=== PATIENT | female | born 1965 | race Caucasian/White ===

== ENCOUNTER → 2023-10-20 12:43 | Outpatient (REF) | payer OTHER, SELFPAY | LOC: RADI 12:43 | PROVIDERS: ATTENDING PHYSICIAN Surgery; FAMILY PHYSICIAN Nurse Practitioner Family | DX: Z46.82 Encounter for fitting and adjustment of non-vascular catheter (principal); K65.1 Peritoneal abscess | CPT/HCPCS: 49424; 76080 ==

== ENCOUNTER → 2024-01-02 12:45 | Outpatient (REF) | payer OTHER, SELFPAY ==
[2024-01-02 13:00] VITALS: BP 162/85; BP_SYST 79
[2024-01-02 13:38] VITALS: BP 148/95; BP_SYST 74
[2024-01-02 13:52] VITALS: BP 148/95
== END ==
LOC: RADI 12:45
PROVIDERS: ATTENDING PHYSICIAN Surgery; FAMILY PHYSICIAN Nurse Practitioner Family
DX: K57.20 Diverticulitis of large intestine with perforation and abscess without bleeding (principal); K63.2 Fistula of intestine
CPT/HCPCS: 49423; 75984; C1729; C1769

== ENCOUNTER 2024-01-06 17:08 | Emergency (ER) | payer OTHER, SELFPAY ==
[2024-01-06 17:09] VITALS: BP 142/95
[2024-01-06] MEDS: OMNIPAQUE 50 ML PO (17:53)
[2024-01-06 18:00] VITALS: BP 141/116
[2024-01-06 18:01] VITALS: BMI 20.2
[2024-01-06] MEDS: NSS 500 IV (18:13)
[2024-01-06 18:22] LABS: % Basophils 1.1 % (0-2); % Eosinophils 2.4 % (0-6); % Immature Granulocytes 0.2 % (0-0.5); % Lymphocytes 26.2 % (20.5-51.1); % Monocytes 6.3 % (1.7-9.3); % Neutrophils 63.8 % (42.2-75.2); Absolute Basophils 0.1 10^3/uL (0-0.2); Absolute Eosinophils 0.2 10^3/uL (0-0.7); Absolute Lymphocytes 2.2 10^3/uL (1.2-3.4); Absolute Monocytes 0.5 10^3/uL (0.1-0.6); Absolute Neutrophils 5.4 10^3/uL (1.4-6.5); Hematocrit 40.6 % (37.0-47.0); Hemoglobin 14.6 g/dL (12.0-16.0); Mean Corpuscular Hgb 31.1 pg (27.0-31.0); Mean Corpuscular Volume 86.6 fL (81.0-99.0); Mean Platelet Volume 8.8 fL (7.4-10.4); Nucleated Red Blood Cells % 0 %; Platelet Count 407 10^3/uL (130-400); Red Blood Cell Count 4.69 10^6/uL (4.20-5.40); Red Cell Dist. Width 12.1 % (11.5-14.5); White Blood Cell Count 8.5 10^3/uL (4.8-10.8)
[2024-01-06 18:33] LABS: Blood Urea Nitrogen 16 mg/dl (7-17); Calcium 11.2 mg/dl (8.4-10.2); Carbon Dioxide 28 mmol/L (22-30); Chloride 101 mmol/L (98-107); Estimated Creatinine Clearance 91 ml/min; Glucose 101 mg/dl (70-99); Magnesium 2.1 mg/dl (1.6-2.3); Potassium 5.3 mmol/L (3.5-5.1); Sodium 135 mmol/L (135-145); eGFR > 60.00
[2024-01-06 19:00] VITALS: BP 143/80
--- NOTE | 2024-01-06 20:31 | ED.GENMED ---
History of Present Illness
General
Chief Complaint: Post Operative Problem(s)
Source: patient
Exam Limitations: none
Time Seen by Provider: 01/06/24 17:37
Nursing documentation reviewed up to this point in time: agreed with
Travel History
Have you had any contact with someone who has COVID-19?: No
Do you have any symptoms of coronavirus? Fever > 100 degrees, chills, cough, shortness of breath, sore throat, loss of taste or smell, muscle aches, or headache?: No
History of Present Illness
History of Present Illness:
Patient with history of intra-abdominal abscess likely secondary to diverticulitis in August 2023, who has had drain in place since then, presents to ED from colorectal surgeons office secondary to ongoing intermittent pelvic discomfort, after
catheter was exchanged 4 days ago. Denies fever or chills. Denies nausea or vomiting. Denies diarrhea. Denies new trauma. Denies loss of appetite.
Past History
Past History
ED Past Medical History: Asthma, GERD, Hypercholesterolemia and Other ('Angina', migraines, Endometriosis, Deviated septum, )
ED Past Surgical History: Cholecystectomy, (X 2), Tonsilectomy and Other (Tracheostomy with removal)
Social History
Tobacco: Non-smoker
Alcohol: None
Drug: None
Personal: Other (Seperated)
Living: with family
Employment: Employed
Review of Systems
Review of Systems
Allergies reviewed?: Yes
All Other Systems: ROS reviewed and negative except as documented in HPI and ROS
Constitutional: Reports no symptoms; Denies fever
EENT: Reports no symptoms
ABD/GI: Reports abdominal pain; Denies vomiting or diarrhea
Musculoskeletal: Reports no symptoms
Skin: Reports no symptoms
Neurological: Reports no symptoms
Phy Exam
Physical Exam
Physical Exam:
Physical Exam
General: no apparent distress, not acutely ill. afebrile
Head: nc/at. eomi
Neck: supple. no meningeal signs.
Abdomen: normal bowel sounds. mild suprapubic tenderness to palpation, with catheter in place, attached to bulb.
Neuro: alert and oriented. no focal neurological deficits
Skin: no rash
Psychiatric: well kept. interactive and cooperative
Extremities: no edema. no calf tenderness.
Course
Orders/Labs/Results
Orders:
Orders
01/06/24 17:43
0.9% Sodium Chloride 500 ml [Nss] 500 ml IV BOLUS
01/06/24 17:46
CT Abd/pel W Iv And Oral Contr Urgent
Comment:
Reason For Exam: Lower abd pain after catheter exchange
Iohexol [Omnipaque] See Protocol PO NOW STA
01/06/24 18:11
Basic Metabolic Panel Urgent
Complete Blood Count/With Diff Urgent
Magnesium Urgent
Abnormal Lab Results
01/06/24
18:11
MCH 31.1 H pg
(27.0-31.0)
Plt Count 407 H 10^3/uL
(130-400)
Potassium 5.3 H mmol/L
(3.5-5.1)
Glucose 101 H mg/dl
(70-99)
Calcium 11.2 H mg/dl
(8.4-10.2)
01/06/24 18:11
01/06/24 18:11
Vital Signs
Initial and Last Documented VS:
Initial Vital Signs
Temp Pulse Resp BP Pulse Ox
98.4 F 94 18 142/95 98
01/06/24 17:09 01/06/24 17:09 01/06/24 17:09 01/06/24 17:09 01/06/24 17:09
Last Documented Vital Signs
Temp Pulse Resp BP Pulse Ox
98.4 F 94 18 139/86 98
01/06/24 17:09 01/06/24 17:09 01/06/24 17:09 01/06/24 21:02 01/06/24 21:03
MDM/Problems Addressed
MDM/Problems Addressed:
CT abd/pel: no acute findings.
Discussed with (colorectal surgery) - recommends catheter removal and office f/u in 1-2 wks.
Catheter successfully removed without complication. Pt is otherwise, afebrile, hemodynamically stable and nontoxic appearing at time of discharge, to the care of her family.
*Critical Care Note
Total Time (30-74mins, 75-104mins- exclusive of procedures): Not Applicable
ED Attending Note
-
Portions of this chart may have been created with voice recognition software.� Occasional wrong word or��sound alike� substitutions may have occurred due to the inherent limitations of voice recognition software.
Discharge Plan
Departure
Patient Disposition: Home (Routine Discharge)
Date of Disposition: 01/06/24
Time of Disposition: 20:56
Patient with high blood pressure during this ER visit?: Yes
Discharge Problem:
Abdominal pain
Instructions: Abdominal Pain
Prescriptions:
No Action
aspirin 81 MG tablet,delayed release (DR/EC)
81 mg PO DAILY PRN (Reason: chest pain)
albuterol sulfate 2.5 MG/3 ML solution for nebulization
2.5 mg inhalation R Q4HPRN PRN (Reason: shortness of breath) Qty: 30 0RF
pantoprazole 40 mg tablet,delayed release (DR/EC)
40 mg PO DAILY 30 Days Qty: 30 0RF
Referrals:
Kati Devine CRNP [Family Provider] -
Mino Mock MD [Active] -
Activity Restrictions/Additional Instructions:
As discussed, please follow-up with your colorectal surgeon for reevaluation in 1 to 2 weeks. Please return to ED with recurrent abdominal pain/fever/vomiting.
Interventions
Interventions:
*Risk Screen - Suicide Last Done: 01/06/24 18:01
*General Assessment Last Done: 01/06/24 18:01
*Neglect/Abuse Screening Last Done: 01/06/24 18:01
ED- Fall Risk Assessment Last Done: 01/06/24 18:01
*ED COVID-19 Vaccine History Last Done: 01/06/24 17:09
*Nursing Disposition Last Done: 01/06/24 21:06
ED-Skin Assessment Last Done: 01/06/24 18:01
Discharge Date and Time
Discharge Date/Time: 01/06/24 21:10
Print Language: THAI
[2024-01-06 21:02] VITALS: BP 139/86
== END 2024-01-06 21:10 | disposition home or self-care (01) ==
LOC: EMR 17:08
PROVIDERS: EMERGENCY PHYSICIAN Emergency Medicine; FAMILY PHYSICIAN Nurse Practitioner Family
DX: R10.2 Pelvic and perineal pain (principal); K65.1 Peritoneal abscess; K21.9 Gastro-esophageal reflux disease without esophagitis; E78.00 Pure hypercholesterolemia, unspecified; J45.909 Unspecified asthma, uncomplicated; I20.9 Angina pectoris, unspecified; G43.909 Migraine, unspecified, not intractable, without status migrainosus; N80.9 Endometriosis, unspecified; Z79.82 Long term (current) use of aspirin; Z90.49 Acquired absence of other specified parts of digestive tract; Z88.0 Allergy status to penicillin
CPT/HCPCS: 99285; 74177; 80048; 83735; 85025; Q9967

== ENCOUNTER 2024-01-14 00:46 | Inpatient (IN) | payer OTHER, SELFPAY ==
[2024-01-13 18:49] VITALS: BP 158/83
[2024-01-13 19:12] LABS: % Basophils 0.6 % (0-2); % Eosinophils 1.3 % (0-6); % Immature Granulocytes 0.7 % (0-0.5); % Lymphocytes 17.4 % (20.5-51.1); % Monocytes 9.2 % (1.7-9.3); % Neutrophils 70.8 % (42.2-75.2); Absolute Basophils 0.1 10^3/uL (0-0.2); Absolute Eosinophils 0.2 10^3/uL (0-0.7); Absolute Immature Granulocytes 0.1 10^3/uL (0-0.05); Absolute Lymphocytes 2.4 10^3/uL (1.2-3.4); Absolute Monocytes 1.3 10^3/uL (0.1-0.6); Absolute Neutrophils 9.7 10^3/uL (1.4-6.5); Hematocrit 39.7 % (37.0-47.0); Hemoglobin 14.2 g/dL (12.0-16.0); Mean Corp Hgb Conc. 35.8 g/dL (33.0-37.0); Mean Corpuscular Hgb 31.3 pg (27.0-31.0); Mean Corpuscular Volume 87.6 fL (81.0-99.0); Mean Platelet Volume 8.2 fL (7.4-10.4); Nucleated Red Blood Cells % 0 %; Platelet Count 463 10^3/uL (130-400); Red Blood Cell Count 4.53 10^6/uL (4.20-5.40); White Blood Cell Count 13.7 10^3/uL (4.8-10.8)
[2024-01-13 19:13] LABS: Urine Albumin Trace (Neg - Trace); Urine Bilirubin 1+ (Negative); Urine Character Clear (Clear); Urine Color Yellow; Urine Glucose Negative (Negative); Urine Ketone Negative (Negative); Urine Leukocyte 2+ (Negative); Urine Nitrite Negative (Negative); Urine Occult Blood 2+ (Negative); Urine Urobilinogen Negative (Neg - 1+)
[2024-01-13 19:24] LABS: Urine Squamous Cell >30 /LPF (Few)
[2024-01-13 19:25] LABS: Urine White Cell 16-20 /HPF (0-5)
[2024-01-13 19:26] LABS: Urine Bacteria Few (Negative)
[2024-01-13 19:34] LABS: ALT (SGPT) 10 U/L (0-35); AST (SGOT) 17 U/L (14-36); Albumin 4.5 g/dl (3.5-5.0); Alkaline Phosphatase 101 U/L (38-126); Blood Urea Nitrogen 15 mg/dl (7-17); Calcium 10.7 mg/dl (8.4-10.2); Carbon Dioxide 24 mmol/L (22-30); Chloride 99 mmol/L (98-107); Glucose 117 mg/dl (70-99); Potassium 4.1 mmol/L (3.5-5.1); Sodium 137 mmol/L (135-145); Total Bilirubin 0.6 mg/dl (0.2-1.3); Total Protein 8.4 g/dl (6.3-8.2); eGFR > 60.00
[2024-01-13 19:48] VITALS: BMI 19.9
--- NOTE | 2024-01-13 20:14 | ED.GENMED ---
History of Present Illness
General
Chief Complaint: Abdominal Pain
Source: patient, records and family
Time Seen by Provider: 01/13/24 19:56
Travel History
Have you had any contact with someone who has COVID-19?: No
Do you have any symptoms of coronavirus? Fever > 100 degrees, chills, cough, shortness of breath, sore throat, loss of taste or smell, muscle aches, or headache?: No
History of Present Illness
History of Present Illness:
This patient is a 58-year-old female with a history of diverticulitis with abscess requiring prolonged drainage in her abdomen, most recently removed approximately a week ago who presents emergency department with complaints of achy discomfort
described as 'crampy' across her lower abdomen associated with intermittent nausea and mild anorexia. She says she is not sure if it is related to a new bladder infection. The symptoms started a few days ago. She does note dysuria, urgency and
frequency. She denies flank pain, fever, chills, vomiting. She denies chest pain, dyspnea, vaginal ear discharge. Her bowel movements have been normal without blood or black stool. The pain is constant, but is worse when she urinates and is
mostly centrally located
Past History
Past History
ED Past Medical History: Asthma, GERD, Hypercholesterolemia and Other ('Angina', migraines, Endometriosis, Deviated septum, )
ED Past Surgical History: Cholecystectomy, (X 2), Tonsilectomy and Other (Tracheostomy with removal)
Social History
Tobacco: Non-smoker
Alcohol: None
Drug: None
Personal: Other (Seperated)
Living: with family
Employment: Employed
Phy Exam
Physical Exam
Physical Exam:
GENERAL: Alert , in no apparent distress
EYE: pupils equal and reactive
NECK: Supple, no significant adenopathy.
ENT: o/p clr, mm slightly dry.
CARDIAC: Regular rate and rhythm .
LUNGS: Clear breath sounds bilaterally, no acute respiratory distress, no wheezes/rales/rhonchi
ABDOMEN: Soft, diffuse lower abdominal tenderness particularly in the area just inferior to the umbilicus, no r/g, no cvat
NEUROLOGICAL: Alert and oriented, no focal neuro deficits
SKIN: Warm and dry, skin intact.
MUSCULOSKELETAL: No edema, well perfused.
PSYCH: Normal and appropriate interaction.
Course
Orders/Labs/Results
Orders:
Orders
01/13/24 19:02
CBC/With Diff [Complete Blood Count/With Diff] Urgent
CMP [Comprehensive Metabolic Panel] Urgent
Urinalysis Reflex To Culture Urgent
Date Specimen was Collected: 01/13/24
Time Specimen was Collected: 18:56
Urine Microscopic Reflex Cult Urgent
Urine Culture Urgent
CRISPIN Source: U
Specimen Description:
Date Specimen was Collected: 01/13/24
Time Specimen was Collected: 18:56
01/13/24 20:11
0.9% Sodium Chloride 1000 ml [Nss] 1,000 ml IV BOLUS
Ondansetron Injectable [Zofran] 4 mg IV NOW STA
01/13/24 20:13
CT Abd/Pel (IV only)-DH only Urgent
Comment:
Reason For Exam: hx divertic with abscess, now lower abd pain
01/13/24 22:41
LevoFLOXacin 500 mg IVPB NOW LevoFLOXacin 500 MG/100 ML [Levaquin] 500 mg in 100 ml IV NOW
MetroNIDAZOLE IVPB 500 mg IVPB NOW MetroNIDAZOLE 500 MG/100 ML [Flagyl 500 mg] 100 ml IV NOW
Abnormal Lab Results
01/13/24
19:02
WBC 13.7 H 10^3/uL
(4.8-10.8)
MCH 31.3 H pg
(27.0-31.0)
Plt Count 463 H 10^3/uL
(130-400)
Abs Immat Gran (auto) 0.1 H 10^3/uL
(0-0.05)
Absolute Neuts (auto) 9.7 H 10^3/uL
(1.4-6.5)
Absolute Monos (auto) 1.3 H 10^3/uL
(0.1-0.6)
Immature Gran % 0.7 H %
(0-0.5)
Lymphocytes % 17.4 L %
(20.5-51.1)
Glucose 117 H mg/dl
(70-99)
Calcium 10.7 H mg/dl
(8.4-10.2)
Total Protein 8.4 H g/dl
(6.3-8.2)
Ur Occult Blood Reflex 2+ A
(Negative)
Urine Bilirubin 1+ A
(Negative)
Leukocyte Esterase Rfl 2+ A
(Negative)
Urine RBC 3-6 A /HPF
(0-2)
Urine WBC (Reflex) 16-20 A /HPF
(0-5)
Urine Bacteria (Reflex) Few A
(Negative)
01/13/24 19:02
01/13/24 19:02
Vital Signs
Initial and Last Documented VS:
Initial Vital Signs
Temp Pulse Resp BP Pulse Ox
98.4 F 88 16 158/83 98
01/13/24 18:49 01/13/24 18:49 01/13/24 18:49 01/13/24 18:49 01/13/24 18:49
Last Documented Vital Signs
Temp Pulse Resp BP Pulse Ox
98.4 F 88 16 158/83 98
01/13/24 18:49 01/13/24 18:49 01/13/24 18:49 01/13/24 18:49 01/13/24 18:49
*Critical Care Note
Total Time (30-74mins, 75-104mins- exclusive of procedures): Not Applicable
Update Note
Update Note:
Patient presents to the Emergency Department with ___abdominal pain, dysuria, urgency, frequency
Number and Complexity of Problems Addressed at the Encounter
� Chronic conditions affecting care:
� Acute Exacerbation and/or Progression of Chronic Illness:
� Differential Diagnosis includes: But not limited to UTI, intra-abdominal collection, urinary retention, etc.
Amount and/or Complexity of Data to be Reviewed and Analyzed
� I performed an independent evaluation of and my interpretation is:
EKG:
CT: New abscess noted measuring 5 x 4 cm on the right side of the pelvis
Xrays:
Laboratory Studies: New leukocytosis
Other:
� Review of other/old records reveals: Records reviewed from admission August 2023 patient had intra-abdominal abscess with involvement of the ovary and uterus
� Clinical information was obtained by an independent historian:
� Prescriptions/Medications Considered but not given:
� Further testing considered but not performed:
Risk of Complications and/or Morbidity or Mortality of Patient Management
� Social determinants of health affecting care:
� Discussion with other providers (PCP, Hospitalists, Consultants, etc):
� Escalation of care including admission/observation vs risk of discharge considered: Case discussed with colorectal, Dr. Hartmann as well as hospitalist. Given patient has reaccumulation of abscess I will begin IV antibiotics
with likely IR consult in the morning for either drain placement or percutaneous drainage. Patient is not septic, overall well-appearing. Family at bedside and updated as well.
ED Attending Note
-
Portions of this chart may have been created with voice recognition software.� Occasional wrong word or��sound alike� substitutions may have occurred due to the inherent limitations of voice recognition software.
Discharge Plan
Departure
Patient Disposition: Admit
Date of Disposition: 01/13/24
Time of Disposition: 22:42
Admit to: Med/Surg
Admit to doctor: ajay
Presentation/result/management discussed w/ accepting MD/DO: Hospitalist
Condition: Fair
Discharge Problem:
Intra-abdominal abscess
Prescriptions:
No Action
aspirin 81 MG tablet,delayed release (DR/EC)
81 mg PO DAILY PRN (Reason: chest pain)
albuterol sulfate 2.5 MG/3 ML solution for nebulization
2.5 mg inhalation R Q4HPRN PRN (Reason: shortness of breath) Qty: 30 0RF
pantoprazole 40 mg tablet,delayed release (DR/EC)
40 mg PO DAILY 30 Days Qty: 30 0RF
Referrals:
Kati Devine CRNP [Family Provider] -
Interventions
Interventions:
*Risk Screen - Suicide Last Done: 01/13/24 18:53
*General Assessment Last Done: 01/13/24 18:53
*Neglect/Abuse Screening Last Done: 01/13/24 18:53
UR-Tvvbao-Vhuhssttrd Assessment Last Done: 01/13/24 19:48
Discharge Date and Time
Print Language: GRENADIAN
[2024-01-13] MEDS: ZOFRAN 4 MG IV (21:18)
[2024-01-13] MEDS: NSS 1000 IV (21:18)
[2024-01-13 23:37] VITALS: BP 169/95
[2024-01-13] MEDS: LEVAQUIN 100 IV (23:39)
[2024-01-14] VITALS (13 sets, daily range): BP systolic 84–159; BP diastolic 73–100
[2024-01-14] MEDS: TORADOL 15 MG IV (00:08)
--- NOTE | 2024-01-14 00:21 | HPS.HSE ---
Family Physician
-
Family Physician: COSMO Lei
Chief Complaint
-
Abd Pain
History of Present Illness
Patient is a 58y F with PMH significant for asthma and complicated diverticulitis who presents to ED complaining of abdominal pain and nausea. Patient was previously hospitalized here at in 08/2023 for complicated diverticulitis with
intra-abdominal abscess formation. She underwent IR drain placement at that time and was treated with IV abx. She has been followed by ColoRectal Surgery with plans for eventual colonoscopy +/- elective partial colectomy. Patient states that she
was evaluated here last Tuesday and imaging at that time showed no residual fluid in the abdomen. Her drainage catheter was removed at that time.
Since then, patient has noted cramping abdominal pain that has gradually increased. She appreciates recurrent distention of the abdomen. Her symptoms are similar to - if far less severe - than her original presentation. She complains of nausea
and poor appetite, but no emesis. She denies any constipation, diarrhea, black or bloody stools.
Patient denies any fevers or chills.
With persistent pain and nausea, she presented to the ED today for further evaluation.
Medical History
Past Medical History
Past Medical History: Reports Other
Additional Past Medical History:
Asthma
'Angina'
Migraine Headaches
Endometriosis
Complicated Divrerticulitis
Past Surgical History: Reports Other
Additional Past Surgical History:
T&A
x 2
Tracheostomy (Complication during a )
Cholecystectomy
Multiple Ex-Laps for Endometriosis
Social History
Tobacco: Non-smoker
Alcohol: None
Drug: None
Living: With Family
Family History
Family History: Other (Daughter: Liver Cancer Father: Colon Cancer Mother: Diverticular Disease)
Allergies / Home Medications
Allergies reflects when Allergies were last updated in [facility].
Home Medications with original date entered in [facility]
Allergy/Medication List:
Allergies
Allergy/AdvReac Type Severity Reaction Status Date / Time
Penicillins Allergy convulsions Verified 01/13/24 18:48
Home Medications
pantoprazole 40 mg tablet,delayed release 40 mg PO DAILY 30 days #30 tabs 08/17/23
ibuprofen 400 mg tablet 400 mg PO Q6HPRN PRN mild pain 01/13/24
montelukast 10 mg tablet (Singulair) 10 mg PO DAILY 01/13/24
Review of Systems
-
History Source: Patient
A 12 point ROS was completed and negative except as noted: Yes
Constitutional: Denies Fever or Chills
Respiratory: Denies Cough or Trouble Breathing
Cardiac: Denies Chest Pain or Palpitations
Abdomen/GI: Reports Abdominal Pain and Nausea; Denies Vomiting, Diarrhea, Constipated, Bloody Stools or Black Stools
: Denies Dysuria or Flank Pain
Neurological: Denies Dizzy or Headache
Psych: Reports Anxiety; Denies Depression
Physical Exam
Vital Signs
Vital Signs
Temp Pulse Resp BP Pulse Ox
99.0 F 97 16 169/95 97
01/13/24 23:37 01/13/24 23:37 01/13/24 23:37 01/13/24 23:37 01/13/24 23:45
Physical Exam
General: Other (58y F in no acute distress.)
HEENT: Moist mucous membranes and PERRLA
Respiratory: Clear; No Wheezes, Rales or Rhonchi
Cardiac: S1/S2 and Regular Rhythm; No Murmur
GI: Other (Softly distended. Tenderness along lower abdomen. Pos BS. No rebound or guarding.)
Musculoskeletal: No Clubbing, No Cyanosis and No Edema
Neuro: AO x 3
Laboratory Results
-
01/13/24 19:02
01/13/24 19:02
Laboratory Results
Total Bilirubin 0.6 mg/dl (0.2-1.3) 01/13/24 19:02
AST 17 U/L (14-36) 01/13/24 19:02
ALT 10 U/L (0-35) 01/13/24 19:02
Alkaline Phosphatase 101 U/L (38-126) 01/13/24 19:02
Impression/Plan
-
A/P: Patient is a 58y F with PMH significant for asthma and complicated diverticulitis who presents to ED complaining of abdominal pain and nausea.
Complicated Diverticulitis
Intra-Abdominal Abscess secondary to the above
- Admit for further evaluation and treatment.
- Patient with re-accumulation of abscess in same location following drain removal last Tuesday.
- Currently not febrile, toxic-appearing, etc.
- Resume IV abx for now.
- IVF support, antiemetics, etc.
- IR evaluation for possible drain replacement.
- ColoRectal Surgery evaluation.
- Follow for any new / worsening symptoms or complaints.
Asthma without Acute Exacerbation
- Stable. Continue Singulair.
- Albuterol PRN.
DVT Prophylaxis: Lovenox
Code Status: Full
[2024-01-14] MEDS: FLAGYL 500 MG 100 IV ×3 (00:45→15:54)
[2024-01-14] MEDS: NSS 1000 IV ×2 (02:10→14:05)
[2024-01-14] MEDS: MELATONIN 5 MG PO (03:37)
[2024-01-14 04:26] LABS: Hematocrit 34.7 % (37.0-47.0); Hemoglobin 12.3 g/dL (12.0-16.0); Mean Corp Hgb Conc. 35.4 g/dL (33.0-37.0); Mean Corpuscular Hgb 31.1 pg (27.0-31.0); Mean Corpuscular Volume 87.6 fL (81.0-99.0); Mean Platelet Volume 8.4 fL (7.4-10.4); Platelet Count 417 10^3/uL (130-400); Red Blood Cell Count 3.96 10^6/uL (4.20-5.40); Red Cell Dist. Width 11.8 % (11.5-14.5); White Blood Cell Count 15.1 10^3/uL (4.8-10.8)
[2024-01-14 04:46] LABS: Blood Urea Nitrogen 12 mg/dl (7-17); Calcium 9.5 mg/dl (8.4-10.2); Carbon Dioxide 23 mmol/L (22-30); Chloride 105 mmol/L (98-107); Estimated Creatinine Clearance 89 ml/min; Glucose 116 mg/dl (70-99); Sodium 135 mmol/L (135-145); eGFR > 60.00
[2024-01-14] MEDS: TYLENOL 650 MG PO ×2 (06:53→19:24)
[2024-01-14] MEDS: COMPAZINE 5 MG IV ×2 (06:54→21:27)
[2024-01-14] MEDS: PROTONIX IV 40 MG IV (08:46)
[2024-01-14] MEDS: NSS (PRESERVATIVE FREE) 10 ML IV (08:46)
[2024-01-14] MEDS: SINGULAIR PO (08:47)
--- NOTE | 2024-01-14 10:58 | CON.CRS ---
Consultation
-
Date/Time Consultation Requested: 01/14/24 0154
Requesting Provider: Lee
Reason for Consultation: Intra-Abdominal Abscess
Medical History
-
Chief Complaint: Abdominal pain
History of Present Illness:
Ms Shankar is a 58 yo female who has been following with Dr Mock for complicated diverticulitis with abscess. She had IR drainage of the abscess in August with upsizing of drain as an outpatient in September. On January 01, drain study showed
resolution of abscess and the drain was removed in IR. Outpatient colonoscopy planned in follow up. She presents this admission with worsening suprapubic abdominal pain with nausea and poor appetite for the past 3 days. She denies fevers at home,
but did have a low grade fever of 100 overnight. On exam, she is tender to the lower abdomen. She is uncomfortable appearing and notes she is quite tired.
Past Medical History
Past Medical History: Asthma, Diverticulitis (complicated by abscess with IR drain placed in 08/14/2023 and removed on 01/02/24) and Other (Migraines, endometriosis)
Past Surgical History: Cholecystectomy, (x2), Gynecological (dx lap for endometriosis), Tonsilectomy and Other (tracheostomy as complication of (removed))
Social History
Tobacco: Non-Smoker
Alcohol: None
Family History
Family History: Cancer (colon ca in father)
Allergies / Home Medications
Allergy/AdvReac Type Severity Reaction Status Date / Time
Penicillins Allergy convulsions Verified 01/13/24 18:48
�Medication �Instructions �Recorded �Confirmed �Type
pantoprazole 40 mg tablet,delayed 40 mg PO DAILY 30 days #30 tabs 08/17/23 01/13/24 Rx
release
ibuprofen 400 mg tablet 400 mg PO Q6HPRN PRN mild pain 01/13/24 01/13/24 History
montelukast 10 mg tablet 10 mg PO DAILY 01/13/24 01/13/24 History
(Singulair)
Review of Systems
-
History Source: Patient and Family
All other systems: Negative unless noted
A 10 point review of systems was completed, and was negative except as per HPI.
Physical Exam
Vital Signs
Temp 99.1 F 01/14/24 07:35
Pulse 98 01/14/24 07:35
Resp Rate 16 01/14/24 07:35
Blood pressure 141/88 01/14/24 07:35
SaO2 95 01/14/24 07:35
01/13/24 01/14/24 01/15/24
06:59 06:59 06:59
Actual Weight 56 kg
Body Mass Index (BMI) 19.9
Lab Results / Allergies
01/14/24 04:12
01/14/24 04:12
WBC 15.1 10^3/uL (4.8-10.8) H 01/14/24 04:12
Hgb 12.3 g/dL (12.0-16.0) 01/14/24 04:12
Hct 34.7 % (37.0-47.0) L 01/14/24 04:12
Plt Count 417 10^3/uL (130-400) H 01/14/24 04:12
Abs Immat Gran (auto) 0.1 10^3/uL (0-0.05) H 01/13/24 19:02
Neutrophils % 70.8 % (42.2-75.2) 01/13/24 19:02
Allergy/AdvReac Type Severity Reaction Status Date / Time
Penicillins Allergy convulsions Verified 01/13/24 18:48
Physical Exam
General: No Apparent Distress; Negative Comfortable
HEENT: Moist Mucous Membranes
Respiratory: Non Labored Respirations
GI: Soft, Non Distended and Tender (lower abd)
Skin: Warm
Neuro: Awake, Alert and AO x 3
Psych: Calm
Data Reviewed
-
CT Scan: Image Personally Visualized and interpreted, Report Reviewed by me, Discussed with Physician, Discussed with Patient and Discussed with Family
Labs: Labs Reviewed by me, Discussed with Physician, Discussed with Patient and Discussed with Family
Old Records: Reviewed
Assessment / Plan
-
This is a 58 yo female who has been following with Dr Mock for complicated diverticulitis with abscess. She had IR drainage of the abscess in August with upsizing of drain as an outpatient in September. On January 01, drain study showed resolution of
abscess and the drain was removed in IR. She presents with abdominal pain/nausea worsening over the past few days with CT imaging demonstrated reaccumulation of abscess in the left pelvis with some mild bowel wall thickening of the descending colon.
Low grade temps, VSS. Leukocytosis present and rising.
--Plan IR drain placement
--OK for clear liquids after procedure
--Pain management
--Outpatient follow up for colonoscopy with eventual plan for partial colectomy pending colonoscopy findings
--- NOTE | 2024-01-14 13:22 | W.PN.UPDATE ---
Update Note
Progress Note Update
CT guided abscess drain placed, yielding 30 cc of purulent fluid. Sent for laboratory analysis.
--- NOTE | 2024-01-14 13:46 | W.PN.HOSP.TC ---
Today's Communication/Plan
-
IRAD, CRS consult
Levaquin/Flagyl ordered
Assessment / Plan
Assessment / Plan
A/P: Patient is a 58y F with PMH significant for asthma and complicated diverticulitis who presents to ED complaining of abdominal pain and nausea.
Complicated Diverticulitis
Intra-Abdominal Abscess secondary to the above
- Patient with re-accumulation of abscess in same location following drain removal last Friday 01/05, (after seeing Dr. Mock)
- Currently not febrile, toxic-appearing, etc.
- Resume IV abx for now.
- IVF support, antiemetics, etc.
- IRAD evaluation for possible drain replacement.
- ColoRectal Surgery evaluation.
- Follow for any new / worsening symptoms or complaints.
WBC on 01/05 was 8.5, on admit 13.7, 01/13 15.1
Now on Levaquin/Flagyl (listed PCN causes seizures)
Asthma without Acute Exacerbation
- Stable. Continue Singulair.
- Albuterol PRN.
DVT Prophylaxis: Lovenox
Code Status: Full
reviewed situation extensively with Gina ann) in room
Anticipated Discharge: > 48 hours
Subjective/Interval History
-
Date of Service: January 14, 2024
Recurrent abd pain
Objective Data
-
Labs:
Laboratory Results
01/14/24
04:12
WBC 15.1 H
Hgb 12.3
Hct 34.7 L
Plt Count 417 H
Sodium 135
Potassium 4.0
Chloride 105
Carbon Dioxide 23
BUN 12
Creatinine 0.6
Glucose 116 H
Calcium 9.5
Vital Signs:
Vital Signs
Temp Pulse Resp BP Pulse Ox
98.6 F 86 14 128/84 95
01/14/24 13:20 01/14/24 13:42 01/14/24 13:42 01/14/24 13:42 01/14/24 13:40
I&O
01/13/24 01/14/24 01/15/24
06:59 06:59 06:59
Intake Total 500 / 500 100 / 100
Balance 500 / 500 100 / 100
Review of Systems
-
History Source: Patient and Family (reviewed with luct, Gina in room)
Constitutional: Reports No Symptoms; Denies Fever
EENT: Reports No Symptoms Reported
Respiratory: Reports No Symptoms
Cardiac: Reports No Symptoms
Abdomen/GI: Reports Abdominal Pain
Neuro: Reports No Symptoms
Physical Exam
-
General: Well Developed and No Apparent Distress; Negative Well Nourished (thin)
HEENT: Normocephalic, Atraumatic and Moist Mucous Membranes
Respiratory: Clear to Auscultation; Negative Wheezes, Rales or Rhonchi
Cardiac: Regular Rhythm and S1/S2
GI: Soft and Tender; Negative Normal Bowel Sounds (diminished)
Musculoskeletal: No Clubbing, No Cyanosis and No Edema
Skin: Warm and Dry
--- NOTE | 2024-01-14 14:27 | CM ---
CM following re: discharge planning.
Reviewed pt's chart, met with pt. Pt's daughter and pt's son at bedside.
Pt is a 58 year old female, admitted with primary dx of Abscess.
Pt reports she lives with 3 adult children in a 2SH, 1 step to enter. Pt described herself as independent in all areas [employer]. Pt stated she had before [facility] and home infusion therapy with [facility].
PCP: Kati Adames
Pharmacy: [facility]
D/C plan: home with anticipated no needs. family to transport at discharge.
CM will follow with discharge plan updates as hospitalization progresses
[2024-01-14] MEDS: LOVENOX 40 MG SC (18:45)
[2024-01-14] MEDS: TORADOL 10 MG IV (21:24)
[2024-01-15] MEDS: FLAGYL 500 MG 100 IV ×4 (00:56→23:28)
[2024-01-15] MEDS: LEVAQUIN 100 IV ×2 (00:56→23:28)
[2024-01-15] MEDS: NSS 1000 IV ×3 (01:56→23:23)
[2024-01-15] MEDS: TORADOL 10 MG IV ×2 (06:48→23:24)
[2024-01-15] MEDS: COMPAZINE 5 MG IV ×2 (06:49→23:26)
[2024-01-15 07:09] LABS: % Basophils 0.5 % (0-2); % Eosinophils 1.3 % (0-6); % Immature Granulocytes 0.6 % (0-0.5); % Lymphocytes 21.5 % (20.5-51.1); % Monocytes 8.5 % (1.7-9.3); % Neutrophils 67.6 % (42.2-75.2); Absolute Eosinophils 0.1 10^3/uL (0-0.7); Absolute Immature Granulocytes 0.1 10^3/uL (0-0.05); Absolute Lymphocytes 1.9 10^3/uL (1.2-3.4); Absolute Monocytes 0.7 10^3/uL (0.1-0.6); Absolute Neutrophils 5.9 10^3/uL (1.4-6.5); Hematocrit 33.4 % (37.0-47.0); Hemoglobin 11.9 g/dL (12.0-16.0); Mean Corp Hgb Conc. 35.6 g/dL (33.0-37.0); Mean Corpuscular Hgb 31.6 pg (27.0-31.0); Mean Corpuscular Volume 88.6 fL (81.0-99.0); Mean Platelet Volume 8.4 fL (7.4-10.4); Nucleated Red Blood Cells % 0 %; Platelet Count 459 10^3/uL (130-400); Red Blood Cell Count 3.77 10^6/uL (4.20-5.40); Red Cell Dist. Width 11.6 % (11.5-14.5); White Blood Cell Count 8.7 10^3/uL (4.8-10.8)
[2024-01-15 07:20] VITALS: BP 125/69
[2024-01-15 07:56] LABS: Blood Urea Nitrogen 10 mg/dl (7-17); Calcium 9.1 mg/dl (8.4-10.2); Carbon Dioxide 23 mmol/L (22-30); Chloride 105 mmol/L (98-107); Estimated Creatinine Clearance 89 ml/min; Glucose 115 mg/dl (70-99); Potassium 3.8 mmol/L (3.5-5.1); Sodium 135 mmol/L (135-145); eGFR > 60.00
[2024-01-15] MEDS: PROTONIX IV 40 MG IV (08:11)
[2024-01-15] MEDS: NSS (PRESERVATIVE FREE) 10 ML IV (08:11)
--- NOTE | 2024-01-15 09:52 | W.PN.CRS1 ---
Addendum entered and electronically signed by Karl Hartmann MD 01/15/24 14:03:
I saw and examined the patient.
The WASTEWATER TREATMENT ENGINEER's note was reviewed and I agree with the note.
Comment:
Seen in am with WASTEWATER TREATMENT ENGINEER.
Occasional nausea. Less discomfort.
Vitals ok. WBC down to 8.7.
Abdomen mildly tender with IR drain putting out rust colored fluid.
Clears for now.
Continue antibiotics and drain care.
Original Note:
Today's Communication / Plan
-
Clears as tolerated, NPO if vomiting
Assessment/Plan
-
This is a 58 yo female who has been following with Dr Mock for complicated diverticulitis with abscess. She had IR drainage of the abscess in August with upsizing of drain as an outpatient in September. On January 01, drain study showed resolution of
abscess and the drain was removed in IR. She presents with abdominal pain/nausea worsening over the past few days with CT imaging demonstrated reaccumulation of abscess in the left pelvis with some mild bowel wall thickening of the descending colon.
AFVSS
Leukocytosis resolved s/p drain placement
Nausea today, still passing some flatus. High risk for ileus given intraabdominal abscess
--Continue IR drain with daily flush/local care
--Clears as tolerated
--Analgesics/antiemetics
--Continue abx
Anticipate drain staying in place until eventual interval sigmoidectomy in approx 4-6 weeks
Subjective Data
Subjective Data
Date of Service: January 15, 2024
Patient seen and examined at bedside. Reports abdominal pain has improved. Reports some nausea but no vomiting. Passing flatus. No BM since .
Objective Data
-
Vital Signs
Temp Pulse Resp BP Pulse Ox
98.4 F 88 16 125/69 95
01/15/24 07:20 01/15/24 07:20 01/15/24 07:20 01/15/24 07:20 01/15/24 07:20
Intake & Output
01/14/24 01/15/24 01/16/24
06:59 06:59 06:59
Intake Total 500 / 500 2190 / 2190
Output Total 100 / 100 30 / 30
Balance 500 / 500 2089 / 2089 -20 / -20
Intake:
Oral fluids 690 / 690
IV fluids (Total) 500 / 500 1200 / 1200
IV piggybacks 300 / 300
Amount instilled into Drain (
Total)
Lower Abdomen Omid-Sanchez
Placed in IR
Output:
Drain Output (Total) 100 / 100 30 / 30
Lower Abdomen Omid-Sanchez 100 / 100 30 / 30
Placed in IR
Other:
Number of approximated MODERATE 2
amounts of urine
Lab Results
01/15/24 06:25
01/15/24 06:25
Physical Exam
-
General: AOx3 and Other (uncomfortable appearing)
Abdomen: Soft, Non Distended, Non Tender and Other (IR drain with cloudy barahona fluid)
Skin: Warm and Dry
[2024-01-15] MEDS: SINGULAIR PO (11:47)
[2024-01-15] MEDS: TYLENOL 650 MG PO (15:07)
[2024-01-15 15:35] VITALS: BP 134/91
--- NOTE | 2024-01-15 16:43 | W.PN.HOSP.TC ---
Today's Communication/Plan
-
continue drain, IV abx, advance diet as per CRS
Assessment / Plan
Assessment / Plan
A/P: Patient is a 58y F with PMH significant for asthma and complicated diverticulitis who presents to ED complaining of abdominal pain and nausea.
Complicated Diverticulitis
Intra-Abdominal Abscess secondary to the above
- Patient with re-accumulation of abscess in same location following drain removal last Friday 01/05, (after seeing Dr. Mock)
- Currently not febrile, toxic-appearing, etc.
- Resumed IV abx
- IVF support, antiemetics, etc.
- IRAD drain replacement.
wound cx with Gm Neg bacilli
- ColoRectal Surgery evaluation appreciated.
- Follow for any new / worsening symptoms or complaints.
WBC on 01/05 was 8.5, on admit 13.7, 01/13 15.1, 01/14 8.7
Now on Levaquin/Flagyl (listed PCN causes seizures)
clear liquid diet
Asthma without Acute Exacerbation
- Stable. Continue Singulair.
- Albuterol PRN.
DVT Prophylaxis: Lovenox
Code Status: Full
reviewed situation with Gina ann in room 01/14
Anticipated Discharge: > 48 hours
Subjective/Interval History
-
Date of Service: January 15, 2024
In good spirits, pain has lessened
Objective Data
-
Labs:
Laboratory Results
01/15/24
06:25
WBC 8.7
Hgb 11.9 L
Hct 33.4 L
Plt Count 459 H
Sodium 135
Potassium 3.8
Chloride 105
Carbon Dioxide 23
BUN 10
Creatinine 0.4 L
Glucose 115 H
Calcium 9.1
Vital Signs:
Vital Signs
Temp Pulse Resp BP Pulse Ox
98.7 F 80 16 134/91 96
01/15/24 15:35 01/15/24 15:35 01/15/24 15:35 01/15/24 15:35 01/15/24 15:35
I&O
01/14/24 01/15/24 01/16/24
06:59 06:59 06:59
Intake Total 500 / 500 2189
Output Total 100 / 100
Balance 500 / 500 2089 -20 / -
Review of Systems
-
History Source: Patient and Family (reviewed with seth, Gina in room)
Constitutional: Reports No Symptoms; Denies Fever
EENT: Reports No Symptoms Reported
Respiratory: Reports No Symptoms
Cardiac: Reports No Symptoms
Abdomen/GI: Reports Abdominal Pain (has lessened)
Neuro: Reports No Symptoms
Physical Exam
-
General: Well Developed and No Apparent Distress; Negative Well Nourished (thin)
HEENT: Normocephalic, Atraumatic and Moist Mucous Membranes
Respiratory: Clear to Auscultation; Negative Wheezes, Rales or Rhonchi
Cardiac: Regular Rhythm and S1/S2
GI: Soft and Tender; Negative Normal Bowel Sounds (diminished)
Musculoskeletal: No Clubbing, No Cyanosis and No Edema
Skin: Warm and Dry
[2024-01-15] MEDS: LOVENOX 40 MG SC (17:28)
[2024-01-15 23:40] VITALS: BP 157/94
[2024-01-16 06:44] LABS: % Basophils 0.6 % (0-2); % Eosinophils 2.8 % (0-6); % Immature Granulocytes 0.6 % (0-0.5); % Lymphocytes 32.7 % (20.5-51.1); % Neutrophils 54.3 % (42.2-75.2); Absolute Eosinophils 0.2 10^3/uL (0-0.7); Absolute Lymphocytes 2.1 10^3/uL (1.2-3.4); Absolute Monocytes 0.6 10^3/uL (0.1-0.6); Absolute Neutrophils 3.5 10^3/uL (1.4-6.5); Hematocrit 32.9 % (37.0-47.0); Hemoglobin 11.7 g/dL (12.0-16.0); Mean Corp Hgb Conc. 35.6 g/dL (33.0-37.0); Mean Corpuscular Hgb 31.4 pg (27.0-31.0); Mean Corpuscular Volume 88.2 fL (81.0-99.0); Mean Platelet Volume 8.4 fL (7.4-10.4); Nucleated Red Blood Cells % 0 %; Platelet Count 388 10^3/uL (130-400); Red Blood Cell Count 3.73 10^6/uL (4.20-5.40); Red Cell Dist. Width 11.6 % (11.5-14.5); White Blood Cell Count 6.5 10^3/uL (4.8-10.8)
[2024-01-16 06:59] LABS: Blood Urea Nitrogen 9 mg/dl (7-17); Calcium 9.2 mg/dl (8.4-10.2); Carbon Dioxide 23 mmol/L (22-30); Chloride 107 mmol/L (98-107); Estimated Creatinine Clearance 89 ml/min; Glucose 108 mg/dl (70-99); Potassium 3.8 mmol/L (3.5-5.1); Sodium 135 mmol/L (135-145); eGFR > 60.00
[2024-01-16 07:20] VITALS: BP 131/84
--- NOTE | 2024-01-16 07:28 | W.PN.HOSP.TC ---
Addendum entered and electronically signed by Aleta Buchanan MD 01/17/24 12:24:
Underweight
-should improve with treatment infection
-to be monitored outpatient
Original Note:
Today's Communication/Plan
-
advance diet
ID consult
approaching DC
Assessment / Plan
Assessment / Plan
A/P: Patient is a 58y F with PMH significant for asthma and complicated diverticulitis who presents to ED complaining of abdominal pain and nausea.
CT A/P
IMPRESSION:
There is a 5 x 4 cm abscess in the anterior left side of the pelvis in the area of the previous drain, with bubbles of air within it. No free intraperitoneal air.
Extensive diverticulosis.
Bilateral nonobstructing intrarenal calcifications.
No other significant interval change.
Complicated Diverticulitis
Intra-Abdominal Abscess secondary to the above
- Patient with re-accumulation of abscess in same location following drain removal last Friday 01/05, (after seeing Dr. Mock)
- Currently not febrile, toxic-appearing, etc.
- Resumed IV abx
- IVF support, antiemetics, etc.
- s/p IRAD drain replacement; will likely need drain in place until eventual interval sigmoidectomy in 4-6 weeks per CRS
wound cx with Gm Neg bacilli
- ColoRectal Surgery evaluation appreciated.
- Follow for any new / worsening symptoms or complaints.
Now on Levaquin/Flagyl (listed PCN causes seizures); received ceftriaxone last visit
will consult ID to guide abx therapy
Asthma without Acute Exacerbation
- Stable. Continue Singulair.
- Albuterol PRN.
DVT Prophylaxis: Lovenox
Code Status: Full
reviewed situation with Gina ann in room 5/5
Anticipated Discharge: Within 24 hours
Subjective/Interval History
-
Date of Service: January 16, 2024
feeling better and hoping to leave today
no abdominal pain
tolerated FLD
Objective Data
-
Labs:
Laboratory Results
01/16/24
05:49
WBC 6.5
Hgb 11.7 L
Hct 32.9 L
Plt Count 388
Sodium 135
Potassium 3.8
Chloride 107
Carbon Dioxide 23
BUN 9
Creatinine 0.4 L
Glucose 108 H
Calcium 9.2
Vital Signs:
Vital Signs
Temp Pulse Resp BP Pulse Ox
98.5 F 85 18 157/94 96
01/15/24 23:40 01/15/24 23:40 01/15/24 23:40 01/15/24 23:40 01/15/24 23:40
I&O
01/15/24 01/16/24 01/17/24
06:59 06:59 06:59
Intake Total 2190 / 2190 3400 / 3400
Output Total 100 / 100 30 / 30
Balance 2089 / 2089 3370 / 3370
Review of Systems
-
History Source: Patient
All other systems: Reviewed and negative
Physical Exam
-
General: Well Developed and No Apparent Distress; Negative Well Nourished (thin)
HEENT: Normocephalic, Atraumatic and Moist Mucous Membranes
Respiratory: Clear to Auscultation; Negative Wheezes, Rales or Rhonchi
Cardiac: Regular Rhythm and S1/S2
GI: Soft and Tender; Negative Normal Bowel Sounds (diminished)
Musculoskeletal: No Clubbing, No Cyanosis and No Edema
Skin: Warm and Dry
Psych: Calm
Data Reviewed
-
Diagnostic Radiology: Report Reviewed by me
Labs: Labs Reviewed by me
[2024-01-16] MEDS: SINGULAIR 10 MG PO (09:23)
[2024-01-16] MEDS: PROTONIX IV 40 MG IV (09:23)
[2024-01-16] MEDS: FLAGYL 500 MG 100 IV (09:23)
[2024-01-16] MEDS: NSS (PRESERVATIVE FREE) 10 ML IV (09:24)
--- NOTE | 2024-01-16 09:45 | CON.ID ---
Consultation
-
Date/Time Consultation Requested: January 16, 2024 [id number]
Date/Time Consultation Performed: January 16, 2024 [id number]
Requesting Provider: Dr. Aleta Buchanan
Performing Provider: Dr. Funmilayo Zuniga
Reason for Consultation: Abdominal abscess
Chief Complaint / Past History
Chief Complaint
abdominal pain
History of Present Illness
58-year-old female with history of asthma, who was hospitalized early August 2023 with sepsis and large abdominal abscess involving the ovary thought to be due to diverticulitis. She underwent IR drain placement with culture that grew E. coli
and viridans strep. She was seen by infectious disease Dr. Jamil who recommended 4 weeks of IV ceftriaxone and oral metronidazole. Outpatient sinus tract injection showed fistula communicating with the sigmoid colon. January 01, showed abscess
resolved, catheter was exchanged and capped. January 05, the catheter was removed. A week later the patient developed abdominal cramping which did not resolve. She therefore came back to the hospital on January 12. Her white count was 13.7. CAT scan of
the abdomen and pelvis showed a 5 x 4 cm abscess located anterior left pelvis at the previous drain site. January 13, IR placed drain with 30 cc of gross purulent fluid output. Cultures grew polymicrobial organisms. She is currently on levofloxacin
and metronidazole. Patient reports she is feeling better. No fevers or chills at home. No diarrhea. She is planned for colon surgery in about a month.
Past History
Additional Past Medical History:
Asthma
Migraine headache
Endometriosis
Abdominal abscess due to diverticulitis
Cholecystectomy
Allergy History:
Penicillins Allergy (Verified 01/13/24 18:48)
convulsions
Medications Reviewed: Yes
Current Antibiotics:
Levofloxacin
Metronidazole
Social History
Tobacco: Non-Smoker
Alcohol: None
Drug: None
Living: With Family
Family History
Family History: Not Pertinent
Review of Systems
Review of Systems
General: Negative Fever or Chills
HEENT: Negative Headache
Respiratory: Negative Dyspnea or Cough
Gasteroenterology: Negative Nausea or Vomiting
Genital / Urological: Negative Dysuria or Flank Pain
Endocrine: Negative Weakness
Skin / Hair / Nails: Negative Rash
Neurological: Negative Headache or Dizziness
All systems: All other systems were reviewed and were negative
Vital Signs
Temp Pulse Resp BP Pulse Ox
98.3 F 82 12 131/84 95
01/16/24 07:20 01/16/24 07:20 01/16/24 07:20 01/16/24 07:20 01/16/24 07:20
Physical Exam
Physical Exam
Constitutional: No Acute Distress and Comfortable
Eyes: Sclera Anicteric
Cardiovascular: Regular Rate and S1/S2
Pulmonary: Clear
Gastrointestinal: Soft, Non Tender, Non Distended, Normal Bowel Sounds and Other (JESSICA drain with cloudy hendrickson fluid. )
Genito-Urinary: Negative CVA Tenderness
Extremities: Negative Edema
Neurological: AO x 3
Lab / Diagnostic Study Results
01/16/24 05:49
01/16/24 05:49
Abs Immat Gran (auto) 0.0 10^3/uL (0-0.05) 01/16/24 05:49
Absolute Neuts (auto) 3.5 10^3/uL (1.4-6.5) 01/16/24 05:49
Absolute Lymphs (auto) 2.1 10^3/uL (1.2-3.4) 01/16/24 05:49
Absolute Monos (auto) 0.6 10^3/uL (0.1-0.6) 01/16/24 05:49
Absolute Basos (auto) 0.0 10^3/uL (0-0.2) 01/16/24 05:49
Immature Gran % 0.6 % (0-0.5) H 01/16/24 05:49
Neutrophils % 54.3 % (42.2-75.2) 01/16/24 05:49
Lymphocytes % 32.7 % (20.5-51.1) 01/16/24 05:49
Monocytes % 9.0 % (1.7-9.3) 01/16/24 05:49
Eosinophils % 2.8 % (0-6) 01/16/24 05:49
Basophils % 0.6 % (0-2) 01/16/24 05:49
Ur Squamous Epith Cells >30 /LPF (Few) 01/13/24 19:02
Microbiology Results
Micro:
01/14/24 13:13 Wound Culture - Preliminary
Abscess Gram negative bacilli
Enterococcus species
Lactobacillus species
Viridans Streptococcus Group
Gram Stain - Preliminary
01/14/24 08:54 Blood Culture - Preliminary
Blood/Venous No Growth in 48 hours- Final report to follow
01/14/24 04:12 Blood Culture - Preliminary
Blood/Venous No Growth in 48 hours- Final report to follow
01/13/24 19:02 Urine Culture - Final
Urine
01/12/34 CT a/p: There is a 5 x 4 cm abscess in the anterior left side of the pelvis in the area of the previous drain, with bubbles of air within it. No free intraperitoneal air.
Assessment / Plan
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
s/p IR drain placement
Cx: GNR, Enterococcus, Lactobacillus, Viridans strep
For eventual colon resection in the future
- Continue levofloxacin pending identification of GNR.
- Start Unasyn 3g IV q6h. Of note patient states she tolerated amoxicillin in the past.
-DC metronidazole.
- At time of discharge, will transition to po antibiotics.
--- NOTE | 2024-01-16 10:01 | W.PN.CRS1 ---
Documented by User: Paola Arceo PA-C 01/16/24 10:11
Today's Communication / Plan
-
low residue diet
ID consult for antibiotics
okay for d/c from our perspective later today, with drain, if tolerates a diet
Assessment/Plan
-
This is a 58 yo female who has been following with Dr Mock for complicated diverticulitis with abscess. She had IR drainage of the abscess in August with upsizing of drain as an outpatient in September. On January 01, drain study showed resolution of
abscess and the drain was removed in IR. She presents with abdominal pain/nausea worsening over the past few days with CT imaging demonstrated reaccumulation of abscess in the left pelvis with some mild bowel wall thickening of the descending colon.
1. Vitals normal. WBC normalized.
2. MADY drain in place by IR - continue at discharge. Output 10ml, growing gram negative bacilli.
3. Advance diet to low residue.
4. Continue antibiotics. ID has been consulted for outpatient management.
5. Okay for discharge from our standpoint if tolerates low residue. Discussed with patient and daughter. She will keep her appointment with Dr. Mock on January 19. Flush drain daily and keep track of output. Will need eventual surgery, to be
discussed as an outpatient.
Subjective Data
Subjective Data
Date of Service: January 16, 2024
Patient states she feels better. She is hungry. Her pain is controlled. She denies nausea or vomiting.
Objective Data
-
Vital Signs
Temp Pulse Resp BP Pulse Ox
98.3 F 82 12 131/84 95
01/16/24 07:20 01/16/24 07:20 01/16/24 07:20 01/16/24 07:20 01/16/24 07:20
Intake & Output
01/15/24 01/16/24 01/17/24
06:59 06:59 06:59
Intake Total 2190 / 2190 3400 / 3400 10 / 10
Output Total 100 / 100 30 / 30 50 / 50
Balance 2089 3370 / 3370 -40 / -40
Intake:
Oral fluids 690 / 690 780 / 780
IV fluids (Total) 1200 / 1200 0 / 2200
IV piggybacks 300 / 300 400 / 400
Amount instilled into Drain (
Total)
Lower Abdomen Omid-Sanchez
Placed in IR
Output:
Drain Output (Total) 100 / 100 30 / 30 50 / 50
Lower Abdomen Omid-Sanchez 100 / 100 30 / 30 50 / 50
Placed in IR
Other:
Number of approximated MODERATE 2 1
amounts of urine
Lab Results
01/16/24 05:49
01/16/24 05:49
Physical Exam
-
General: No Acute Distress and AOx3
Abdomen: Soft, Non Distended, Non Tender and Other (mady drain in place, rust colored )
Skin: Warm and Dry

Documented by User: Mino Mock MD 01/16/24 10:14
Today's Communication / Plan
-
low residue diet
ID consult for antibiotics
will order pelvic US
okay for d/c from our perspective later today, with drain, if tolerates a diet
Assessment/Plan
-
This is a 58 yo female who has been following with Dr Mock for complicated diverticulitis with abscess. She had IR drainage of the abscess in August with upsizing of drain as an outpatient in September. On January 01, drain study showed resolution of
abscess and the drain was removed in IR. She presents with abdominal pain/nausea worsening over the past few days with CT imaging demonstrated reaccumulation of abscess in the left pelvis with some mild bowel wall thickening of the descending colon.
1. Vitals normal. WBC normalized.
2. MADY drain in place by IR - continue at discharge. Output 10ml, growing gram negative bacilli.
3. Advance diet to low residue.
4. Continue antibiotics. ID has been consulted for outpatient management.
5. Okay for discharge from our standpoint if tolerates low residue. Discussed with patient and daughter. She will keep her appointment with Dr. Mock on January 19. Flush drain daily and keep track of output. Will need eventual surgery, to be
discussed as an outpatient.
6. Will add pelvic U/S to rule out uterine involvement/thickening prior to discharge
[2024-01-16] MEDS: UNASYN IV (12:40)
[2024-01-16] MEDS: TYLENOL 650 MG PO (13:06)
--- NOTE | 2024-01-16 14:39 | CM ---
Reviewed the chart notes and spoke with the patient and her daughter at the bedside. The patient is expecting to be discharged today with intraabdominal drain in-place. The patient has been dealing with a drain since first of year and declined VN
needs. The patient's daughter will provide transportation home. CM continues to be available to patient/family and is monitoring medical plan for needs at discharge.
Plan: Discharge to home today.
[2024-01-16 15:41] VITALS: BP 134/83
--- NOTE | 2024-01-16 16:22 | PTCARENOTE ---
RN in to check on patient and patient asked what time is she going home? RN reviewed the plan of care: no discharge in for today, change in antibiotics, waiting for final cultures. She said, 'I am leaving now. I don't need a doctor to tell me I can
go home. The doctors don't know what they are doing and they don't communicate with each other. No one knows what I have been through. I can take care of myself at home.' RM tried to provide emotional support, but patient threw her pillows, screamed
at RN to shut her mouth and get out of her room. Physician notified.
--- NOTE | 2024-01-16 16:45 | W.DS.TRANS ---
DC Summary - Railroad Conductor
-
Discharge Instructions:
Discharge Diagnosis/Procedures complicated diverticulitis
Diet Low Fiber
Activity As tolerated
Driving Restrictions As prior to admission
Bathing Restrictions None
Wound Care Flush your drain daily with 10ml of sterile
saline. Change the dressing after showering and
as needed.
Instructions: Low Fiber Diet
How to Keep Track of Your Drainage
Stand-Alone Forms:
Changes to Home Medications: Yes
Discharge Medications:
DC Medications w/original date entered in e[employer]ips
pantoprazole 40 mg tablet,delayed release 40 mg PO DAILY 30 days #30 tabs 08/17/23
ibuprofen 400 mg tablet 400 mg PO Q6HPRN PRN mild pain 01/13/24
montelukast 10 mg tablet (Singulair) 10 mg PO DAILY Lung/Breathing Issues 01/13/24
sodium chloride 0.9 % (flush) (Normal Saline Flush 0.9 % injection syringe) 10 ml IV DAILY #300 mL 01/14/24
amoxicillin 875 mg-potassium clavulanate 125 mg tablet 1 tab PO BID #42 tabs 01/16/24
Home Medication Changes
New addition of Augmentin, may need additional antibiotic prescribed after discharge
Flush for JESSICA drain
Pending Results: Yes
Additional Pending Results:
final abscess culture
--- NOTE | 2024-01-16 16:47 | W.DCSUMMARY ---
Discharge Summary
Discharge Data
Date of Admission: 01/14/24
Date of Discharge: 01/16/24
-
Pending Results: Yes
Additional Pending Results:
final culture abscess
Hospital Course
Discharging Physician : Dr. Aleta Buchanan
Disposition : Home
Primary care physician : Dr. Kati Devine
Principal Discharge diagnosis : Complicated Diverticulitis
Hospital Course :
Ms. Clau Shankar is a 58 yo woman with hx asthma and complicated diverticulitis (hospitalized 09/03 s/p IR drain and discharged on IV antibiotics with recent drain removal) who presents to ED complaining of abdominal pain and nausea.
Patient had been followed by CRS with surgery recommended that had not yet been scheduled. Triage vitals stable. Labs with WBC 13.7, HG 14.2, PLT 463, Na 137, K+ 4.1, Glucose 117. CT with 5 x 4 cm abscess in area of prior drain. Patient was
admitted to medicine with CRS consulting. She underwent IR guided drainage and drain placement. Patient's symptoms improved, WBC normalized and she is now advanced to LRD. Abscess Culture showing E. Coli, Enterococcus, and Viridans Strep. ID
consulted. Ideally we wanted to wait for final cultures pre-discharge but patient became very upset and insisted on leaving today. She is discharged on Augmentin twice a day x 3 weeks. If final culture reveals resistant Enterococcus tomorrow will
need to add additional abx. She will follow up with Dr. Mock as outpatient and plan is to schedule surgery.
Time spent on discharge was 35 minutes
Important imaging findings :
CT A/P 01/13/24
IMPRESSION:
There is a 5 x 4 cm abscess in the anterior left side of the pelvis in the area of the previous drain, with bubbles of air within it. No free intraperitoneal air.
Extensive diverticulosis.
Bilateral nonobstructing intrarenal calcifications.
No other significant interval change.
Pelvic US 01/16/24
IMPRESSION:
1. The endometrium is thin and measures 3 mm in thickness.
2. Trace fluid in the endometrial canal.
3. The complex collection in the left anterior pelvis is better seen on previous CT imaging.
Procedure findings :
Discharge Plan
-
Patient Disposition: Home (Routine Discharge)
Discharge Diagnosis/Procedures: complicated diverticulitis
Diet: Low Fiber
Activity: As tolerated
Driving Restrictions: As prior to admission
Bathing Restrictions: None
Wound Care: Flush your drain daily with 10ml of sterile saline. Change the dressing after showering and as needed.
Instructions: Low Fiber Diet, How to Keep Track of Your Drainage
Referrals:
Kati Devine CRNP [Family Provider] - in less than 1 week
Mino Mock MD [Active] - 01/20/24 2:30 pm
Additional Discharge Medication Instructions: Take Augmentin twice a day for 3 weeks per Infectious Disease Recommendations. You will be called tomorrow if you need to start a new antibiotics.
Prescriptions:
New
sodium chloride 0.9 % (flush) [Normal Saline Flush] Syringe
10 ml IV DAILY Qty: 300 0RF
Rx Instructions:
flush drain daily
amoxicillin-pot clavulanate 875-125 mg tablet
1 tab PO BID Qty: 42 0RF
Continued
pantoprazole 40 mg tablet,delayed release (DR/EC)
40 mg PO DAILY 30 Days Qty: 30 0RF
ibuprofen 400 mg Tablet
400 mg PO Q6HPRN PRN (Reason: mild pain)
montelukast [Singulair] 10 mg Tablet
10 mg PO DAILY
Discharge Orders:
Discharge Patient (As Directed); Ordered 01/16/24
Ordered By: Aleta Buchanan
Discharge Date and Time
Print Language: [id number]
--- NOTE | 2024-01-16 17:41 | PTCARENOTE ---
Patient tearful and apologetic towards RN. Discharge instructions reviewed with patient, her daughter is at the bedside. Patient pleasant and cooperative.
--- NOTE | 2024-01-17 10:48 | PN.CDI ---
CDI
- -
CDI:
Physician Documentation Request
Admit Date: 01/14/24 00:46
Dear Doctor Chanel,
Patient admitted for diverticulitis.
Clinical Indicators:
Height: 5' 6'
Weight:123 lbs
BMI:19.9
If possible, please provide an associated diagnosis related to the abnormal BMI, such as:
Underweight
Cachectic
BMI is not significant
Other
BMI < or = to 19.9
Underweight
Weight Loss
Cachectic
Anorexia
Use of terms such as suspected, likely, concern for, or probable (associated with a specific diagnosis that is being evaluated, monitored, or treated as if it exists) are acceptable and can be coded in the inpatient setting, when documented at the
time of discharge.
Thank you,
Madeleine Castorena RN, BSN
CDI Specialist
Available via Mascot text
Please use your independent medical judgment in providing your response.
--- NOTE | 2024-01-17 12:23 | W.PN.UPDATE ---
Update Note
Progress Note Update
called patient and let her know no need for additional antibiotics based on culture results
== END 2024-01-16 17:50 | disposition home or self-care (01) | DRG 391 ==
LOC: 2 NORTH 00:46
PROVIDERS: Emergency Medicine; Internal Medicine; Radiology Vascular & Interventional Radiology; ADMITTING PHYSICIAN Hospitalist; ATTENDING PHYSICIAN Student in an Organized Health Care Education/Training Program; CONSULT PHYSICIAN Surgery; EMERGENCY PHYSICIAN Emergency Medicine; FAMILY PHYSICIAN Nurse Practitioner Family; OTHER PHYSICIAN Internal Medicine Infectious Disease
PROC: 0J9C3ZZ Drainage of Pelvic Region Subcutaneous Tissue and Fascia, Percutaneous Approach (ICD-10-PCS; 2024-01-14)
DX: K57.20 Diverticulitis of large intestine with perforation and abscess without bleeding (principal); K65.1 Peritoneal abscess; Z68.1 Body mass index [BMI] 19.9 or less, adult; J45.909 Unspecified asthma, uncomplicated; R63.6 Underweight
CPT/HCPCS: 88305; 49406; 74177; 76830; 76856; 80048; 80053; 81003; 81015; 85025; 85027; 87040; 87070; 87077; 87086; 87186; 87205; 88112; 96361; 96365; 96367; 96375; 99152; 99285; Q9967

== ENCOUNTER → 2024-01-27 13:02 | Outpatient (REF) | payer OTHER, SELFPAY ==
[2024-01-27 13:49] VITALS: BP 149/79; BP_SYST 95
[2024-01-27 15:51] LABS: % Basophils 0.5 % (0-2); % Eosinophils 0.9 % (0-6); % Immature Granulocytes 0.4 % (0-0.5); % Lymphocytes 14.3 % (20.5-51.1); % Monocytes 7.4 % (1.7-9.3); % Neutrophils 76.5 % (42.2-75.2); Absolute Basophils 0.1 10^3/uL (0-0.2); Absolute Eosinophils 0.1 10^3/uL (0-0.7); Absolute Immature Granulocytes 0.1 10^3/uL (0-0.05); Absolute Lymphocytes 1.8 10^3/uL (1.2-3.4); Absolute Monocytes 0.9 10^3/uL (0.1-0.6); Absolute Neutrophils 9.5 10^3/uL (1.4-6.5); Hematocrit 38.7 % (37.0-47.0); Hemoglobin 13.2 g/dL (12.0-16.0); Mean Corp Hgb Conc. 34.1 g/dL (33.0-37.0); Mean Corpuscular Hgb 30.9 pg (27.0-31.0); Mean Corpuscular Volume 90.6 fL (81.0-99.0); Mean Platelet Volume 8.7 fL (7.4-10.4); Nucleated Red Blood Cells % 0 %; Platelet Count 501 10^3/uL (130-400); Red Blood Cell Count 4.27 10^6/uL (4.20-5.40); White Blood Cell Count 12.4 10^3/uL (4.8-10.8)
== END ==
LOC: RADI 13:02
PROVIDERS: ATTENDING PHYSICIAN Radiology Vascular & Interventional Radiology; FAMILY PHYSICIAN Nurse Practitioner Family; REFERRING PHYSICIAN Surgery
DX: K57.20 Diverticulitis of large intestine with perforation and abscess without bleeding (principal)
CPT/HCPCS: 36415; 49424; 76080; 85025

== ENCOUNTER → 2024-02-01 09:47 | Outpatient (REF) | payer OTHER, SELFPAY ==
[2024-02-01 09:50] VITALS: BP 131/85; BP_SYST 89
[2024-02-01 10:40] VITALS: BP 131/85
== END ==
LOC: RADI 09:47
PROVIDERS: ATTENDING PHYSICIAN Radiology Vascular & Interventional Radiology; FAMILY PHYSICIAN Nurse Practitioner Family
DX: K57.20 Diverticulitis of large intestine with perforation and abscess without bleeding (principal)
CPT/HCPCS: 49423; 75984; C1729; C1769

== ENCOUNTER 2024-02-02 17:14 | Emergency (ER) | payer OTHER, SELFPAY ==
[2024-02-02 17:29] VITALS: BP 120/76
[2024-02-02] MEDS: OMNIPAQUE 50 ML PO (17:46)
[2024-02-02 17:59] LABS: % Basophils 0.8 % (0-2); % Eosinophils 5.2 % (0-6); % Immature Granulocytes 0.4 % (0-0.5); % Lymphocytes 19.3 % (20.5-51.1); % Monocytes 5.7 % (1.7-9.3); % Neutrophils 68.6 % (42.2-75.2); Absolute Basophils 0.1 10^3/uL (0-0.2); Absolute Eosinophils 0.6 10^3/uL (0-0.7); Absolute Immature Granulocytes 0.1 10^3/uL (0-0.05); Absolute Lymphocytes 2.3 10^3/uL (1.2-3.4); Absolute Monocytes 0.7 10^3/uL (0.1-0.6); Absolute Neutrophils 8.1 10^3/uL (1.4-6.5); Hematocrit 37.9 % (37.0-47.0); Hemoglobin 13.5 g/dL (12.0-16.0); Mean Corp Hgb Conc. 35.6 g/dL (33.0-37.0); Mean Corpuscular Hgb 30.7 pg (27.0-31.0); Mean Corpuscular Volume 86.1 fL (81.0-99.0); Mean Platelet Volume 8.4 fL (7.4-10.4); Nucleated Red Blood Cells % 0 %; Platelet Count 468 10^3/uL (130-400); White Blood Cell Count 11.8 10^3/uL (4.8-10.8)
[2024-02-02 18:20] LABS: ALT (SGPT) 14 U/L (0-35); AST (SGOT) 19 U/L (14-36); Albumin 4.4 g/dl (3.5-5.0); Alkaline Phosphatase 91 U/L (38-126); Blood Urea Nitrogen 14 mg/dl (7-17); Calcium 10.6 mg/dl (8.4-10.2); Carbon Dioxide 25 mmol/L (22-30); Chloride 102 mmol/L (98-107); Glucose 101 mg/dl (70-99); Potassium 4.5 mmol/L (3.5-5.1); Sodium 140 mmol/L (135-145); Total Bilirubin 0.4 mg/dl (0.2-1.3); Total Protein 8.3 g/dl (6.3-8.2); eGFR > 60.00
--- NOTE | 2024-02-02 19:45 | ED.GENMED ---
History of Present Illness
General
Chief Complaint: Abdominal Pain
Source: patient
Exam Limitations: none
Time Seen by Provider: 02/02/24 19:33
Travel History
Have you had any contact with someone who has COVID-19?: No
Do you have any symptoms of coronavirus? Fever > 100 degrees, chills, cough, shortness of breath, sore throat, loss of taste or smell, muscle aches, or headache?: No
History of Present Illness
History of Present Illness:
See MDM
Past History
Past History
ED Past Medical History: Asthma, GERD, Hypercholesterolemia and Other ('Angina', migraines, Endometriosis, Deviated septum, )
ED Past Surgical History: Cholecystectomy, (X 2), Tonsilectomy and Other (Tracheostomy with removal)
Social History
Tobacco: Non-smoker
Alcohol: None
Drug: None
Personal: Other (Seperated)
Living: with family
Employment: Employed
Phy Exam
Physical Exam
Physical Exam:
See MDM
Course
Orders/Labs/Results
Orders:
Orders
02/02/24 17:42
Iohexol [Omnipaque] 50 ml .ROUTE .STK-MED ONE
02/02/24 17:45
Iohexol [Omnipaque] See Protocol PO NOW STA
02/02/24 17:52
CMP [Comprehensive Metabolic Panel] Urgent
Complete Blood Count/With Diff Urgent
02/02/24 19:43
Ketorolac [Toradol] 30 mg IV NOW STA
02/02/24 19:44
CT Abd/pel W Iv And Oral Contr Urgent
Comment: JESSICA drain for abscess changed yesterday
Reason For Exam: Abd pain
02/02/24 20:39
Urinalysis Reflex To Culture Urgent
Date Specimen was Collected: 02/02/24
Time Specimen was Collected: 20:27
Urine Microscopic Reflex Cult Urgent
02/02/24 22:12
0.9% Sodium Chloride 1000 ml [Nss] 1,000 ml IV BOLUS
02/02/24 22:21
Acetaminophen [Tylenol] 650 mg PO NOW STA
02/02/24 22:22
Acetaminophen [Tylenol] 650 mg .ROUTE .STK-MED ONE
02/02/24 23:28
LevoFLOXacin [Levaquin] 500 mg PO NOW STA
MetroNIDAZOLE [Flagyl] 500 mg PO NOW STA
Tramadol HCl [Ultram] 25 mg PO ONCE ONE
Abnormal Lab Results
02/02/24 02/02/24
17:52 20:39
WBC 11.8 H 10^3/uL
(4.8-10.8)
Plt Count 468 H 10^3/uL
(130-400)
Abs Immat Gran (auto) 0.1 H 10^3/uL
(0-0.05)
Absolute Neuts (auto) 8.1 H 10^3/uL
(1.4-6.5)
Absolute Monos (auto) 0.7 H 10^3/uL
(0.1-0.6)
Lymphocytes % 19.3 L %
(20.5-51.1)
Glucose 101 H mg/dl
(70-99)
Calcium 10.6 H mg/dl
(8.4-10.2)
Total Protein 8.3 H g/dl
(6.3-8.2)
Leukocyte Esterase Rfl Trace A
(Negative)
Urine Bacteria (Reflex) Few A
(Negative)
02/02/24 17:52
02/02/24 17:52
Vital Signs
Initial and Last Documented VS:
Initial Vital Signs
Temp Pulse Resp BP Pulse Ox
98.3 F 91 16 120/76 97
02/02/24 17:29 02/02/24 17:29 02/02/24 17:29 02/02/24 17:29 02/02/24 17:29
Last Documented Vital Signs
Temp Pulse Resp BP Pulse Ox
97.9 F 79 16 145/80 98
02/02/24 20:16 02/02/24 22:12 02/02/24 17:29 02/02/24 22:12 02/02/24 22:12
MDM/Problems Addressed
Differential Diagnosis Includes:
HPI and MDM Narrative:
58-year-old female presenting with worsening abdominal pain. Over the past few months, she has been dealing with JESSICA drains for diverticular abscess. She is followed by colorectal surgery. Because the drain still had thick purulent discharge, it
was changed yesterday to a larger diameter. Ever since then, patient planing of worsening pain. She denies fevers. She has persistent diarrhea but also states that she is mostly on a liquid diet. She has been compliant with Augmentin
Given her history with the persistent purulent discharge, will obtain CT to assess for JESSICA drain and evaluation of the abscess
Physical exam
General: Weak and fatigued
HEENT: protecting airway
Neck: appears supple
CV: No evidence of cyanosis
Resp: No accessory muscle use
Abd: JESSICA drain site clean and intact. JESSICA drain with purulent brown discharge
Extremities: No deformities
Neuro: alert
Psych: Normal affect
Skin: Intact
Problems Addressed including Acute and Chronic Conditions affecting care:
1. Intra-abdominal abscess
Acuity: acute on chronic
Prognosis: stable
Details: Given the persistent discharge, will obtain CT
Updates
CT shows no new fluid collection. Case discussed with her colorectal surgeon. Will switch Augmentin to Levaquin and Flagyl and he will follow-up in the next week or 2
Differential Diagnosis (but not limited to): Intra-abdominal abscess, diverticulitis, C. difficile
Testing considered: Stool studies if patient is able to provide send
Drug therapy (if applicable): OTC meds, please see d/c instruction regarding Rx drugs
Amount and/or Complexity of Data Reviewed
Clinical info obtained from: Patient
External data reviewed: Recent history of intra-abdominal abscess likely related to diverticulitis. Recent JESSICA drain change yesterday
Labs I independently reviewed (but not limited to): Mild leukocytosis
Radiology: The CT scan was personally and independently reviewed. In addition, official CT report reviewed.
Pulse Ox: not hypoxic
EKG independently reviewed: N/A
Gag Writer: N/A
Critical Care: N/A
Risk of Complication:
Social Determinants of health: Good social support
Discussed with other providers: Colorectal surgery
Escalation of Care includes Admit/Obs: After being observed in the Emergency Department, pt stable for discharge.
Occasional wrong word or 'sound a like' substitutions may have occurred due to the inherent limitations of voice recognition software. Read the chart carefully and recognize, using context, where substitutions have occurred.
*Critical Care Note
Total Time (30-74mins, 75-104mins- exclusive of procedures): Not Applicable
ED Attending Note
-
Portions of this chart may have been created with voice recognition software.� Occasional wrong word or��sound alike� substitutions may have occurred due to the inherent limitations of voice recognition software.
Discharge Plan
Departure
Patient Disposition: Home (Routine Discharge)
Date of Disposition: 02/02/24
Time of Disposition: 23:30
Patient with high blood pressure during this ER visit?: Yes
Discharge Problem:
Intra-abdominal abscess
Prescriptions:
New
metronidazole 500 mg Tablet
500 mg PO TID Qty: 42 0RF
tramadol 50 mg tablet
25 mg PO BID PRN (Reason: pain) Qty: 10 0RF
levofloxacin 500 mg Tablet
500 mg PO DAILY Qty: 14 0RF
No Action
pantoprazole 40 mg tablet,delayed release (DR/EC)
40 mg PO DAILY 30 Days Qty: 30 0RF
ibuprofen 400 mg Tablet
400 mg PO Q6HPRN PRN (Reason: mild pain)
montelukast [Singulair] 10 mg Tablet
10 mg PO DAILY
amoxicillin-pot clavulanate 875-125 mg tablet
1 tab PO BID Qty: 42 0RF
ondansetron HCl [Zofran] 4 mg Tablet
4 mg PO Q6H PRN (Reason: nausea)
Referrals:
Kati Devine CRNP [Family Provider] -
Activity Restrictions/Additional Instructions:
Please return for any worsening symptoms.
You may return at any time if you have further concerns.
Dr. Mock knows you were here today. We are switching your Augmentin to Levaquin and Flagyl instead. He wants you to call the office to set up an appointment in the next week.
Thank you for choosing [facility].
Interventions
Interventions:
*ED COVID-19 Vaccine History Last Done: 02/02/24 17:29
RH-Qgwgpo-Egwjclgogw Assessment Last Done: 02/02/24 23:19
Discharge Date and Time
Print Language: SIERRA LEONEAN
[2024-02-02 20:16] VITALS: BP 139/87
[2024-02-02] MEDS: TORADOL 30 MG IV (20:23)
[2024-02-02 20:25] VITALS: BMI 21.7
[2024-02-02 20:49] LABS: Urine Albumin Negative (Neg - Trace); Urine Bilirubin Negative (Negative); Urine Character Clear (Clear); Urine Color Yellow; Urine Glucose Negative (Negative); Urine Ketone Negative (Negative); Urine Leukocyte Trace (Negative); Urine Nitrite Negative (Negative); Urine Occult Blood Negative (Negative); Urine Specific Gravity 1.015 (<1.030); Urine Urobilinogen Negative (Neg - 1+)
[2024-02-02 21:05] LABS: Urine Red Blood Cell 0-2 /HPF (0-2)
[2024-02-02 21:07] LABS: Urine Bacteria Few (Negative)
[2024-02-02 22:12] VITALS: BP 145/80
[2024-02-02] MEDS: TYLENOL 650 MG PO (22:26)
[2024-02-02] MEDS: NSS 1000 IV (22:26)
[2024-02-02] MEDS: FLAGYL 500 MG PO (23:37)
[2024-02-02] MEDS: ULTRAM 25 MG PO (23:37)
[2024-02-02] MEDS: LEVAQUIN 500 MG PO (23:37)
[2024-02-02 23:47] VITALS: BP 130/78
== END 2024-02-03 00:10 | disposition home or self-care (01) ==
LOC: EMR 17:14
PROVIDERS: Emergency Medicine; EMERGENCY PHYSICIAN Student in an Organized Health Care Education/Training Program; FAMILY PHYSICIAN Nurse Practitioner Family
DX: R10.9 Unspecified abdominal pain (principal); K65.1 Peritoneal abscess; K21.9 Gastro-esophageal reflux disease without esophagitis; E78.00 Pure hypercholesterolemia, unspecified
CPT/HCPCS: 99285; 96374; 96361; 74177; 80053; 81003; 81015; 85025; Q9967

== ENCOUNTER 2024-02-09 13:02 | Emergency (ER) | payer OTHER, SELFPAY ==
[2024-02-09 13:03] VITALS: BP 144/94
[2024-02-09 13:22] LABS: % Basophils 1.2 % (0-2); % Eosinophils 4.3 % (0-6); % Immature Granulocytes 0.5 % (0-0.5); % Lymphocytes 24.8 % (20.5-51.1); % Monocytes 6.9 % (1.7-9.3); % Neutrophils 62.3 % (42.2-75.2); Absolute Basophils 0.1 10^3/uL (0-0.2); Absolute Eosinophils 0.4 10^3/uL (0-0.7); Absolute Lymphocytes 2.1 10^3/uL (1.2-3.4); Absolute Monocytes 0.6 10^3/uL (0.1-0.6); Absolute Neutrophils 5.2 10^3/uL (1.4-6.5); Hematocrit 42.4 % (37.0-47.0); Hemoglobin 14.4 g/dL (12.0-16.0); Mean Corpuscular Hgb 30.3 pg (27.0-31.0); Mean Corpuscular Volume 89.1 fL (81.0-99.0); Mean Platelet Volume 8.5 fL (7.4-10.4); Nucleated Red Blood Cells % 0 %; Platelet Count 427 10^3/uL (130-400); Red Blood Cell Count 4.76 10^6/uL (4.20-5.40); Red Cell Dist. Width 12.3 % (11.5-14.5); White Blood Cell Count 8.4 10^3/uL (4.8-10.8)
[2024-02-09 13:46] LABS: ALT (SGPT) 11 U/L (0-35); AST (SGOT) 18 U/L (14-36); Albumin 4.3 g/dl (3.5-5.0); Alkaline Phosphatase 80 U/L (38-126); Blood Urea Nitrogen 16 mg/dl (7-17); Calcium 10.3 mg/dl (8.4-10.2); Carbon Dioxide 26 mmol/L (22-30); Chloride 100 mmol/L (98-107); Glucose 113 mg/dl (70-99); Lipase 110 U/L (23-300); Potassium 4.9 mmol/L (3.5-5.1); Sodium 138 mmol/L (135-145); Total Bilirubin 0.4 mg/dl (0.2-1.3); Total Protein 8.2 g/dl (6.3-8.2); eGFR > 60.00
--- NOTE | 2024-02-09 15:29 | ED.GENMED ---
History of Present Illness
General
Chief Complaint: Abdominal Symptoms
Source: patient
Exam Limitations: none
Time Seen by Provider: 02/09/24 15:07
Nursing documentation reviewed up to this point in time: agreed with
Travel History
Have you had any contact with someone who has COVID-19?: No
Do you have any symptoms of coronavirus? Fever > 100 degrees, chills, cough, shortness of breath, sore throat, loss of taste or smell, muscle aches, or headache?: No
History of Present Illness
History of Present Illness:
Patient is a 58-year-old female with past medical history of complicated diverticulitis requiring IR drain presents to the ER for evaluation. She presently has a drain for diverticular abscess in place and reports it was not draining for the past 2
days and has been leaking under the bandage for the past 4 days. She also reports cramping for the past 2 to 3 days nausea and decreased appetite. In addition she does have some burning when she urinates and feels some urgency despite urinating
has to urinate again. She denies any fevers. Her temperature today she reports was 96.
She was last seen here last week for abdominal pain. At that time a CAT scan was done which did not show any new fluid collection. Patient's Augmentin was changed to Levaquin and Flagyl which she she has been taking since last week.
She does report she has diarrhea but this is not unchanged.
Past History
Past History
ED Past Medical History: Asthma, GERD, Hypercholesterolemia and Other ('Angina', migraines, Endometriosis, Deviated septum, )
ED Past Surgical History: Cholecystectomy, (X 2), Tonsilectomy and Other (Tracheostomy with removal)
Social History
Tobacco: Non-smoker
Alcohol: None
Drug: None
Personal: Other (Seperated)
Living: with family
Employment: Employed
Review of Systems
Review of Systems
Allergies reviewed?: Yes
All Other Systems: ROS reviewed and negative except as documented in HPI and ROS
Constitutional: Reports fatigue; Denies fever
EENT: Reports no symptoms
Respiratory: Reports no symptoms
Cardiac: Reports no symptoms
ABD/GI: Reports abdominal pain and nausea; Denies vomiting, diarrhea or constipated
: Reports no symptoms
Musculoskeletal: Reports no symptoms
Skin: Reports no symptoms
Neurological: Reports no symptoms
Hematologic/Lymphatic: Reports no symptoms
Psychiatric: Reports no symptoms
Phy Exam
General Physical Exam
General Presentation: no apparent distress
General age: appears stated age
General Skin: warm and dry
General Habitus: normal
General Mental: alert
General Hydration: appears well hydrated
Cardiovascular Exam
Cardiovascular Exam: regular rate/rhythm, no murmur and normal peripheral pulses
Pulmonary Exam
Pulmonary Exam: lungs clear and no respiratory distress
Neurological Exam
Neurological Exam: alert and oriented x3
Musculoskeletal Exam
Musculoskeletal Exam: full ROM
Skin Exam
Skin Exam: normal color and warm/dry
Psychiatric Exam
Psychiatric Exam: normal mood/affect
Course
Orders/Labs/Results
Orders:
Orders
02/09/24 13:13
CMP [Comprehensive Metabolic Panel] Urgent
Complete Blood Count/With Diff Urgent
Lipase Urgent
02/09/24 16:35
UA Reflex to Culture [Urinalysis Reflex To Culture] Urgent
Date Specimen was Collected: 02/09/24
Time Specimen was Collected: 16:34
Urine Microscopic Reflex Cult Urgent
Urine Culture Urgent
CRISPIN Source: U
Specimen Description:
Date Specimen was Collected: 02/09/24
Time Specimen was Collected: 16:34
0.9% Sodium Chloride 1000 ml [Nss] 1,000 ml IV BOLUS
02/09/24 16:36
Ketorolac [Toradol] 15 mg IV NOW STA
02/09/24 18:11
Phenazopyridine HCl [Pyridium] 200 mg PO NOW STA
Abnormal Lab Results
02/09/24 02/09/24
13:13 16:35
Plt Count 427 H 10^3/uL
(130-400)
Glucose 113 H mg/dl
(70-99)
Calcium 10.3 H mg/dl
(8.4-10.2)
Ur Occult Blood Reflex 1+ A
(Negative)
Leukocyte Esterase Rfl 2+ A
(Negative)
Urine RBC 7-10 A /HPF
(0-2)
Urine WBC (Reflex) 30-40 A /HPF
(0-5)
Urine Bacteria (Reflex) Moderate A
(Negative)
02/09/24 13:13
02/09/24 13:13
Vital Signs
Initial and Last Documented VS:
Initial Vital Signs
Temp Pulse Resp BP Pulse Ox
98.3 F 98 16 144/94 99
02/09/24 13:03 02/09/24 13:03 02/09/24 13:03 02/09/24 13:03 02/09/24 13:03
Last Documented Vital Signs
Temp Pulse Resp BP Pulse Ox
98.3 F 98 16 144/94 99
02/09/24 13:03 02/09/24 13:03 02/09/24 13:03 02/09/24 13:03 02/09/24 13:03
MDM/Problems Addressed
MDM/Problems Addressed:
Patient is a 58-year-old female with complicated diverticulitis with abscess currently with drain in place presented to the ER for evaluation. She initially complained of some drainage under the dressing and that her drain was not draining for 2
days but this has since started to drain. She reports her temperature was 96 and she was concerned about infection. She is nauseous and weak. She presents awake alert no acute distress she is afebrile abdomen soft nontender drain in place
draining stool. nml wbc and nml chemistries.
Pt was eval by DR Burrell and stable for d/c home. PT will eventually need colon surgery.
Patient has some mild urinary symptoms despite her being on Levaquin and Flagyl we will still check urine. She also feels little dehydrated and does not feel like she can drink enough water give her a bag of fluids and plan for discharge home.
1808: Urinalysis does show 30-40 white blood cells however patient still has 1 full week of Levaquin left we will hold off on any new antibiotics with culture and give Pyridium for discomfort. Patient also with irritation from dressing of
drainage tube will keep in mind that you want to the eardrum selection has to be done when selection completed you also you will have to let them know that you.
*Pulse Oximetry
Patient hypoxic: no
*Critical Care Note
Total Time (30-74mins, 75-104mins- exclusive of procedures): Not Applicable
Data Reviewed
Review of Other/Old Records Reveals: Labs, Radiology Studies, Operative Reports and Discharge Summary
Patient Management
Discussion with other providers: Supervisor Roving ( DR Burrell )
ED Attending Note
-
Portions of this chart may have been created with voice recognition software.� Occasional wrong word or��sound alike� substitutions may have occurred due to the inherent limitations of voice recognition software.
Discharge Plan
Departure
Patient Disposition: Home (Routine Discharge)
Date of Disposition: 02/09/24
Time of Disposition: 18:11
Patient with high blood pressure during this ER visit?: Yes
Condition: Fair
Discharge Problem:
UTI (urinary tract infection)
Instructions: Urinary Tract Infection, Adult ED, BLOOD PRESSURE
Prescriptions:
New
phenazopyridine [Pyridium] 200 mg tablet
200 mg PO TID PRN (Reason: Pain) Qty: 6 0RF
nystatin 100,000 unit/gram cream
1 applic topical BID Qty: 15 0RF
No Action
pantoprazole 40 mg tablet,delayed release (DR/EC)
40 mg PO DAILY 30 Days Qty: 30 0RF
ibuprofen 400 mg Tablet
400 mg PO Q6HPRN PRN (Reason: mild pain)
montelukast [Singulair] 10 mg Tablet
10 mg PO DAILY
amoxicillin-pot clavulanate 875-125 mg tablet
1 tab PO BID Qty: 42 0RF
ondansetron HCl [Zofran] 4 mg Tablet
4 mg PO Q6H PRN (Reason: nausea)
metronidazole 500 mg Tablet
500 mg PO TID Qty: 42 0RF
tramadol 50 mg tablet
25 mg PO BID PRN (Reason: pain) Qty: 10 0RF
levofloxacin 500 mg Tablet
500 mg PO DAILY Qty: 14 0RF
Referrals:
Akash Burrell MD [Active] -
Kati Devine CRNP [Family Provider] -
Activity Restrictions/Additional Instructions:
As discussed a prescription was sent for Pyridium to take for urinary symptoms. Continue your antibiotics. Stay well-hydrated. Also a prescription for nystatin cream was sent to your pharmacy. Follow-up with your family doctor in extremities
for reevaluation of urinary symptoms at follow-up with Dr. Burrell as discussed. Return if any worsening of symptoms.
Interventions
Interventions:
*Risk Screen - Suicide Last Done: 02/09/24 17:01
*General Assessment Last Done: 02/09/24 17:01
*Neglect/Abuse Screening Last Done: 02/09/24 17:01
*ED COVID-19 Vaccine History Last Done: 02/09/24 17:01
UN-Pxsbej-Kixjodughz Assessment Last Done: 02/09/24 17:01
Discharge Date and Time
Print Language: GIBRALTARIAN
[2024-02-09] MEDS: NSS 1000 IV (16:42)
[2024-02-09 16:52] LABS: Urine Albumin Negative (Neg - Trace); Urine Bilirubin Negative (Negative); Urine Character Clear (Clear); Urine Color Yellow; Urine Glucose Negative (Negative); Urine Ketone Negative (Negative); Urine Leukocyte 2+ (Negative); Urine Nitrite Negative (Negative); Urine Occult Blood 1+ (Negative); Urine Specific Gravity 1.015 (<1.030); Urine Urobilinogen Negative (Neg - 1+)
[2024-02-09 17:03] LABS: Urine Urothelial Cell 0-2 /LPF (FEW)
[2024-02-09 17:04] LABS: Urine White Cell 30-40 /HPF (0-5)
[2024-02-09 17:05] LABS: Urine Bacteria Moderate (Negative)
[2024-02-09] MEDS: TORADOL 15 MG IV (17:21)
[2024-02-09] MEDS: Pyridium 200 MG PO (18:39)
[2024-02-09 18:47] VITALS: BP 128/74
== END 2024-02-09 18:51 | disposition home or self-care (01) ==
LOC: EMR 13:02
PROVIDERS: Nurse Practitioner; Student in an Organized Health Care Education/Training Program; EMERGENCY PHYSICIAN Emergency Medicine; FAMILY PHYSICIAN Nurse Practitioner Family
DX: N39.0 Urinary tract infection, site not specified (principal); R11.0 Nausea; R10.9 Unspecified abdominal pain; R19.7 Diarrhea, unspecified; R03.0 Elevated blood-pressure reading, without diagnosis of hypertension; K57.80 Diverticulitis of intestine, part unspecified, with perforation and abscess without bleeding; K21.9 Gastro-esophageal reflux disease without esophagitis; J45.909 Unspecified asthma, uncomplicated; E78.00 Pure hypercholesterolemia, unspecified; I20.9 Angina pectoris, unspecified; G43.909 Migraine, unspecified, not intractable, without status migrainosus; Z90.49 Acquired absence of other specified parts of digestive tract; Z88.0 Allergy status to penicillin; Z91.041 Radiographic dye allergy status
CPT/HCPCS: 99284; 96374; 96361; 80053; 81003; 81015; 83690; 85025; 87086

== ENCOUNTER → 2024-02-20 14:30 | Outpatient (REF) | payer OTHER, SELFPAY | LOC: HWRAD 14:30 | PROVIDERS: ATTENDING PHYSICIAN Surgery; FAMILY PHYSICIAN Nurse Practitioner Family | DX: K57.20 Diverticulitis of large intestine with perforation and abscess without bleeding (principal) | CPT/HCPCS: 74177; Q9967 ==

== ENCOUNTER 2024-02-26 02:57 | Inpatient (IN) | payer OTHER, SELFPAY ==
[2024-02-25 20:22] VITALS: BP 144/90
[2024-02-25 20:42] LABS: % Eosinophils 4.7 % (0-6); % Immature Granulocytes 0.4 % (0-0.5); % Lymphocytes 23.7 % (20.5-51.1); % Monocytes 7.5 % (1.7-9.3); % Neutrophils 62.7 % (42.2-75.2); Absolute Basophils 0.1 10^3/uL (0-0.2); Absolute Eosinophils 0.4 10^3/uL (0-0.7); Absolute Lymphocytes 1.8 10^3/uL (1.2-3.4); Absolute Monocytes 0.6 10^3/uL (0.1-0.6); Absolute Neutrophils 4.8 10^3/uL (1.4-6.5); Hematocrit 37.6 % (37.0-47.0); Hemoglobin 13.4 g/dL (12.0-16.0); Mean Corp Hgb Conc. 35.6 g/dL (33.0-37.0); Mean Corpuscular Hgb 30.9 pg (27.0-31.0); Mean Corpuscular Volume 86.8 fL (81.0-99.0); Mean Platelet Volume 8.7 fL (7.4-10.4); Nucleated Red Blood Cells % 0 %; Platelet Count 362 10^3/uL (130-400); Red Blood Cell Count 4.33 10^6/uL (4.20-5.40); Red Cell Dist. Width 13.1 % (11.5-14.5); White Blood Cell Count 7.6 10^3/uL (4.8-10.8)
[2024-02-25 20:53] LABS: ALT (SGPT) 18 U/L (0-35); AST (SGOT) 26 U/L (14-36); Albumin 4.6 g/dl (3.5-5.0); Alkaline Phosphatase 78 U/L (38-126); Blood Urea Nitrogen 25 mg/dl (7-17); Calcium 10.9 mg/dl (8.4-10.2); Carbon Dioxide 23 mmol/L (22-30); Chloride 103 mmol/L (98-107); Glucose 100 mg/dl (70-99); Potassium 4.4 mmol/L (3.5-5.1); Sodium 137 mmol/L (135-145); Total Bilirubin 0.8 mg/dl (0.2-1.3); Total Protein 8.6 g/dl (6.3-8.2); eGFR > 60.00
--- NOTE | 2024-02-25 22:22 | ED.GENMED ---
History of Present Illness
General
Chief Complaint: Abdominal Pain
Source: patient, records and family
Exam Limitations: none
Time Seen by Provider: 02/25/24 22:05
Nursing documentation reviewed up to this point in time: agreed with
Travel History
Have you had any contact with someone who has COVID-19?: No
Do you have any symptoms of coronavirus? Fever > 100 degrees, chills, cough, shortness of breath, sore throat, loss of taste or smell, muscle aches, or headache?: No
History of Present Illness
History of Present Illness:
58-year-old female presents emergency department complaining of suprapubic pain, decreased urination, increased drainage from percutaneous drain. She had diverticulitis of her intestine with perforation, and left-sided abdominal pain. She had a CT
scan on 02/20/[address] Mock.
Past History
Past History
ED Past Medical History: Asthma, GERD, Hypercholesterolemia and Other ('Angina', migraines, Endometriosis, Deviated septum, )
ED Past Surgical History: Cholecystectomy, (X 2), Tonsilectomy and Other (Tracheostomy with removal)
Social History
Tobacco: Non-smoker
Alcohol: None
Drug: None
Personal: Other (Seperated)
Living: with family
Employment: Employed
Review of Systems
Review of Systems
Allergies reviewed?: Yes
All Other Systems: Not applicable
Constitutional: Reports no symptoms; Denies fever
EENT: Reports no symptoms
Respiratory: Reports no symptoms
Cardiac: Reports no symptoms
ABD/GI: Reports abdominal pain
: Reports difficulty voiding and other (Decreased urination)
Musculoskeletal: Reports no symptoms
Skin: Reports no symptoms
Neurological: Reports no symptoms
Endocrine: Reports no symptoms
Hematologic/Lymphatic: Reports no symptoms
Psychiatric: Reports no symptoms
Phy Exam
Physical Exam
Physical Exam:
Physical Exam
General: no apparent distress, not acutely ill
Neck: supple. no meningeal signs. normal posterior pharynx
Heart: s1/s2 regular rate and rhythm, no murmur. equal radial
pulses.
HEENT: Pupils equal round reactive to light, EOMI
Lungs: no acute respiratory distress. clear bilaterally
Abdomen: normal bowel sounds. Mild tenderness palpation suprapubic. Percutaneous drain at suprapubic region. No CVAT
Neuro: alert and oriented. no focal neurological deficits cranial nerves II through XII intact
Skin: no rash
Psychiatric: well kept. interactive and cooperative
Extremities: no edema. no calf tenderness. negative homans. good distal pulses
Course
Orders/Labs/Results
Orders:
Orders
02/25/24 20:27
CMP [Comprehensive Metabolic Panel] Urgent
Complete Blood Count/With Diff Urgent
02/25/24 22:20
0.9% Sodium Chloride 1000 ml [Nss] 1,000 ml IV BOLUS
02/25/24 22:21
Bladder Scan- Treatment ONCE
02/25/24 23:58
LevoFLOXacin 500 MG/100 ML [Levaquin] 500 mg in 100 ml IV NOW
MetroNIDAZOLE 500 MG/100 ML [Flagyl 500 mg] 100 ml IV NOW
02/26/24 00:59
Urine Creatinine Urgent
Date Specimen was Collected: 02/26/24
Time Specimen was Collected: 00:54
02/26/24 01:23
Admit/Transfer Patient As Directed
Co-Sign Provider:
Level of Care: Inpatient admission
Assign to:: Medical/Surgical
Physician / Group: Lee
Diagnosis: Colovesicular Fistula
Reason for Hospitalization: Colovesicular Fistula
Expected length of stay greater than two midnights?: Yes
ELOS- Estimated Length of Stay in days: 4
I certify the patient meets the requirements for IP care: Yes
02/26/24 01:24
Code Status As Directed
Resuscitation Status: Full Code
02/26/24 01:29
Dawn Catheter [Catheter- Indwelling] As Directed
Reason for insertion: Acute Retention
Discontinue Date/Time: 02/29/24 0600
02/26/24 01:42
Miconazole Nitrate [Monistat-3 (Miconazole)] 200 mg VAG NOW STA
02/26/24 01:45
HYDROmorphone [Dilaudid] 0.5 mg IV Q4HPRN PRN
02/26/24 03:52
Acetaminophen [Tylenol] 650 mg PO Q4HPRN PRN
Prochlorperazine [Compazine] 5 mg IV Q6HPRN PRN
02/26/24 03:52
ColoRectal Surgery Consult Routine
Consulting Provider: Omkar Ramirez
Was physician already notified: Yes
Reason for consult: Colovesicular fistula
Activity As Directed
Activity Level: Ambulate
With Assistance
Drains As Directed
Type: Omid Sanchez
Location: Lower Abdomen
To suction: Yes: Bulb
I/O [Intake/ Output] As Directed
Frequency: Per unit guidelines
Pneumatic Compression Sleeves As Directed
Type: Knee high
Vital Signs As Directed
Frequency: Per unit guidelines
Oxygen Therapy [O2 Therapy] [RESP] Routine
Titrate/Wean O2 to maintain O2 sat greater than (%): 94
DX Deep Vein Thrombosis Video Routine
02/26/24 06:00
Basic Metabolic Panel IN AM
Complete Blood Count/No Diff IN AM
02/26/24 08:00
Montelukast Sodium [Singulair] 10 mg PO DAILY
Pantoprazole [Protonix IV] 40 mg IV DAILY
02/27/24 00:00
LevoFLOXacin 500 MG/100 ML [Levaquin] 500 mg in 100 ml IV Q24H
MetroNIDAZOLE 500 MG/100 ML [Flagyl 500 mg] 100 ml IV Q8H
02/27/24 Breakfast
Clear Liquid
At Your Request: Limited Participation
Does patient need a safe tray?: No
Abnormal Lab Results
02/25/24
20:27
BUN 25 H mg/dl
(7-17)
Glucose 100 H mg/dl
(70-99)
Calcium 10.9 H mg/dl
(8.4-10.2)
Total Protein 8.6 H g/dl
(6.3-8.2)
02/25/24 20:27
02/25/24 20:27
Vital Signs
Initial and Last Documented VS:
Initial Vital Signs
Temp Pulse Resp BP Pulse Ox
98.1 F 92 24 144/90 96
02/25/24 20:22 02/25/24 20:22 02/25/24 20:22 02/25/24 20:22 02/25/24 20:22
Last Documented Vital Signs
Temp Pulse Resp BP Pulse Ox
98.0 F 86 18 142/82 93
02/26/24 03:04 02/26/24 03:04 02/26/24 03:04 02/26/24 03:04 02/26/24 04:13
MDM/Problems Addressed
Differential Diagnosis Includes:
vesico-colic fistula, abscess
MDM/Problems Addressed:
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 Discussed with colorectal surgery who will evaluate.
Chronic conditions affecting care: Previous abdomnial surgery and Other (Diverticulitis)
Acute Exacerbation and/or Progression of Chronic Illness: Previous abdomnial surgery and Other (Diverticulitis)
*Radiology
Radiology exam reviewed: radiology read reviewed (CT abdomen pelvis 02/20/2024 shows possible vesicocolic fistula, air seen in bladder)
*Pulse Oximetry
Patient hypoxic: no
*EKG
Interpreted by ED Provider?: NA
*Aircraft Line Assembler Interpretation
Rate: Aircraft Line Assembler- N/A
*Critical Care Note
Total Time (30-74mins, 75-104mins- exclusive of procedures): Not Applicable
Data Reviewed
Review of Other/Old Records Reveals: Radiology Studies (CT scan abdomen pelvis shows air in bladder. 02/20/2024, concern for vesicocolic fistula)
Source: records
Patient Management
Social determinants of health affecting care: Strong social support
Discussion with other providers: Hospitalist and Shaft Tender (Colorectal surgery)
Escalation/DeEscalation of care consider admission/obs:
Admit indicated
ED Attending Note
-
Portions of this chart may have been created with voice recognition software.� Occasional wrong word or��sound alike� substitutions may have occurred due to the inherent limitations of voice recognition software.
Discharge Plan
Departure
Patient Disposition: Admit
Date of Disposition: 02/25/24
Time of Disposition: 23:57
Admit to: Med/Surg
Presentation/result/management discussed w/ accepting MD/DO: Hospitalist
Patient with high blood pressure during this ER visit?: Yes
Condition: Fair
Discharge Problem:
Vesico-colic fistula
Interventions
Interventions:
*Risk Screen - Suicide Last Done: 02/25/24 20:22
*General Assessment Last Done: 02/25/24 20:43
*Neglect/Abuse Screening Last Done: 02/25/24 20:22
ED- Fall Risk Assessment Last Done: 02/25/24 20:43
*ED COVID-19 Vaccine History Last Done: 02/25/24 20:43
*Nursing Disposition Last Done: 02/26/24 02:37
NS-Vnyxpr-Vmssumutyf Assessment Last Done: 02/26/24 00:00
Discharge Date and Time
Discharge Date/Time: 02/26/24 02:41
[2024-02-25 22:38] VITALS: BP 136/76
[2024-02-25] MEDS: NSS 1000 IV (22:41)
[2024-02-26] MEDS: LEVAQUIN 100 IV ×2 (00:47→23:10)
[2024-02-26] MEDS: FLAGYL 500 MG 100 IV (00:47)
--- NOTE | 2024-02-26 01:29 | HPS.HSE ---
Family Physician
-
Family Physician: COSMO Lei
Chief Complaint
-
Increased JESSICA drainage
History of Present Illness
Patient is a 58y F with PMH significant for complicated diverticulitis who presents to ED complaining of increased JESSICA output. Patient was admitted in January for recurrent diverticulitis with abscess and had JESSICA drain replaced at that time. She has
been maintained on abx since then on levofloxacin and metronidazole initially - changed to Augmentin on 02/17. Patient noted burning with urination and was seen here in the ED on 02/08. Her meds were not changed as she was already on broad spectrum
abx at that time. Culture results from that visit were ultimately negative. Patient has continued to note burning in the genital region. In addition, she has noted significant increase in drainage from her JESSICA drain.
Patient had a CT scan done on 02/19 which showed changes consistent with colovesicular fistula. Patient notes that she has carie scheduled for surgery in March.
She was advised to present to the ED given CT findings, increased JESSICA output, etc.
Medical History
Past Medical History
Past Medical History: Reports Other
Additional Past Medical History:
Asthma
'Angina'
Migraine Headaches
Endometriosis
Complicated Divrerticulitis
Past Surgical History: Reports Other
Additional Past Surgical History:
T&A
x 2
Tracheostomy (Complication during a )
Cholecystectomy
Multiple Ex-Laps for Endometriosis
Social History
Tobacco: Non-smoker
Alcohol: None
Drug: None
Living: With Family
Family History
Family History: Other (Daughter: Liver Cancer Father: Colon Cancer Mother: Diverticular Disease)
Allergies / Home Medications
Allergies reflects when Allergies were last updated in [employer].
Home Medications with original date entered in [employer]
Allergy/Medication List:
Allergies
Allergy/AdvReac Type Severity Reaction Status Date / Time
Penicillins Allergy convulsions(baby); Verified 02/25/24 20:26
tolerated
amoxicillin
Home Medications
pantoprazole 40 mg tablet,delayed release 40 mg PO DAILY 30 days #30 tabs 08/17/23
ibuprofen 400 mg tablet 400 mg PO Q6HPRN PRN mild pain 01/13/24
montelukast 10 mg tablet (Singulair) 10 mg PO DAILY Lung/Breathing Issues 01/13/24
amoxicillin 875 mg-potassium clavulanate 125 mg tablet 1 tab PO BID #42 tabs 01/16/24
ondansetron HCl 4 mg tablet 4 mg PO Q6H PRN nausea 02/01/24
nystatin 100,000 unit/gram topical cream 1 applic topical BID #15 grams 02/09/24
phenazopyridine 200 mg tablet (Pyridium) 200 mg PO TID PRN Pain #6 tabs 02/09/24
acetaminophen-codeine 02/26/24
Review of Systems
-
History Source: Patient
A 12 point ROS was completed and negative except as noted: Yes
Constitutional: Denies Fever or Chills
Respiratory: Denies Cough or Trouble Breathing
Cardiac: Denies Chest Pain or Palpitations
Abdomen/GI: Reports Other (JESSICA drain with increased output.); Denies Abdominal Pain, Nausea, Vomiting or Diarrhea
: Reports Dysuria and Difficulty Voiding
Musculoskeletal: Denies Joint Pain or Edema
Neurological: Denies Dizzy or Headache
Physical Exam
Vital Signs
Vital Signs
Temp Pulse Resp BP Pulse Ox
98.1 F 91 20 136/76 99
02/25/24 20:22 02/25/24 22:38 02/25/24 22:38 02/25/24 22:38 02/25/24 22:38
Physical Exam
General: Other (58y F in no acute distress.)
HEENT: Moist mucous membranes
Respiratory: Clear; No Wheezes, Rales or Rhonchi
Cardiac: S1/S2 and Regular Rhythm; No Murmur
GI: Soft, Non Distended, Normal Bowel Sounds and Other (Mild suprapubic tenderness. JESSICA drain in place draining large amounts of watery, serosanguinous drainage.)
Musculoskeletal: No Clubbing, No Cyanosis and No Edema
Neuro: AO x 3
Laboratory Results
-
02/25/24 20:
02/25/24 20:
Laboratory Results
Total Bilirubin 0.8 mg/dl (0.2-1.3) 02/25/24 20:
AST 26 U/L (14-36) 02/25/24 20:
ALT 18 U/L (0-35) 02/25/24 20:
Alkaline Phosphatase 78 U/L (38-126) 02/25/24 20:
Impression/Plan
-
A/P: Patient is a 58y F with PMH significant for complicated diverticulitis who presents to ED complaining of increased JESSICA output.
Complicated Diverticulitis
Intra-Abdominal Abscess secondary to the above
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
- Admit for further evaluation and treatment.
- Now with findings c/w colovesicular fistula - by imaging and exam / JESSICA output.
- Currently not febrile, toxic-appearing, etc.
- Resume IV abx for now.
- ColoRectal Surgery evaluation.
- Follow for any new / worsening symptoms or complaints.
Dysuria
- Patient complains of constant burning - not just with urination.
- Given long courses of abx - ? symptoms secondary to yeast infection.
- Trial of miconazole and follow for improvement in symptoms.
Asthma without Acute Exacerbation
- Stable. Continue Singulair.
- Albuterol PRN.
DVT Prophylaxis: SCDs
Code Status: Full
[2024-02-26] MEDS: DILAUDID 0.5 MG IV ×2 (01:48→06:08)
[2024-02-26 01:54] VITALS: BP 132/77
[2024-02-26 03:04] VITALS: BP 142/82; BMI 20.3
--- NOTE | 2024-02-26 04:16 | PTCARENOTE ---
Receive pt from ER. Pt alert oriented X3, in no distress, states that she feels weak to walk from the stretcher to bed. Pt pulled over to her bed. Pt oriented to the room, call carranza within reach. Pt asking for a private room because she needs her
daughter (Gina) to stay with her. Pt has a JESSICA drain in the right lower abd draining urine orange color (Pt taking pyridium). JESSICA drain output up on pt arrival to the [id number]. Pt has a 16F menjivar catheter with small amount of urine and brown
stool. Pt states that she has pain in her lower abd and burning sensation in her vaginal area. Pt states that she had Dilaudid in ER at around 2am and she will hold on taking any more pain med for now. VSS (T=98, HR=86, RR=18, ZA=901/82, SpO2=93% on
RA). Pt resting in her bed, daughter Gina at the bedside. Will continue to monitor the pt.
[2024-02-26] MEDS: DIFLUCAN 150 MG PO (05:54)
[2024-02-26 06:53] LABS: Hematocrit 32.9 % (37.0-47.0); Hemoglobin 11.4 g/dL (12.0-16.0); Mean Corp Hgb Conc. 34.7 g/dL (33.0-37.0); Mean Corpuscular Hgb 30.5 pg (27.0-31.0); Mean Platelet Volume 9.3 fL (7.4-10.4); Platelet Count 312 10^3/uL (130-400); Red Blood Cell Count 3.74 10^6/uL (4.20-5.40); Red Cell Dist. Width 13.1 % (11.5-14.5); White Blood Cell Count 7.5 10^3/uL (4.8-10.8)
[2024-02-26 07:41] LABS: Blood Urea Nitrogen 19 mg/dl (7-17); Calcium 9.7 mg/dl (8.4-10.2); Carbon Dioxide 21 mmol/L (22-30); Chloride 107 mmol/L (98-107); Estimated Creatinine Clearance 78 ml/min; Glucose 97 mg/dl (70-99); Potassium 3.9 mmol/L (3.5-5.1); Sodium 140 mmol/L (135-145); eGFR > 60.00
--- NOTE | 2024-02-26 07:43 | W.PN.HOSP.TC ---
Today's Communication/Plan
-
Continue antibiotics
Antiemetics
Colorectal surgery consult
Assessment / Plan
Assessment / Plan
Gen-AAOx3, moderate distress due to nausea
HEENT-NC, AT, anicteric, clear oral mm
Neck-supple
CV-reg, no M, +S1/S2
Lungs-clear B/L
Abd-soft, NT, ND, dressings intact
Ext-no edema
Musculoskeletal-no cyanosis, clubbing
Skin-warm and dry
Neuro-grossly non-focal
Psych-calm, cooperative
Complicated diverticulitis -with intra-abdominal abscess. Colovesical fistula. Currently on clear liquids. Continue analgesics, antibiotics. Antiemetics.
Colorectal surgery consulted.
Dawn catheter inserted on admission with stool draining into catheter.
Mild intermittent asthma -stable.
Full code
Anticipated Discharge: > 48 hours
Subjective/Interval History
-
Date of Service: February 26, 2024
Patient seen and examined. Complaining of nausea, difficulty emptying bladder.
Objective Data
-
Labs:
Laboratory Results
02/25/24 02/26/24
20:27 05:53
WBC 7.6 7.5
Hgb 13.4 11.4 L
Hct 37.6 32.9 L
Plt Count 362 312
Sodium 137 140
Potassium 4.4 3.9
Chloride 103 107
Carbon Dioxide 23 21 L
BUN 25 H 19 H
Creatinine 0.9 0.7
Glucose 100 H 97
Calcium 10.9 H 9.7
Total Bilirubin 0.8
AST 26
ALT 18
Alkaline Phosphatase 78
Vital Signs:
Vital Signs
Temp Pulse Resp BP Pulse Ox
98.0 F 86 18 142/82 93
02/26/24 03:04 02/26/24 03:04 02/26/24 03:04 02/26/24 03:04 02/26/24 04:13
I&O
02/25/24 02/26/24 02/27/24
06:59 06:59 06:59
Output Total 675 / 675
Balance -675 / -675
Review of Systems
-
History Source: Patient
All other systems: Reviewed and negative
[2024-02-26] MEDS: COMPAZINE 5 MG IV (07:54)
[2024-02-26 07:55] VITALS: BP 125/69
[2024-02-26] MEDS: PROTONIX IV 40 MG IV (07:55)
[2024-02-26] MEDS: SINGULAIR 10 MG PO (07:55)
[2024-02-26] MEDS: NSS (PRESERVATIVE FREE) 10 ML IV (07:56)
--- NOTE | 2024-02-26 11:13 | CON.CRS ---
Addendum entered and electronically signed by Omkar Ramirez MD 02/26/24 12:18:
I saw and examined the patient independently.
The Electrical Designer's note was reviewed and I agree with the note, assessment and plan except where noted below.
Comment: This is a 58-year-old female known to the colorectal service for complicated diverticulitis with her initial episode in August 2023 being managed with an IR drain. She is scheduled to have a partial colectomy in March. In January 2024 her
suprapubic drain was upsized and since that time she has been having worsening abdominal pain. Over the past week the pain has been getting progressively worse and so she presented to our emergency department for further evaluation. Here CT scan
demonstrates what looks like the suprapubic drain is now in the bladder. There are no residual collections. Last night I had the emergency department place of Menjiavr catheter.
Okay for diet
IV antibiotics.
Maintain Menjivar to gravity.
IR consult for IR drain injection study to assess what the drain is communicating with currently.
Will transition care back to the colorectal team tomorrow.
Original Note:
Consultation
-
Date/Time Consultation Requested: 02/26/24351
Requesting Provider: Lee
Medical History
-
Chief Complaint: Abdominal pain
History of Present Illness:
This is a 58 yo female well known to the colorectal service for complicated diverticulitis. Her initial episode was in August of 2023 managed with IR drain at that time. She has been hesitant to pursue surgical intervention for management and
eventually had the drain removed on 01/01. Unfortunately, she had recurrence of abscess and required admission and placement of another drain on 01/13. This drain was exchanged as an outpatient on 01/31 and she notes she has been generally feeling
unwell since that time.
She presented through the ED on 02/08 as she began also noted burning with urination and was treated for a UTI at that time. She denies pneumaturia. She notes that she has persistent abdominal pain and discomfort with urination for which she is
taking Pyridium. She has never had a colonoscopy and although she had one scheduled in December, she cancelled. She saw Dr. Mock in the outpatient setting last on 02/09 and she reported a childhood trauma preventing her from proceeding with colonoscopy
and an outpatient CT colonography was planned instead which has yet to be completed. She was also undergoing outpatient work up for possible colovesical fistula given her recent urinary symptoms with surgery tentatively scheduled for removal of the
affected portion of colon at the end of March. She has been on antibiotics off an on over the past 6 months.
She presents this admission with increasing JESSICA outputs and continue urinary symptoms. She denies nausea and vomiting but notes very poor appetite and that she has not been eating well at home with weight loss. She notes loose stools and is passing
flatus.
Past Medical History
Past Medical History: Asthma, Diverticulitis (complicated by abscess with drain placed in IR 08/14, removed 01/01 with recurrent abscess. New drain placed 01/13 and exchanged on 01/31) and Other (Migraines, endometriosis)
Past Surgical History: Cholecystectomy, (x2), Gynecological (dx lap for endometriosis, tubal ligation), Tonsilectomy and Other (tracheostomy with removal)
Social History
Tobacco: Non-Smoker
Alcohol: None
Living: With Family
Family History
Family History: Early CAD (father in his 40's) and Cancer (colon ca father in his 60's)
Allergies / Home Medications
Allergy/AdvReac Type Severity Reaction Status Date / Time
Penicillins Allergy convulsions(baby); Verified 02/25/24 20:26
tolerated
amoxicillin
�Medication �Instructions �Recorded �Confirmed �Type
pantoprazole 40 mg tablet,delayed 40 mg PO DAILY 30 days #30 tabs 08/17/23 02/26/24 Rx
release
ibuprofen 400 mg tablet 400 mg PO Q6HPRN PRN mild pain 01/13/24 02/26/24 History
montelukast 10 mg tablet 10 mg PO DAILY Lung/Breathing 01/13/24 02/26/24 History
(Singulair) Issues
amoxicillin 875 mg-potassium 1 tab PO BID #42 tabs 01/16/24 02/26/24 Rx
clavulanate 125 mg tablet
ondansetron HCl 4 mg tablet 4 mg PO Q6H PRN nausea 02/01/24 02/26/24 History
nystatin 100,000 unit/gram topical 1 applic topical BID #15 grams 02/09/24 02/26/24 Rx
cream
phenazopyridine 200 mg tablet 200 mg PO TID PRN Pain #6 tabs 02/09/24 02/26/24 Rx
(Pyridium)
acetaminophen-codeine 02/26/24 History
Review of Systems
-
History Source: Patient and Family
All other systems: Negative unless noted
A 10 point review of systems was completed, and was negative except as per HPI.
Physical Exam
Vital Signs
Temp 97.6 F 02/26/24 07:55
Pulse 79 02/26/24 07:55
Resp Rate 16 02/26/24 07:55
Blood pressure 125/69 02/26/24 07:55
SaO2 92 02/26/24 07:55
02/25/24 02/26/24 02/27/24
06:59 06:59 06:59
Actual Weight 56.9 kg
Body Mass Index (BMI) 20.3
Lab Results / Allergies
02/26/24 05:53
02/26/24 05:53
WBC 7.5 10^3/uL (4.8-10.8) 02/26/24 05:53
Hgb 11.4 g/dL (12.0-16.0) L 02/26/24 05:53
Hct 32.9 % (37.0-47.0) L 02/26/24 05:53
Plt Count 312 10^3/uL (130-400) 02/26/24 05:53
Abs Immat Gran (auto) 0.0 10^3/uL (0-0.05) 02/25/24 20:27
Neutrophils % 62.7 % (42.2-75.2) 02/25/24 20:27
Allergy/AdvReac Type Severity Reaction Status Date / Time
Penicillins Allergy convulsions(baby); Verified 02/25/24 20:26
tolerated
amoxicillin
Physical Exam
General: Well Developed and Well Nourished
HEENT: Moist Mucous Membranes
Respiratory: Non Labored Respirations
GI: Soft, Tender (suprapubically/mid abdomen) and Other (IR drain orange with brown sediment)
Genito-urinary: Other (urine orange with brown sediment)
Skin: Warm and Dry
Neuro: Awake, Alert and AO x 3
Psych: Calm
Data Reviewed
-
Radiology: Report Reviewed by me, Discussed with Physician and Discussed with Patient
CT Scan: Image Personally Visualized and interpreted, Report Reviewed by me, Discussed with Physician, Discussed with Nurse, Discussed with Patient and Discussed with Family
Labs: Labs Reviewed by me, Discussed with Physician, Discussed with Nurse, Discussed with Patient and Discussed with Family
Old Records: Reviewed
Assessment / Plan
-
This is a 58 yo female well known to the colorectal service for complicated diverticulitis. Her initial episode was in August of 2023 managed with IR drain at that time; the drain was removed on 01/01. Unfortunately, she had recurrence of abscess
and required admission and placement of another drain on 01/13. This drain was exchanged as an outpatient on 01/31.
She has felt unwell since drain exchange with burning with urination and change to her urine color. She was treated for a UTI in the ED (started on Pyridium) on 02/[address] Mock in the outpatient setting on 02/[address] colonography,
work up for colovesical fistula and eventual surgery tentatively on April 06 for more definitive management. She has been on ABX for most of the past [address] imaging reviewed: Likely colovesical fistula. There is a ? collapsed collection superior to the dome of the bladder. Possibility of IR drain within the urinary bladder.
JESSICA and Menjivar outputs identical (orange with sediment)
Plan:
Consult IR for drain study
Continue menjivar catheter for management of what is likely a colovesical fistula
Will take JESSICA off suction and follow menjivar catheter outputs
Continue antibiotics
Analgesics prn
Clear liquids
[2024-02-26] MEDS: ATIVAN 0.5 MG PO ×2 (13:14→22:07)
[2024-02-26 15:55] VITALS: BP 113/77
[2024-02-26] MEDS: TORADOL 15 MG IV (17:36)
[2024-02-26] MEDS: LOTRIMIN 1% CREAM 1 APPLIC TOPICAL (20:19)
[2024-02-26 23:22] VITALS: BP 124/77
[2024-02-27] MEDS: COMPAZINE 5 MG IV ×3 (01:11→22:51)
[2024-02-27 07:00] LABS: Hematocrit 31.5 % (37.0-47.0); Hemoglobin 11.2 g/dL (12.0-16.0); Mean Corp Hgb Conc. 35.6 g/dL (33.0-37.0); Mean Corpuscular Hgb 30.9 pg (27.0-31.0); Mean Platelet Volume 9.3 fL (7.4-10.4); Platelet Count 295 10^3/uL (130-400); Red Blood Cell Count 3.62 10^6/uL (4.20-5.40); Red Cell Dist. Width 12.7 % (11.5-14.5); White Blood Cell Count 5.8 10^3/uL (4.8-10.8)
[2024-02-27 07:50] LABS: C-Reactive Protein < 5.00 mg/L (0.0-10.00)
[2024-02-27 07:55] VITALS: BP 122/74
[2024-02-27 07:55] LABS: ALT (SGPT) 15 U/L (0-35); AST (SGOT) 24 U/L (14-36); Alkaline Phosphatase 64 U/L (38-126); Blood Urea Nitrogen 17 mg/dl (7-17); Calcium 9.9 mg/dl (8.4-10.2); Carbon Dioxide 24 mmol/L (22-30); Chloride 103 mmol/L (98-107); Estimated Creatinine Clearance 91 ml/min; Glucose 99 mg/dl (70-99); Magnesium 1.9 mg/dl (1.6-2.3); Phosphorus 3.8 mg/dl (2.5-4.5); Potassium 4.1 mmol/L (3.5-5.1); Sodium 136 mmol/L (135-145); Total Bilirubin 0.7 mg/dl (0.2-1.3); Total Protein 7.4 g/dl (6.3-8.2); Triglycerides 288 mg/dl (10-149); eGFR > 60.00
[2024-02-27 08:04] LABS: Prealbumin (Transthyretin) 33.6 mg/dl (17.6-36.0)
[2024-02-27] MEDS: FLAGYL 500 MG 100 IV ×3 (09:00→16:09)
[2024-02-27] MEDS: NSS (PRESERVATIVE FREE) 10 ML IV (09:01)
[2024-02-27] MEDS: LOTRIMIN 1% CREAM 1 APPLIC TOPICAL ×2 (09:01→20:49)
[2024-02-27] MEDS: PROTONIX IV 40 MG IV (09:01)
[2024-02-27] MEDS: TORADOL 15 MG IV ×2 (09:02→17:53)
[2024-02-27] MEDS: SINGULAIR 10 MG PO (09:02)
[2024-02-27] MEDS: FLUSH (NSS) 2 FLUSH IV (09:02)
--- NOTE | 2024-02-27 10:14 | W.PN.CRS1 ---
Today's Communication / Plan
-
IR drain study to assess the location of the drains.
Even if a fistula is present, no immediate surgical intervention is warranted.
Assessment/Plan
-
Complicated sigmoid diverticulitis with an abscess and probable colovesical fistula.
Afebrile, vital signs are stable.
White count is normal and her abdominal exam is benign.
Based on the drainage outputs, it is highly possible she has a colovesical fistula. Her last CT scan was 02/20/2024.
Subjective Data
Subjective Data
Date of Service: February 27, 2024
Still with some suprapubic pain but manageable. She isn't hungry but denies any nausea. She is passing flatus.
Objective Data
-
Vital Signs
Temp Pulse Resp BP Pulse Ox
98.1 F 82 18 122/74 95
02/27/24 07:55 02/27/24 07:55 02/27/24 07:55 02/27/24 07:55 02/27/24 07:55
Intake & Output
02/26/24 02/27/24 02/28/24
06:59 06:59 06:59
Intake Total 1100 / 1100
Output Total 675 / 675 747 / 747
Balance -675 / -675 353 / 353
Intake:
Oral fluids 900 / 900
IV piggybacks 200 / 200
Output:
Drain Output (Total) 675 / 675 172 / 172
Right Lower Abdomen Omid- 210 / 210 172 / 172
Sanchez
Urine, Dawn 0 / 0 575 / 575
Lab Results
02/27/24 06:01
02/27/24 06:02
Physical Exam
-
General: No Acute Distress
Abdomen: Soft, Non Distended, Non Tender and Other (The JESSICA is full of dark brown drainage, and the Dawn has a lot of sediment)
Extremities: No Calf Tenderness
[2024-02-27] MEDS: ATIVAN 0.5 MG PO (13:12)
--- NOTE | 2024-02-27 13:20 | PTCARENOTE ---
Provided report to Verenice in IR. Pt being transported to IR at this time.
--- NOTE | 2024-02-27 13:22 | W.PN.HOSP.TC ---
Today's Communication/Plan
-
see outlined plan
Assessment / Plan
Assessment / Plan
Assessment:
Complicated diverticulitis (abscess) s/p drain placement 08/2023
- s/p drain removal 01/01; patient was hesitant for surgery prior
- recurrence 01/13 with new drain placement; exchanged 01/31
- CT here suggesting of colo-vesicular fistula (bladder with air). Dawn and drain both draining urine, Dawn with stool at times
- IR today for drain study
- continue Levaquin/Flagyl, day 1
- pain control
- diet: clears
Mild intermittent asthma
- stable
DVT ppx: SCDs
Code: Full
Anticipated Discharge: 24 - 48 hours
Subjective/Interval History
-
Date of Service: February 27, 2024
some suprapubic pain otherwise no complaints
for IR drain study today
Objective Data
-
Labs:
Laboratory Results
02/27/24 02/27/24
06:01 06:02
WBC 5.8
Hgb 11.2 L
Hct 31.5 L
Plt Count 295
Sodium 136
Potassium 4.1
Chloride 103
Carbon Dioxide 24
BUN 17
Creatinine 0.6
Glucose 99
Calcium 9.9
Total Bilirubin 0.7
AST 24
ALT 15
Alkaline Phosphatase 64
Vital Signs:
Vital Signs
Temp Pulse Resp BP Pulse Ox
98.1 F 82 18 122/74 95
02/27/24 07:55 02/27/24 07:55 02/27/24 07:55 02/27/24 07:55 02/27/24 09:00
I&O
02/26/24 02/27/24 02/28/24
06:59 06:59 06:59
Intake Total 1100 / 1100
Output Total 675 / 675 747 / 747
Balance -675 / -675 353 / 353
Physical Exam
-
General: No Apparent Distress
HEENT: Normocephalic and Atraumatic
Respiratory: Negative Wheezes or Rales
Cardiac: Regular Rhythm and S1/S2
GI: Soft, Nontender and Other (JESSICA drain in place)
Genito-urinary: No Costovertebral Tender
Neuro: AO x 3
Hematologic / Lymphatic: No Lymphadenopathy
Psych: Calm
Data Reviewed
-
Total Time Spent with Patient (in minutes): 41
CT Scan: Report Reviewed by me
Labs: Labs Reviewed by me
--- NOTE | 2024-02-27 14:19 | PTCARENOTE ---
Provided report to Carlee on . Pt transported via stretcher to [id number] with belongings. Pt's daughter, Gina, with pt.
--- NOTE | 2024-02-27 14:28 | PTCARENOTE ---
Pt arrived to [address] from IR s/p drain study. Pt assisted x1 from stretcher to bed. Pt Dawn draining yellow/orange urine mixed with stool. Pt RLQ JESSICA drain draining orange mixed with stool. Pt states she has no pain at this time. Pt and daughter
oriented to room. Bed locked and in lowest position, call carranza within reach.
[2024-02-27 14:31] VITALS: BP 128/80
--- NOTE | 2024-02-27 14:58 | CM ---
Alert awake oriented patient who lives with her daughters Chana and Veronica.She has extreme anxiety if daughters not present.They live in a 2 story home with with 5 steps to enter and 11 steps to bed/bathroom .She is independent in most activities of
daily living.Spoke with daughter Chana pt off floor. Pt has a right JESSICA drain which she has had and cares for independently. Offered VN daughter declined need.
No adaptive devices
Never had [facility] and [facility] hx for infusion/SNF
Pharmacy [facility]
PCP Dr Devine
PLAN Home declined VN
[2024-02-27 15:20] VITALS: BMI 20.3
[2024-02-27 15:25] VITALS: BP 108/58
[2024-02-27 19:41] LABS: Hepatitis C Antibody Negative (Negative)
[2024-02-27 23:12] VITALS: BP 130/69
[2024-02-28] MEDS: FLAGYL 500 MG 100 IV ×2 (00:08→08:44)
[2024-02-28] MEDS: LEVAQUIN 100 IV (00:54)
[2024-02-28] MEDS: ATIVAN 0.5 MG PO (04:37)
[2024-02-28 06:14] LABS: Hematocrit 32.6 % (37.0-47.0); Hemoglobin 11.3 g/dL (12.0-16.0); Mean Corp Hgb Conc. 34.7 g/dL (33.0-37.0); Mean Corpuscular Volume 89.6 fL (81.0-99.0); Mean Platelet Volume 9.2 fL (7.4-10.4); Platelet Count 293 10^3/uL (130-400); Red Blood Cell Count 3.64 10^6/uL (4.20-5.40); Red Cell Dist. Width 12.9 % (11.5-14.5); White Blood Cell Count 7.1 10^3/uL (4.8-10.8)
--- NOTE | 2024-02-28 06:15 | PTCARENOTE ---
Dawn catheter removed per MD order without incident; patient due to void by 12:15, patient placed on Time & Amount, hat placed in toilet, patient acknowledged understanding of need to measure UOP.
[2024-02-28 06:35] LABS: Blood Urea Nitrogen 18 mg/dl (7-17); Carbon Dioxide 27 mmol/L (22-30); Chloride 101 mmol/L (98-107); Estimated Creatinine Clearance 91 ml/min; Glucose 97 mg/dl (70-99); Potassium 4.1 mmol/L (3.5-5.1); Sodium 138 mmol/L (135-145); eGFR > 60.00
[2024-02-28] MEDS: TORADOL 15 MG IV (06:37)
[2024-02-28 07:35] VITALS: BP 122/68
--- NOTE | 2024-02-28 08:36 | W.PN.CRS1 ---
Today's Communication / Plan
-
Replace Dawn
Appreciate urology, to be seen this afternoon
Assessment/Plan
-
58-year-old female with PMH of asthma, migraines, endometriosis and diverticulitis with abscess s/p IR drains (first placed 08/2023; patient was lost to follow-up for a couple months; drain removal was attempted once but had reaccumulation of
abscess s/p replacement of IR drain; pending elective sigmoidectomy April 06) who presents with change in drain output and pelvic pain;
02/26�drain study with an pelvic abscess, but contrast seen leaking into the bladder confirming CVF
AFVSS
WBC 7.1
� No acute surgical intervention
� Continue clear liquids; once seen by urology and no procedure necessary, okay to advance
� Continue pain control with Tylenol and Toradol
� Continue IV Levaquin and Flagyl
�Start DVT PPx with Lovenox
� Appreciate urology; Dawn needs to be replaced
� OOB/IS
Subjective Data
Subjective Data
Date of Service: February 28, 2024
No overnight events.
Pain has resolved
Denies nausea/vomiting. Feels nauseous after a dose of the antibiotics.
+flatus -BMs
Dawn was inadvertently removed this morning. Patient has not urinated yet.
Pt is OOB.
Objective Data
-
Vital Signs
Temp Pulse Resp BP Pulse Ox
98.3 F 84 18 122/68 96
02/28/24 07:35 02/28/24 07:35 02/28/24 07:35 02/28/24 07:35 02/28/24 07:35
Intake & Output
02/27/24 02/28/24 02/29/24
06:59 06:59 06:59
Intake Total 1100 / 1100 460 / 460 200 / 200
Output Total 747 / 747 470 / 470 450 / 450
Balance 353 / 353 -10 / -10 -250 / -250
Intake:
Oral fluids 900 / 900 360 / 360
IV piggybacks 200 / 200 100 / 100 200 / 200
Output:
Drain Output (Total) 172 / 172 / 70
Right Lower Abdomen Omid- 172 / 172
Sanchez
Urine, Dawn 575 / 575 400 / 400 425 / 425
Lab Results
02/28/24 04:44
02/28/24 04:44
Physical Exam
-
General: No Acute Distress and AOx3
HEENT: Grossly Normal
Abdomen: Soft, Non Distended, Non Tender, No Guarding, No Rebound and Other (IR drain with 95 mL yellowish/brown flecks)
Skin: Warm and Dry
Wound: No Signs of Infection
[2024-02-28] MEDS: LOTRIMIN 1% CREAM 1 APPLIC TOPICAL (08:43)
[2024-02-28] MEDS: SINGULAIR 10 MG PO (08:44)
[2024-02-28] MEDS: PROTONIX IV 40 MG IV (08:44)
[2024-02-28] MEDS: NSS (PRESERVATIVE FREE) 10 ML IV (08:44)
--- NOTE | 2024-02-28 08:58 | PTCARENOTE ---
Dawn catheter ordered to be reinserted this am. Pt refusing at this time. Stated multiple times to RN ' no i dont want that, i want to get out of here, its horrible'. Pts daughter at bedside and encouraging pt to have catheter reinserted. Pt
continuing to refuse. Pt educated on purpose. Dr Harrison notified and advised RN to reinforce that he and urology want the catheter replaced. Pt updated on plan and continuing to refuse. Care remains ongoing.
[2024-02-28] MEDS: TYLENOL 650 MG PO (12:01)
--- NOTE | 2024-02-28 12:07 | W.PN.HOSP.TC ---
Today's Communication/Plan
-
re-evaluate for Dawn placement and possible DC later today
Assessment / Plan
Assessment / Plan
Assessment:
Complicated diverticulitis (abscess) s/p drain placement 08/2023
- s/p drain removal 01/01; patient was hesitant for surgery prior
- recurrence 01/13 with new drain placement; exchanged 01/31
- CT here suggesting of colo-vesicular fistula (bladder with air). Dawn and drain both draining urine, Dawn with stool at times
- IR study confirms colo-vesicular fistula
- Dawn recommended to diversion; patient refusing new placement.
- CRS following, for outpatient surgery
- advanced to LRD
- continue Levaquin/Flagyl, day 10/22
- pain control
Mild intermittent asthma
- stable
DVT ppx: SCDs
Code: Full
Anticipated Discharge: Within 24 hours
Subjective/Interval History
-
Date of Service: February 28, 2024
Dawn removed by nursing last evening; patient refusing a new Dawn today despite knowing risks of UTI and passing of stool through urine
Is interested in discharge to be with autistic daughter
Objective Data
-
Labs:
Laboratory Results
02/28/24
04:44
WBC 7.1
Hgb 11.3 L
Hct 32.6 L
Plt Count 293
Sodium 138
Potassium 4.1
Chloride 101
Carbon Dioxide 27
BUN 18 H
Creatinine 0.6
Glucose 97
Calcium 10.0
Vital Signs:
Vital Signs
Temp Pulse Resp BP Pulse Ox
98.3 F 84 18 122/68 96
02/28/24 07:35 02/28/24 07:35 02/28/24 07:35 02/28/24 07:35 02/28/24 07:35
I&O
02/27/24 02/28/24 02/29/24
06:59 06:59 06:59
Intake Total 1100 / 1100 460 / 460 200 / 200
Output Total 747 / 747 470 / 470 450 / 450
Balance 353 / 353 -10 / -10 -250 / -250
Physical Exam
-
General: No Apparent Distress
HEENT: Normocephalic and Atraumatic
Respiratory: Negative Wheezes
Cardiac: Regular Rhythm and S1/S2
GI: Soft and Other (IR drain)
Neuro: AO x 3
Psych: Calm
Data Reviewed
-
Total Time Spent with Patient (in minutes): 42
Labs: Labs Reviewed by me
--- NOTE | 2024-02-28 12:19 | CM ---
CM reviewed pt with Dr Fountain- possible home later today
Pt noted to have declined VN
Bedside visit with pt and dtr
Declined homecare noting dtr on FMLA and able to assist 04/04
Family will transport home on dc
Discharge Disposition- home no needs- family transport
[2024-02-28 13:22] VITALS: BP 133/80
[2024-02-28 13:25] LABS: Transferrin 225 mg/dL (200-360)
--- NOTE | 2024-02-28 14:40 | W.DS.TRANS ---
DC Summary - Keno Writer
-
Discharge Instructions:
Discharge Diagnosis/Procedures colo-vesicular fistula
Diet Low Residue
Activity As tolerated
Bathing Restrictions None
Instructions:
Stand-Alone Forms:
Changes to Home Medications: No
Discharge Medications:
DC Medications w/original date entered in [facility]
pantoprazole 40 mg tablet,delayed release 40 mg PO DAILY 30 days #30 tabs 08/17/23
ibuprofen 400 mg tablet 400 mg PO Q6HPRN PRN mild pain 01/13/24
montelukast 10 mg tablet (Singulair) 10 mg PO DAILY Lung/Breathing Issues 01/13/24
ondansetron HCl 4 mg tablet 4 mg PO Q6H PRN nausea 02/01/24
nystatin 100,000 unit/gram topical cream 1 applic topical BID #15 grams 02/09/24
phenazopyridine 200 mg tablet (Pyridium) 200 mg PO TID PRN Pain #6 tabs 02/09/24
acetaminophen-codeine Pain 02/26/24
levofloxacin 500 mg tablet 500 mg PO DAILY 14 days #14 tabs 02/28/24
metronidazole 500 mg tablet 500 mg PO Q8H 14 days #42 tabs 02/28/24
Home Medication Changes
Pending Results: No
Total time spent discharging patient (in min): 41
== END 2024-02-28 15:04 | disposition home or self-care (01) | DRG 699 ==
LOC: 2 SOUTH 02:57
PROVIDERS: Emergency Medicine; Registered Nurse; ADMITTING PHYSICIAN Hospitalist; ATTENDING PHYSICIAN Internal Medicine; EMERGENCY PHYSICIAN Emergency Medicine; FAMILY PHYSICIAN Nurse Practitioner Family; OTHER PHYSICIAN Surgery
DX: N32.1 Vesicointestinal fistula (principal); B37.49 Other urogenital candidiasis; K57.20 Diverticulitis of large intestine with perforation and abscess without bleeding; E78.00 Pure hypercholesterolemia, unspecified; K21.9 Gastro-esophageal reflux disease without esophagitis; G43.909 Migraine, unspecified, not intractable, without status migrainosus; I20.9 Angina pectoris, unspecified; J45.20 Mild intermittent asthma, uncomplicated; N80.9 Endometriosis, unspecified; R14.3 Flatulence; Z88.0 Allergy status to penicillin; Z96.89 Presence of other specified functional implants
CPT/HCPCS: 49424; 51702; 51798; 76080; 80048; 80053; 82570; 83735; 84100; 84134; 84466; 84478; 85025; 85027; 86140; 86803; 96361; 96365; 96367; 99285

== ENCOUNTER 2024-05-04 06:01 | Inpatient (IN) | payer OTHER, SELFPAY ==
[2024-03-26 13:55] VITALS: BMI 21.1
[2024-03-26 14:36] LABS: Hematocrit 31.7 % (37.0-47.0); Hemoglobin 11.2 g/dL (12.0-16.0); Mean Corp Hgb Conc. 35.3 g/dL (33.0-37.0); Mean Corpuscular Hgb 32.6 pg (27.0-31.0); Mean Corpuscular Volume 92.2 fL (81.0-99.0); Mean Platelet Volume 9.4 fL (7.4-10.4); Platelet Count 322 10^3/uL (130-400); Red Blood Cell Count 3.44 10^6/uL (4.20-5.40); Red Cell Dist. Width 14.1 % (11.5-14.5); White Blood Cell Count 8.2 10^3/uL (4.8-10.8)
[2024-03-26 14:47] LABS: INR 0.99; PT 12.9 Sec (11.4-14.6)
[2024-03-26 14:48] LABS: APTT 32.2 Sec (23.4-35.0)
[2024-03-26 15:16] LABS: ALT (SGPT) 16 U/L (0-35); AST (SGOT) 26 U/L (14-36); Albumin 4.5 g/dl (3.5-5.0); Alkaline Phosphatase 79 U/L (38-126); Blood Urea Nitrogen 19 mg/dl (7-17); Calcium 10.3 mg/dl (8.4-10.2); Carbon Dioxide 23 mmol/L (22-30); Chloride 104 mmol/L (98-107); Estimated Creatinine Clearance 59 ml/min; Glucose 92 mg/dl (70-99); Potassium 4.2 mmol/L (3.5-5.1); Sodium 139 mmol/L (135-145); Total Protein 7.7 g/dl (6.3-8.2); eGFR > 60.00
[2024-03-27 09:07] LABS: Glycohemoglobin (HgbA1c) 3.7 % (4.0-5.6)
[2024-05-04] VITALS (16 sets, daily range): BP systolic 50–122; BP diastolic 52–78; BMI 21.1
[2024-05-04] MEDS: ENTEREG 12 MG PO (06:53)
[2024-05-04] MEDS: CELEBREX 200 MG PO (06:53)
[2024-05-04] MEDS: LYRICA 150 MG PO (06:53)
[2024-05-04] MEDS: TYLENOL 1000 MG PO ×2 (06:54→20:44)
[2024-05-04] MEDS: HEPARIN 5000 UNITS SC (06:54)
[2024-05-04] MEDS: EMEND 40 MG PO (06:54)
[2024-05-04] MEDS: NORMOSOL-R/PLASMALYTE-A 1000 IV ×2 (06:55→17:11)
--- NOTE | 2024-05-04 15:31 | W.IMMPOSTOP ---
Surgical Immed Post Op Note
-
Primary Surgeon: Mino Mock MD
Assisting Surgeon: TAMIA Fay
Consulting Surgeons: oJse F Alvarez MD; Malcolm Cuenca MD; Butch Gipson MD
Pre-op Diagnosis: chronic diverticulitis, colovesical fistula
Post-op Diagnosis: chronic diverticulitis, vesicocutaneous fistula
Procedure Performed: TAP block by anesthesia, cystoscopy with bilateral ureteral stent placement by urology, robotic sigmoidectomy, extensive lysis of adhesions greater than 2 hours, mesenteric angiography with ICG, flexible sigmoidoscopy; repair of
vesicocutaneous fistula by urology
Anesthesia Type: general
Specimen / Cultures: sigmoid colon
Estimated Blood Loss: 75mL
UOP: 1.25L
IVF: 3.2L
Complications: none
Operative Findings: on cystoscopy, urology identified the IR drain coiled within the bladder; entered at Barron's via veress; adhesions noted from the omentum to the anterior abdominal wall; placed four 8mm ports diagonally and an assist; lysed
adhesions from the omentum to the abdominal wall, pelvic side wall, sigmoid, left anterior uterus and fallopian tube; encountered very dense adhesions between the sigmoid and the left pelvic sidewall and left uterus/fallopian tube; encountered a
colotomy in the sigmoid, but this was within the intended specimen; identified the left ureter with ICG, as well as the left gonal, left iliac artery and vein, all intact and kept safe; performed a medial to lateral mobilization of the sigmoid and
descending colon; mobilized the proximal rectum to 2cm proximal to the anterior reflection; after the sigmoid was entirely mobilized, no abscess or IR drain was encountered, confirming that the course of the drain was extraperitoneal; I divided the
RE with the vessel sealer; Sallie dissected out the anterior dome of the bladder and identified the drain and vesicocutaneous fistula; the drain was removed and discarded, the fistula was divided and the bladder defect (~4mm) was
oversewed; RLQ port was upsized and I transected at the proximal rectum at about 14cm from the anal verge with a 60 mm green load; I mobilized the descending colon up to the splenic flexure, taking down the spleno-colic ligament, but no further; I
divided the mesentry to a point of healthy colon at the distal descending colon; I placed the anvil and divided with a 60mm blue load; made a midline extraction site 4cm in legnth immediately inferior to the umbilicus; I asked Dr. Gipson to
evaluate the left fallopian tube and left ovary as these were swollen and densely adherent to the left pelvic sidewall; he confirmed no damage was done, but they were swollen from the adjacent inflammation; he confirmed they did not need to be
resected; performed a EEA stapled anastomosis, negative leak test, anastomosis intact on flex sig; placed 19Fr drain in the pelvis; hemostasis confirmed; Michaelgordillo to the RLQ port with an 0 vicryl; closed the fascia with a 0 stratafix;
irrigated port sites and closed with 4-0 monocryl and dermabond; excised 3mm margins of skin and subQ tissue at the drain site; right stent removed, left stent and menjivar left in place
--- NOTE | 2024-05-04 16:07 | OR.RPT ---
Operative Report
Operative Report
DATE OF OPERATION: 05/04/2024
SURGEON: Mino Mock MD
PREOPERATIVE DIAGNOSIS: Chronic diverticulitis, colovesical fistula
POSTOPERATIVE DIAGNOSIS: Chronic diverticulitis, vesicocutaneous fistula
OPERATION: Robotic sigmoidectomy, take-down of the splenic flexure, adhesiolysis greater than 2 hr, mesenteric angiography with ICG, flexible sigmoidoscopy; preoperatively, TAP block performed by anesthesia, cystoscopy with bilateral ureteral stent
placement by urology; intraoperatively, repair of vesicocutaneous fistula by urology
ASSISTANTS:
1. TAMIA Fay
CONSULTING SURGEONS:
1. Jose F Alvarez MD, urology
2. Malcolm Cuenca MD, urology
3. Butch Gipson MD, urogyn
ANESTHESIA: General
ESTIMATED BLOOD LOSS: 75 mL
IVF: 3.2 L
URINE OUTPUT: 1.25 L
FINDINGS:
1. On preoperative cystoscopy by Dr. Alvarez, the IR drain was noted to be coiled within the bladder; therefore, upon review of the CTAP, there was unlikely any abscess remaining as the abscess that was identified on CT was actually most likely the
bladder itself
2. Densely adherent, chronically inflamed sigmoid to the omentum, left uterus and fallopian tube, left pelvic sidewall; after complete mobilization of the sigmoid colon, no abscess or IR drain encountered; defect in the mid/lateral sigmoid noted,
most likely iatrogenic during adhesiolysis as opposed to a colonic fistula
3. Dr. Alvarez and Dr. Cuenca dissected in the extraperitoneal space at the dome of the bladder and identified the vesicocutaneous fistula with the IR drain within it; the IR drain was removed and the bladder defect was oversewn
4. Performed an intracorporeal colorectal stapled anastomosis; good perfusion on firefly, negative leak test, direct visualization of anastomosis on flexible sigmoidoscopy without defects or bleeding
5. Dr. Gipson was consulted intraoperatively to evaluate the left uterus and left fallopian tube as these appeared edematous and I was concerned for injury; he confirmed that they were edematous, but no obvious injury identified, so the left
fallopian tube and left ovary were left alone
SPECIMENS:
1. Sigmoid colon
DRAINS: 19 Faroese Sen into the pelvis
COMPLICATIONS: No immediate complications.
INDICATIONS: The patient is a 59-year-old female who initially presented to [place] ED with diverticulitis associated with abscess in August 2023. At that time, an IR�guided drain was placed. Upon subsequent drain studies, there continued to
be a persistent fistula to the colon. The patient was recommended to undergo surgery, but lost to follow-up for a short period. The patient then had multiple admissions to [place] over the following months with issues related to the IR�guided
drain. Specifically, after an exchange of the drain, she had persistent pelvic pain and cramping. Repeat drain studies showed the abscess had resolved, but then a colovesical fistula developed. On the most recent drain study, contrast was seen
going directly into the bladder. Ultimately, the patient agreed to moving forward with surgery. Dr. Alvarez saw the patient preoperatively for possible colovesical fistula and would be available if one was identified. On one of the initial CT
scans, there was noted concern of invasion of the inflammation into the uterus. A pelvic ultrasound was done in the preoperative period, which showed no concerning findings within the uterus, fallopian tubes or ovaries. The operation was discussed
with the patient in detail, including the risks, benefits and alternatives. Risks described included, but not limited to, bleeding, infection, anastomotic leak, damage to nearby structures (i.e.- ureter, bowel, solid organs), incisional hernia, need
for ostomy creation, conversion to open, extensive repair of the bladder, and anesthetic risks. The patient understood and agreed to proceed.
PROCEDURE IN DETAIL: The patient was taken to the operating room and placed on the operating table in supine position. Sequential compression devices were placed bilaterally. General anesthesia was then induced and the patient was intubated without
complication. The patient was then placed in lithotomy position with both arms tucked. The abdomen was then prepped and draped in a sterile fashion. A time-out was then performed verifying the correct patient, procedure, operative site,
positioning, and special equipment. Urology performed a cystoscopy, placed bilateral ureteral stents, injected each ureter with 2.5mL of ICG and placed a Menjivar. On cystoscopy, immediately evident was the IR drain coiled within the bladder. At
this point, I reviewed the last CT scan where an abscess cavity was originally described anterior to the bladder with the IR drain within it. However, with this information, it was clear that this was actually the bladder and not an undrained
abscess cavity. Anesthesia placed an orogastric tube. Preoperative antibiotics were given. A marking pen was used to rashad out the midline.
An 8 mm incision at Barron's point was made with an 11 blade scalpel. A Veress needle was used to gain abdominal access. After 3 clicks, the insufflation was connected to the Veress needle and the opening pressure was noted to be less than 8 mmHg.
The abdomen was then insufflated to a pressure of 12 mmHg. An 8 mm robotic trocar was then inserted. The robotic camera was advanced and intra-abdominal placement was confirmed. The abdomen was examined. No injuries were noted from port entry or
from the Veress needle. No concerning lesions were noted on the surface of the liver or the peritoneum. The omentum was adherent to the lower left anterior abdominal wall as well as to the left lower quadrant. The remaining three 8mm robotic ports
were placed under direct visualization in a diagonal fashion from Barron's point to the right lower quadrant, as well as an 8mm assist port in the right lateral mid abdomen, taking care to avoid injury to the right epigastric vessels. The left
upper quadrant port was changed to the air seal port. The patient was placed in 26 degrees Trendelenburg and 12 degrees [id number]. The robot was docked from the patient's left side. From the RLQ to Barron's point, the instruments introduced
were the scissors, camera, bipolar grasper and small bowel grasper, respectively.
The adhesions between the omentum and the anterior abdominal wall were taken down meticulously with blunt dissection electrocautery, taking care to avoid injury to adjacent bowel. The small bowel was retracted out of the pelvis towards the right
upper quadrant. Dense adhesions were noted between the omentum and the left lower quadrant and sigmoid colon, as well as the left anterior area of the uterus. These were taken down with a combination of blunt dissection and electrocautery with
great difficulty due to the density of the adhesions. Eventually, the omentum was freed from the adhesions and was retracted cephalad above the transverse colon. At the midportion of the sigmoid, which was densely adherent to the left lower
quadrant, a colotomy was noted. On evaluation of the area, however, there did not appear to be any colonic fistula and this was more likely a defect caused by the adhesiolysis. With great difficulty, I was able to dissect to the sigmoid away from
the left side of the uterus and left fallopian tube. I then began to mobilize the sigmoid in a lateral to medial approach. However, the planes were distorted due to the chronic inflammation. I was able to identify the left iliac artery and vein
and left gonadal and keep these safe from my dissection. Using firefly, I was able to identify the left ureter. I switched to a medial to lateral approach, starting by elevating the sigmoid, identifying the RE pedicle, and then scoring the
peritoneum overlying the junction between the retroperitoneum and the mesocolon. I mobilized the mesentery from the retroperitoneum, taking care to avoid injury to the hypogastric nerves. I took this dissection posteriorly to just beyond the
sacral promontory and laterally toward the lateral stalks. I mobilized the RE pedicle posteriorly and entered the appropriate plane between the retroperitoneum and the mesocolon of the sigmoid and descending colon. I connected this to my lateral
dissection. I intermittently checked the location of the left ureter with firefly, ensuring that it was safe from my dissection. I switched back and forth from a medial approach to lateral approach to slowly and meticulously free up the sigmoid
and rectosigmoid from the left pelvic sidewall, taking care to avoid any injury to the left ureter and left pelvic vessels. Finally, the entire sigmoid and rectosigmoid were freed from the pelvic attachments without injury to the left iliac artery
or vein, left gonadal artery, left ureter and left side of the uterus.
I circumferentially dissected the RE about 3-4 cm from its takeoff from the aorta. I divided the RE using the vessel sealer. The RE stump was completely hemostatic. I continued my medial dissection of the mesocolon from the retroperitoneum up
towards the splenic flexure, taking care to avoid injury to the left ureter. At this point, my sigmoid colon was nicely mobilized. I did not encounter any abscess or the IR drain. Therefore, it appeared that the IR drain had taken an
extraperitoneal position. I called Dr. Alvarez to discuss the next best steps. Specifically, I recommended dissecting out the dome of the bladder to identify the tract of the drain and ensure this was identified and no abscess cavity was hidden
extraperitoneally. He agreed and he called his partner, Dr. Cuenca, to assist with this dissection. Dr. Cuenca took over the controls. He will report this portion of the surgery separately. He was able to identify the tract of the drain
leading into the bladder, confirming a vesicocutaneous fistula. The IR drain was removed, the fistula was divided and the bladder defect was oversewn. I took the controls back.
I continued with the rectal mobilization, and freed this up to about 2 to 3 cm superior to the anterior reflection. I performed a flexible sigmoidoscopy and passed up the EEA sizers to ensure adequate mobility to pass up the EEA stapler. On
flexible sigmoidoscopy, there was some residual liquid stool that was irrigated and suctioned. I easily passed up the sizers to the rectosigmoid junction, which was visualized on the laparoscopic monitors. I selected a point about 2 cm distal to
the rectosigmoid junction for my future transection point. The EEA sizers passed up to this point easily, including the large EEA sizer. I got back on the robotic console and started to divide the mesorectum using the vessel sealer at the point
selected for my transection point. The right lower quadrant port was upsized to a 12 mm and I transected the proximal rectum at about 14 cm from the anal verge using the green load of the 60 mm robotic stapler.
With the colon retracted out of the pelvis, I evaluated the pelvis once more for hemostasis and for possible injuries to the surrounding structures. Hemostasis was assured. The left ureter, left gonadal artery, left iliac artery and vein were all
intact without injury. The left aspect of the uterus leading to the left fallopian tube appeared significantly swollen, making it difficult to confirm the normal anatomy. The left ovary appeared to be adherent to the left pelvic sidewall behind
the fallopian tube, also difficult to visualize. Due to my concern for possible injury to the left fallopian tube and left ovary, I consulted Dr. Butch Gipson, who agreed to come evaluate. While awaiting his arrival, I turned my attention to
creating the extraction site. A 4 cm midline incision was created immediately inferior to the umbilicus, in an attempt to both stay below the umbilicus and to stay away from the IR�guided drain site, which was inserted in the suprapubic region just
to the right of midline. The incision was taken down to the level of fascia. Abdominal insufflation remained flowing. The linea alba was scored with the Bovie and preperitoneal fat was encountered, confirming midline. The fascia was then opened to
the extent of the skin incision. Using a Apurva, the peritoneum was exposed and nicked with electrocautery. There was a francisco of air, confirming intraperitoneal entry. The peritoneum was opened to the extent of the skin incision. Hemostasis was
confirmed. A small Remigio with port cap was placed and a robotic 12 mm port was placed through the port cap.
I went back to the robotic console. I evaluated the sigmoid colon and picked a transection site just proximal to the inflamed and thickened colon, which was at the junction of the descending colon and sigmoid colon. I checked the reach from this
point to the pelvis, which was not adequate. I elected to mobilize more of the descending colon and splenic flexure. I retracted the colon towards the right upper quadrant and took down the white line of Toldt. The mesentery was adequately
mobilized from the retroperitoneum from my previous medial dissection. I continued around the splenic flexure, ligating the splenocolic ligament and dividing the omental attachments to the descending colon and splenic flexure, taking care to avoid
injury to the spleen, left kidney or tail of the pancreas. I checked my reach again and my proposed transection point easily reached into the pelvis. I elevated the sigmoid and exposed the specimen side of the RE pedicle. I serially ligated the
mesentery, proximal to the RE pedicle, up to my transection point. I asked anesthesia to inject ICG. Using firefly, the proposed transection point was well-perfused. I checked the rectal stump, which also appeared well-perfused.
At this point, Dr. Gipson arrived to evaluate the uterus, fallopian tubes and ovaries. Based on his assessment, the left fallopian tube was certainly edematous, but appeared uninjured. He identified the left ovary, which also appeared healthy.
Both were affected by the chronic inflammation and adhesions, but did not require resection per Dr. Gipson. Therefore, I elected to leave these alone.
I elected to proceed with an intracorporeal end-to-end stapled anastomosis with EEA stapler. A colotomy in the devascularized segment of sigmoid colon was created using the robotic scissors at a point distal to our proposed proximal transection
point. The anvil with a long Prolene suture attached at the tip was then carefully passed through the colotomy and advanced proximally up the descending colon, with the long Prolene remaining outside of the colon. The colotomy was then closed
around the Prolene stitch using a V-Loc running stitch. The robotic stapler with a blue load was then used to staple and divide the descending colon at our proposed transection point where adequate perfusion was noted on firefly. The specimen was
then placed in the left upper quadrant. The Prolene attached to the anvil was grasped and pulled through the staple line after removing a few phong. I grasped and elevated the anvil and cleaned up the staple line from intervening mesentery and
fat. The anvil was seated along the staple line nicely without intervening diverticula or mesentery.
I checked the reach of the proposed anastomosis once more and it was adequate. The operative field was surveyed and hemostasis was ensured. I performed another flexible sigmoidoscopy of the rectal stump. The pelvis was filled with saline and no
bubbles were noted with insufflation by the sigmoidoscope. Then, sizers were passed up the rectum to ensure adequate circumference and length. The EEA stapler was passed transanally to the distal staple line. The pin was extended through the middle
of the rectal stump staple line and was connected with the anvil. After ensuring there was no twist to the mesentery and there was no tension, the EEA stapler was then closed for 1 minute and then fired. Both donuts were intact. A leak test was
performed by filling the pelvis with saline, occluding the proximal lumen and insufflating with the flexible sigmoidoscope. There was no evidence of leak from the anastomosis. Endoscopically, the anastomosis was intact without evidence of bleeding.
The colorectum was desufflated and the flexible sigmoidoscope removed. A 19 Faroese Sen drain was then passed through the right lateral robotic port and was laid in the pelvic across the anastomosis anteriorly. This was secured to the skin with 2-0
Nylon. The operative field was assessed once more and was hemostatic.
The robotic instruments were removed and the robot was undocked. The right lower quadrant 12mm port was closed with a William-Fernando and an 0-vicryl. The remaining ports were removed under direct visualization and no bleeding was noted. The
midline extraction incision was then closed in layers. The fascia was closed using a #1 Stratafix suture. Due to the possible contamination from the IR-guided drain, I excised the drain site with electrocautery, leaving a 1.5cm wound, which I left
open. The incisions were then irrigated. The incisions were then closed with running subcuticular 4-0 Monocryl and dressed with Dermabond. The drain site was packed with a corner of gauze and covered with silk tape.
At this point, the procedure was complete. The patient was awoken and extubated without complication. The right stent was removed, and the left stent and Menjivar were left in place. All needle, sponge and instrument counts were reported as correct.
The patient tolerated the procedure well and was transferred to the recovery room in stable condition with the menjivar in place.
DICTATED BY: Mino Mock MD
[2024-05-04] MEDS: TORADOL 15 MG IV ×2 (17:08→22:49)
[2024-05-04] MEDS: VENTOLIN NEBULES 2.5 MG INH (17:56)
[2024-05-04] MEDS: ZOFRAN 4 MG IV (18:12)
--- NOTE | 2024-05-04 18:40 | PTCARENOTE ---
Pt received from the PACU via bed. Transport was w/o incident. Pt is drowsy, and easily arousable. Pt with Lap sites to abd well approximated and intact. Luis drain to right abd draining serosanquinous fluid. Abd binder maintained as ordered. Vss, Pt
is afebrile. Dawn cath. intact, draining w/o diff. Pt instructed on plan of care. Pt verbalized understanding of instructions, call carranza is within reach.
[2024-05-04] MEDS: MYCOSTATIN CREAM TOPICAL ×2 (20:44→20:51)
[2024-05-05 00:15] VITALS: BP 102/58
[2024-05-05] MEDS: TYLENOL 1000 MG PO ×3 (02:32→15:16)
[2024-05-05] MEDS: TORADOL 15 MG IV (04:56)
[2024-05-05 06:00] VITALS: BMI 21.4
[2024-05-05 07:02] LABS: Mean Corpuscular Hgb 32.3 pg (27.0-31.0); Mean Corpuscular Volume 96.8 fL (81.0-99.0); Red Blood Cell Count 2.48 10^6/uL (4.20-5.40)
[2024-05-05 07:03] LABS: % Basophils 0.1 % (0-2); % Immature Granulocytes 0.5 % (0-0.5); % Lymphocytes 7.4 % (20.5-51.1); % Monocytes 5.5 % (1.7-9.3); % Neutrophils 86.5 % (42.2-75.2); Absolute Immature Granulocytes 0.1 10^3/uL (0-0.05); Absolute Lymphocytes 1.1 10^3/uL (1.2-3.4); Absolute Monocytes 0.8 10^3/uL (0.1-0.6); Mean Corp Hgb Conc. 33.3 g/dL (33.0-37.0); Mean Platelet Volume 9.2 fL (7.4-10.4); Nucleated Red Blood Cells % 0 %; Platelet Count 286 10^3/uL (130-400)
[2024-05-05 07:29] LABS: Blood Urea Nitrogen 9 mg/dl (7-17); Calcium 8.6 mg/dl (8.4-10.2); Carbon Dioxide 25 mmol/L (22-30); Chloride 103 mmol/L (98-107); Estimated Creatinine Clearance 88 ml/min; Glucose 116 mg/dl (70-99); Magnesium 2.4 mg/dl (1.6-2.3); Sodium 136 mmol/L (135-145); eGFR > 60.00
[2024-05-05 09:02] VITALS: BP 98/53
[2024-05-05] MEDS: INVANZ 60 MG IV (09:05)
[2024-05-05] MEDS: PROTONIX 40 MG PO (09:06)
[2024-05-05] MEDS: ENTEREG 12 MG PO ×2 (09:06→19:38)
[2024-05-05] MEDS: SINGULAIR 10 MG PO (09:06)
[2024-05-05] MEDS: DILAUDID 0.5 MG IV (09:11)
[2024-05-05] MEDS: ZOFRAN 4 MG IV (09:23)
[2024-05-05] MEDS: MYCOSTATIN CREAM TOPICAL ×2 (09:32→19:39)
[2024-05-05 09:38] LABS: Hematocrit 24.5 % (37.0-47.0); Hemoglobin 8.2 g/dL (12.0-16.0)
--- NOTE | 2024-05-05 10:55 | CM ---
Reviewed the chart notes and spoke with the patient and her daughter at the bedside. Patient resides with her three daughters and granddaughter in a two story home with five steps to enter. Only DME is a nebulizer. The patient has had [facility] and
[facility] in past, but no SNF. The patient confirmed her pharmacy of choice is the [facility]. CM continues to be available to patient/family and is monitoring medical plan for needs at discharge.
Plan: Discharge plans will depend on the patient's progress. Home with no needs vs VN.
[2024-05-05 11:43] VITALS: BP 138/68
--- NOTE | 2024-05-05 12:09 | W.PN.CRS1 ---
Today's Communication / Plan
-
Trial of clears
Assessment/Plan
-
59 yo female with recurrent diverticulitis with abscess with IR drain presenting for operative management and now POD #1 robotic sigmoidectomy with cystorrhaphy and removal of misplaced perc pelvic drain
AFVSS
Acute blood loss anemia secondary to expected losses and hemodilution, stable on recheck
Mild leukocytosis, reactive
--Start CLD
--C/W IVF
--C/W entereg
--Continue ABX through 05/08 with Invanz
--SCDs and lovenox 40mg for VTE ppx
--Multimodal analgesics with Tylenol/Toradol and Dilaudid
--OOB/Ambulate
--C/W Dawn for 7-10 days as per urology. Will remove stent later today
Subjective Data
Procedure
05/04/24 Robotic sigmoidectomy with cystorrhaphy
Subjective Data
Date of Service: May 05, 2024
Patient seen and examined at bedside with Dr. Philip. Goldstein n/v. Pain well managed.
Objective Data
-
Vital Signs
Temp Pulse Resp BP Pulse Ox
97.8 F 69 12 98/53 96
05/05/24 09:02 05/05/24 09:02 05/05/24 09:02 05/05/24 09:02 05/05/24 09:02
Intake & Output
05/04/24 05/05/24 05/06/24
06:59 06:59 06:59
Intake Total 1380 / 1380
Output Total 2945 / 2945
Balance -1565 / -1565
Intake:
Oral fluids 480 / 480
IV fluids (Total) 900 / 900
Normosal 300 / 300
Output:
Drain Output (Total) 120 / 120
Right Abdomen Omid-Sanchez 120 / 120
Urine, Dawn 1550 / 1550
Urine, Voided 1275 / 1275
Lab Results
05/05/24 12:00
05/05/24 06:20
Physical Exam
-
General: No Acute Distress
HEENT: Grossly Normal
Abdomen: Soft, Distended (mild) and Tender (mild to incisions)
Skin: Warm, Dry and Pallor
Wound: No Skin Erythema
Incision: Clear, Dry, Intact (dermabond)
[2024-05-05] MEDS: NORMOSOL-R/PLASMALYTE-A 1000 IV (12:43)
[2024-05-05] MEDS: DUONEB 3 ML INH (12:45)
[2024-05-05 15:59] VITALS: BP 120/64
[2024-05-05] MEDS: LOVENOX 40 MG SC (18:01)
--- NOTE | 2024-05-05 19:42 | W.PN.UPDATE ---
Addendum entered and electronically signed by COSMO Paniagua 05/06/24 06:08:
At 6 am Patient stated that Tylenol with codeine is not helping with the pain and she requested Dilaudid to be re ordered.
Original Note:
Update Note
Progress Note Update
Patient requested to D/C Dilaudid as it made her sick and would like to restarting her home dose of Tylenol-Codeine. Meds list adjusted per the patient request.
[2024-05-05] MEDS: TYLENOL #3 1 TABLET PO (21:24)
[2024-05-05] MEDS: TYLENOL PO (21:24)
[2024-05-05] MEDS: ATIVAN 0.5 MG PO (22:13)
[2024-05-05 23:32] VITALS: BP 136/63
[2024-05-06] MEDS: TYLENOL PO (03:00)
--- NOTE | 2024-05-06 03:01 | PTCARENOTE ---
pt ax3 anxious- has pain but does not want Dilaudid- took Tylenol with codeine as she takes from home and ordered by sandwich and drink cart operator- no pt did not get scheduled Tylenol dose so she would not exceed daily allowance of Tylenol
[2024-05-06] MEDS: ZOFRAN 4 MG IV (05:38)
[2024-05-06 06:00] VITALS: BMI 20.9
--- NOTE | 2024-05-06 06:14 | PTCARENOTE ---
pt woke up in pain and was tearful and upset she is experiencing pain- offered her Tylenol with codeine as was changed per her request and she refused and now would like Dilaudid- she feels she shouldn't be in pain. explained she will have some pain
but that we can medicate with her with prn's to help- mobile ui designer switched her back to her original pain regimen ordered by her surgeon and I recommended she stick with the pain regimen recommended by surgeon. she has been pre medicated with zofran to help
alleviate side effects of dilaudid
[2024-05-06] MEDS: DILAUDID 0.25 MG IV (06:38)
[2024-05-06 07:41] VITALS: BP 140/72
[2024-05-06] MEDS: TYLENOL 1000 MG PO ×2 (08:36→19:53)
[2024-05-06] MEDS: PROTONIX 40 MG PO (08:36)
[2024-05-06] MEDS: ENTEREG 12 MG PO ×2 (08:36→19:46)
[2024-05-06] MEDS: INVANZ 60 MG IV (08:36)
[2024-05-06] MEDS: SINGULAIR 10 MG PO (08:36)
[2024-05-06] MEDS: MYCOSTATIN CREAM TOPICAL ×2 (08:40→19:46)
[2024-05-06] MEDS: NORMOSOL-R/PLASMALYTE-A IV (10:13)
[2024-05-06] MEDS: TYLENOL #3 1 TABLET PO (11:05)
[2024-05-06] MEDS: COMPAZINE 10 MG IV (11:11)
--- NOTE | 2024-05-06 11:20 | CM ---
Patient seen at bedside, family member present and patient sleeping. CM will return if further needs for discharge planning needs.
Plan; home with no needs vs home iwth VN
--- NOTE | 2024-05-06 11:23 | W.PN.CRS1 ---
Today's Communication / Plan
-
Pain management
OOB/Ambulate
Assessment/Plan
-
59 yo female with recurrent diverticulitis with abscess with IR drain presenting for operative management and now POD #2 robotic sigmoidectomy with cystorrhaphy and removal of misplaced perc pelvic drain
AFVSS
Labs for today pending
+flatus, but some nausea
All ureteral stents now out
--Continue CLD as tolerated
--C/W IVF
--C/W entereg
--Continue ABX through 05/08 with Invanz
--SCDs and lovenox 40mg for VTE ppx
--Multimodal analgesics. Added tylenol #3 at patient request. Will resume Toradol if labs stable
--Compazine/zofran prn nausea
--OOB/Ambulate. Encouraged activity
--C/W Dawn for 7-10 days as per urology.
Subjective Data
Procedure
05/04/24 Robotic sigmoidectomy with cystorrhaphy
Subjective Data
Date of Service: May 06, 2024
Patient seen and examined at bedside with Dr. Ramirez earlier this morning around 8:45am. Sleepy. Intermittent issues with pain. Has been able to get oob and walk. Denies nausea this am but notified by nursing that patient nauseated later in the
morning. Passing flatus
Objective Data
-
Vital Signs
Temp Pulse Resp BP Pulse Ox
98.3 F 73 14 140/72 96
05/06/24 07:41 05/06/24 07:41 05/06/24 07:41 05/06/24 07:41 05/06/24 07:41
Intake & Output
05/05/24 05/06/24 05/07/24
06:59 06:59 06:59
Intake Total 1380 / 1380 2625 / 2625
Output Total 2945 / 2945 3835 / 3835
Balance -1565 / -1565 -1210 / -1210
Intake:
Oral fluids 480 / 480 1400 / 1400
IV fluids (Total) 900 / 900 1225 / 1225
Normosal 300 / 300
Output:
Drain Output (Total) 120 / 120 85 / 85
Right Abdomen Omid-Asnchez 120 / 120 85 / 85
Urine, Dawn 1550 / 1550 2250 / 2250
Urine, Voided 1275 / 1275 1500 / 1500
Physical Exam
-
General: No Acute Distress
HEENT: Grossly Normal
Abdomen: Soft, Non Distended and Tender (mild to incisions)
Skin: Warm, Dry and Pallor
Wound: No Skin Erythema
Incision: Clear, Dry, Intact (dermabond)
[2024-05-06 11:45] LABS: Blood Urea Nitrogen 6 mg/dl (7-17); Calcium 9.1 mg/dl (8.4-10.2); Carbon Dioxide 28 mmol/L (22-30); Chloride 104 mmol/L (98-107); Estimated Creatinine Clearance 88 ml/min; Glucose 105 mg/dl (70-99); Potassium 3.6 mmol/L (3.5-5.1); Sodium 139 mmol/L (135-145); eGFR > 60.00
[2024-05-06 11:46] LABS: Hematocrit 27.4 % (37.0-47.0); Hemoglobin 9.1 g/dL (12.0-16.0); Mean Corp Hgb Conc. 33.2 g/dL (33.0-37.0); Mean Corpuscular Hgb 33.1 pg (27.0-31.0); Mean Corpuscular Volume 99.6 fL (81.0-99.0); Mean Platelet Volume 9.2 fL (7.4-10.4); Platelet Count 275 10^3/uL (130-400); Red Blood Cell Count 2.75 10^6/uL (4.20-5.40); Red Cell Dist. Width 14.8 % (11.5-14.5); White Blood Cell Count 8.1 10^3/uL (4.8-10.8)
[2024-05-06 15:25] VITALS: BP 146/74
[2024-05-06] MEDS: LOVENOX 40 MG SC (16:52)
[2024-05-06] MEDS: TORADOL 15 MG IV ×2 (16:54→22:32)
[2024-05-06] MEDS: ATIVAN 0.5 MG PO (22:32)
[2024-05-06 23:05] VITALS: BP 141/79
[2024-05-07] MEDS: TORADOL 15 MG IV ×4 (05:25→23:02)
[2024-05-07 07:09] LABS: Hemoglobin 8.8 g/dL (12.0-16.0); Mean Corp Hgb Conc. 33.8 g/dL (33.0-37.0); Mean Corpuscular Hgb 32.2 pg (27.0-31.0); Mean Corpuscular Volume 95.2 fL (81.0-99.0); Mean Platelet Volume 9.1 fL (7.4-10.4); Platelet Count 310 10^3/uL (130-400); Red Blood Cell Count 2.73 10^6/uL (4.20-5.40); Red Cell Dist. Width 14.4 % (11.5-14.5); White Blood Cell Count 6.6 10^3/uL (4.8-10.8)
[2024-05-07 07:16] VITALS: BP 122/70
[2024-05-07 07:33] LABS: Blood Urea Nitrogen 5 mg/dl (7-17); Calcium 9.1 mg/dl (8.4-10.2); Carbon Dioxide 28 mmol/L (22-30); Chloride 103 mmol/L (98-107); Estimated Creatinine Clearance 88 ml/min; Glucose 92 mg/dl (70-99); Potassium 3.1 mmol/L (3.5-5.1); Sodium 140 mmol/L (135-145); eGFR > 60.00
[2024-05-07] MEDS: ENTEREG 12 MG PO ×2 (07:45→19:56)
[2024-05-07] MEDS: PROTONIX 40 MG PO (07:45)
[2024-05-07] MEDS: SINGULAIR 10 MG PO (07:45)
[2024-05-07] MEDS: MYCOSTATIN CREAM 1 APPLIC TOPICAL ×2 (07:45→19:56)
[2024-05-07] MEDS: INVANZ 60 MG IV (07:45)
[2024-05-07] MEDS: KCL 270 MEQ IV (08:34)
--- NOTE | 2024-05-07 10:01 | W.PN.CRS1 ---
Today's Communication / Plan
-
As below
Assessment/Plan
-
59-year-old female with PMH of HLD, GERD, asthma, migraine and chronic diverticulitis with abscess concerning for colovesical fistula, presented for elective surgery
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
AFVSS
WBC 6.6 from 8.1, Hb 8.8 from 9.1, CR 0.5
� Okay for regular diet
� Continue pain control with Toradol, Tylenol 3, Dilaudid as needed; continue Entereg
� Continue home medications
� Continue IV ertapenem for 4 days postoperatively due to significant inflammation
� Continue Dawn for 7 to 10 days per urology
� OOB/IS
� Continue DVT PPx with Lovenox
Dispo�if tolerating regular diet, possible DC tomorrow
Subjective Data
Procedure
05/04/24 Robotic sigmoidectomy with cystorrhaphy
Subjective Data
Date of Service: May 07, 2024
No overnight events. Was significantly fatigued yesterday.
Pain controlled.
Denies nausea/vomiting. Tolerating clear liquid diet.
+flatus +BMs + Dawn
Pt is OOB.
Objective Data
-
Vital Signs
Temp Pulse Resp BP Pulse Ox
98.6 F 86 15 122/70 94
05/07/24 07:16 05/07/24 07:16 05/07/24 07:16 05/07/24 07:16 05/07/24 07:16
Intake & Output
05/06/24 05/07/24 05/08/24
06:59 06:59 06:59
Intake Total 2625 / 2625 1920 / 1920 720 / 720
Output Total 3835 / 3835 1420 / 1420 1580 / 1580
Balance -1210 / -1210 500 / 500 -860 / -860
Intake:
Oral fluids 1400 / 1400 720 / 720 720 / 720
IV fluids (Total) 1225 / 1225 1200 / 1200
Output:
Drain Output (Total) 70 / 70 30 / 30
Right Abdomen Omid-Sanchez 70 / 70 30 / 30
Urine, Dawn 2250 / 2250 1350 / 1350 1550 / 1550
Urine, Voided 1500 / 1500
Lab Results
05/07/24 05:43
05/07/24 05:43
Physical Exam
-
General: No Acute Distress and AOx3
HEENT: Grossly Normal
Abdomen: Soft, Non Distended, Tender (Appropriately tender near incisions) and Other (JESSICA with 100 mL serosanguineous; 1 cm open suprapubic wound associated with prior IR drain, base clean without purulent drainage)
Skin: Warm and Dry
Wound: No Signs of Infection, Dressing in Place (With Dermabond) and No Skin Erythema
[2024-05-07] MEDS: NORMOSOL-R/PLASMALYTE-A IV (14:36)
--- NOTE | 2024-05-07 15:37 | CM ---
Patient to return to home when stable, will follow for any needs that may develop, updated PT/OT notes.
Plan; Home when stable.
[2024-05-07 15:45] VITALS: BP 136/78
[2024-05-07] MEDS: LOVENOX 40 MG SC (17:12)
[2024-05-07] MEDS: ATIVAN 0.5 MG PO (23:03)
[2024-05-07 23:30] VITALS: BP 139/86
[2024-05-08] MEDS: TORADOL 15 MG IV ×2 (04:48→11:02)
[2024-05-08 06:00] VITALS: BMI 20.2
[2024-05-08 06:22] LABS: % Basophils 1.1 % (0-2); % Eosinophils 2.3 % (0-6); % Immature Granulocytes 0.4 % (0-0.5); % Lymphocytes 37.5 % (20.5-51.1); % Monocytes 8.5 % (1.7-9.3); % Neutrophils 50.2 % (42.2-75.2); Absolute Basophils 0.1 10^3/uL (0-0.2); Absolute Eosinophils 0.1 10^3/uL (0-0.7); Absolute Lymphocytes 2.1 10^3/uL (1.2-3.4); Absolute Monocytes 0.5 10^3/uL (0.1-0.6); Absolute Neutrophils 2.8 10^3/uL (1.4-6.5); Hemoglobin 9.6 g/dL (12.0-16.0); Mean Corp Hgb Conc. 34.3 g/dL (33.0-37.0); Mean Corpuscular Volume 96.2 fL (81.0-99.0); Nucleated Red Blood Cells % 0 %; Platelet Count 330 10^3/uL (130-400); Red Blood Cell Count 2.91 10^6/uL (4.20-5.40); White Blood Cell Count 5.6 10^3/uL (4.8-10.8)
[2024-05-08 06:43] LABS: Blood Urea Nitrogen 8 mg/dl (7-17); Calcium 9.4 mg/dl (8.4-10.2); Carbon Dioxide 25 mmol/L (22-30); Chloride 104 mmol/L (98-107); Estimated Creatinine Clearance 85 ml/min; Glucose 101 mg/dl (70-99); Potassium 3.4 mmol/L (3.5-5.1); Sodium 139 mmol/L (135-145); eGFR > 60.00
[2024-05-08 07:00] VITALS: BP 147/79
[2024-05-08] MEDS: KCL 20 MEQ PO (09:09)
[2024-05-08] MEDS: PROTONIX 40 MG PO (09:09)
[2024-05-08] MEDS: MYCOSTATIN CREAM 1 APPLIC TOPICAL (09:09)
[2024-05-08] MEDS: ENTEREG 12 MG PO (09:09)
[2024-05-08] MEDS: INVANZ 60 MG IV (09:09)
[2024-05-08] MEDS: SINGULAIR 10 MG PO (09:09)
[2024-05-08] MEDS: ZOFRAN 4 MG IV (10:26)
--- NOTE | 2024-05-08 10:57 | W.PN.CRS1 ---
Today's Communication / Plan
-
Possible DC later today
Assessment/Plan
-
59-year-old female with PMH of HLD, GERD, asthma, migraine and chronic diverticulitis with abscess concerning for colovesical fistula, presented for elective surgery
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
AFVSS
WBC 5.6, hemoglobin 9.6, creatinine 0.5
�Continue regular diet
� Continue pain control with Toradol, Tylenol 3, Dilaudid as needed; continue Entereg
� Continue home medications
� Continue IV ertapenem for 4 days postoperatively due to significant inflammation (stops today)
� Continue Dawn for 7 to 10 days per urology
� OOB/IS
- Hypokalemia, 3.4, 20meq potassium po given.
� Continue DVT PPx with Lovenox
-Plan was dispo for patient today. All discharge instructions discussed with the patient including medications activity levels and follow-up. All questions addressed. However in between me rounding and writing this note, I was notified by RN that
patient is nauseous. I will continue regular diet and check back up on her in the afternoon to determine if she is ready for DC.
Subjective Data
Procedure
05/04/24 Robotic sigmoidectomy with cystorrhaphy
Subjective Data
Date of Service: May 08, 2024
Patient states she is feeling well today. She is tolerating a diet. She has no nausea or vomiting. She is having bowel function. Her pain is controlled.
Objective Data
-
Vital Signs
Temp Pulse Resp BP Pulse Ox
97.9 F 80 12 147/79 98
05/08/24 07:00 05/08/24 07:00 05/08/24 07:00 05/08/24 07:00 05/08/24 07:00
Intake & Output
05/07/24 05/08/24 05/09/24
06:59 06:59 06:59
Intake Total 1920 / 1920 960 / 960
Output Total 1420 / 1420 2119 / 2119
Balance 500 / 500 -1160 / -1160
Intake:
Oral fluids 720 / 720 960 / 960
IV fluids (Total) 1200 / 1200
Output:
Drain Output (Total) 70 / 70 70 / 70
Right Abdomen Omid-Sanchez 70 / 70 70 / 70
Urine, Dawn 1350 / 1350 2049
Lab Results
05/08/24 05:01
05/08/24 05:01
Physical Exam
-
General: No Acute Distress and AOx3
Abdomen: Soft, Non Distended, Non Tender and Other (JESSICA drain serosanguineous)
Skin: Warm and Dry
Incision: Clear, Dry, Intact
--- NOTE | 2024-05-08 12:54 | W.PN.UPDATE ---
Update Note
Progress Note Update
I spoke to the patient's daughter, her nausea has resolved. She states it happens after the IV antibiotics. She would like to go home. I will discharge her today.
--- NOTE | 2024-05-08 13:02 | W.DS.TRANS ---
DC Summary - Behavioral Scientist
-
Discharge Instructions:
Sleep Apnea Risk Low
Discharge Diagnosis/Procedures TAP block by anesthesia, cystoscopy with
bilateral ureteral stent placement by urology,
robotic sigmoidectomy, extensive lysis of
adhesions greater than 2 hours, mesenteric
angiography with ICG, flexible sigmoidoscopy;
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
Diet Regular
Activity No strenuous activity
Additional Activity No lifting over 10lbs (gallon of milk)
Driving Restrictions No driving for 1 week
Bathing Restrictions OK to Shower
Wound Care Cover drain incisions with gauze and paper tape.
Okay to leave open to air when they seal.
Change daily. Okay to leave open to shower.
Allow surgical glue to naturally fall off.
Instructions: How to Care for Your Dawn Catheter
Stand-Alone Forms:
Changes to Home Medications: Yes
Discharge Medications:
DC Medications w/original date entered in [facility]
pantoprazole 40 mg tablet,delayed release 40 mg PO DAILY 30 days #30 tabs 08/17/23
ibuprofen 400 mg tablet 400 mg PO Q6HPRN PRN mild pain 01/13/24
montelukast 10 mg tablet (Singulair) 10 mg PO DAILY Lung/Breathing Issues 01/13/24
ondansetron HCl 4 mg tablet 4 mg PO Q6H PRN nausea 02/01/24
nystatin 100,000 unit/gram topical cream 1 applic topical BID #15 grams 02/09/24
phenazopyridine 200 mg tablet (Pyridium) 200 mg PO TID PRN Pain #6 tabs 02/09/24
cannabidiol 100 mg/mL oral solution 1 mg PO PRN PRN anxiety 03/29/24
melatonin 1 mg tablet 1 mg PO HS PRN insomnia 03/29/24
lorazepam 1 mg tablet (Ativan) 1 mg PO TID PRN anxiety 05/04/24
acetaminophen 300 mg-codeine 30 mg tablet 1 tab PO PRN Pain 14 days #20 tabs 05/08/24
Home Medication Changes
acetaminophen 300 mg-codeine 30 mg tablet 1 tab PO PRN Pain 14 days #20 tabs 05/08/24
Pending Results: Yes
Additional Pending Results:
OR pathology
[2024-05-08 13:47] VITALS: BP 134/76
--- NOTE | 2024-05-29 11:49 | W.DCSUMMARY ---
Discharge Summary
Discharge Data
Date of Admission: 05/08/24
Date of Discharge: 05/29/24
-
Pending Results: Yes
Additional Pending Results:
OR pathology
Hospital Course
Patient presented for an elective robotic sigmoidectomy due to chronic diverticulitis and a vesicocutaneous fistula. This was performed by Dr. Mino Mock on 05/04/2024. She tolerated the procedure well and was brought to the medical surgical
floor. Postoperatively she was kept on Invanz for 4 days due to significant inflammation. The following day she was out of bed. Her ureteral stent was removed at bedside. She was started on a clear liquid diet. She had a Dawn that was placed
intraoperatively and it was kept in place per urology until he saw her as an outpatient in 7 to 10 days. Her diet was slowly advanced to a low residue diet. On postop day 4 it was determined the patient could be discharged to home. The Dawn was
in place on her discharge and she was to follow-up with urology as an outpatient. All discharge instructions were discussed with the patient and family including medication activity levels and follow-up. All questions were answered. Follow-up in
the office with Dr. Mock in 2 weeks.
Discharge Plan
-
Patient Disposition: Home (Routine Discharge)
Discharge Diagnosis/Procedures: TAP block by anesthesia, cystoscopy with bilateral ureteral stent placement by urology, robotic sigmoidectomy, extensive lysis of adhesions greater than 2 hours, mesenteric angiography with ICG, flexible
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
Diet: Regular
Activity: No strenuous activity
Additional Activity: No lifting over 10lbs (gallon of milk)
Driving Restrictions: No driving for 1 week
Bathing Restrictions: OK to Shower
Wound Care: Cover drain incisions with gauze and paper tape. Okay to leave open to air when they seal. Change daily. Okay to leave open to shower.
Allow surgical glue to naturally fall off.
Instructions: How to Care for Your Dawn Catheter
Referrals:
Malcolm Cuenca MD [Active] - in one week
Kati Devine CRNP [Family Provider] - in one week
Mino Mock MD [Active] - in two weeks
Additional Discharge Medication Instructions: Tylenol or Ibuprofen as needed for pain. Maximum dose of Tylenol is 4,000mg/24 hours. Maximum dose of Ibuprofen is 3,200mg/24 hours.
Prescriptions:
Continued
pantoprazole 40 mg tablet,delayed release (DR/EC)
40 mg PO DAILY 30 Days Qty: 30 0RF
ibuprofen 400 mg Tablet
400 mg PO Q6HPRN PRN (Reason: mild pain)
montelukast [Singulair] 10 mg Tablet
10 mg PO DAILY
ondansetron HCl 4 mg Tablet
4 mg PO Q6H PRN (Reason: nausea)
phenazopyridine [Pyridium] 200 mg tablet
200 mg PO TID PRN (Reason: Pain) Qty: 6 0RF
nystatin 100,000 unit/gram cream
1 applic topical BID Qty: 15 0RF
Rx Instructions:
lower abdomen
melatonin 1 mg Tablet
1 mg PO HS PRN (Reason: insomnia)
cannabidiol 100 mg/mL Solution
1 mg PO PRN PRN (Reason: anxiety)
lorazepam [Ativan] 1 mg Tablet
1 mg PO TID PRN (Reason: anxiety)
Changed
acetaminophen-codeine 300-30 mg tablet
1 tab PO PRN 14 Days Qty: 20 0RF
Rx Instructions:
Last filled 04/21/24 #25 x7 days supply
Discontinued
metronidazole 500 mg Tablet
1 mg PO DIRECTED
Patient Comments:
took at 1400, 1500 and 2200 on 05/03/24
neomycin 500 mg Tablet
1 mg PO DIRECTED
Patient Comments:
took at 1400,1500, and 2200 on 05/03/24
Sutab 1.479-0.188- 0.225 gram Tablet
1 tab PO DIRECTED
Discharge Orders:
Discharge Patient (As Directed); Ordered 05/08/24
Ordered By: Paola Arceo
Discharge Date and Time
Discharge Date/Time: 05/08/24 14:10
Print Language: BELARUSIAN
== END 2024-05-08 14:10 | disposition home or self-care (01) | DRG 330 ==
LOC: 2 SOUTH 06:01
PROVIDERS: Physician Assistant; Registered Nurse; Specialist; Surgery; ADMITTING PHYSICIAN Surgery; FAMILY PHYSICIAN Nurse Practitioner Family
PROC: 0TQB4ZZ Repair Bladder, Percutaneous Endoscopic Approach (ICD-10-PCS; 2024-05-04)
PROC: 0TH98YZ Insertion of Other Device into Ureter, Via Natural or Artificial Opening Endoscopic (ICD-10-PCS; 2024-05-04)
PROC: 0DJD8ZZ Inspection of Lower Intestinal Tract, Via Natural or Artificial Opening Endoscopic (ICD-10-PCS; 2024-05-04)
PROC: 0DTN4ZZ Resection of Sigmoid Colon, Percutaneous Endoscopic Approach (ICD-10-PCS; 2024-05-04)
PROC: 4A1BXSH Monitoring of Gastrointestinal Vascular Perfusion using Indocyanine Green Dye, External Approach (ICD-10-PCS; 2024-05-04)
PROC: 0DNU4ZZ Release Omentum, Percutaneous Endoscopic Approach (ICD-10-PCS; 2024-05-04)
PROC: 8E0W4CZ Robotic Assisted Procedure of Trunk Region, Percutaneous Endoscopic Approach (ICD-10-PCS; 2024-05-04)
PROC: 0TP Urinary System, Removal (ICD-10-PCS; 2024-05-04)
DX: K57.30 Diverticulosis of large intestine without perforation or abscess without bleeding (principal); D62 Acute posthemorrhagic anemia; N32.1 Vesicointestinal fistula; T85.628A Displacement of other specified internal prosthetic devices, implants and grafts, initial encounter; S37.20XA Unspecified injury of bladder, initial encounter; K66.0 Peritoneal adhesions (postprocedural) (postinfection); E78.5 Hyperlipidemia, unspecified; J45.909 Unspecified asthma, uncomplicated; K21.9 Gastro-esophageal reflux disease without esophagitis; G43.909 Migraine, unspecified, not intractable, without status migrainosus; E87.6 Hypokalemia; Z79.899 Other long term (current) drug therapy; Z88.0 Allergy status to penicillin; Z91.041 Radiographic dye allergy status; Y73.2 Prosthetic and other implants, materials and accessory gastroenterology and urology devices associated with adverse incidents
CPT/HCPCS: 88307; 36415; 71046; 80048; 80053; 83036; 83735; 85014; 85018; 85025; 85027; 85610; 85730; 86850; 86900; 86901; 93005; 94640; 97116; 97162; A4300; J1335

== ENCOUNTER 2024-06-06 22:54 | Inpatient (IN) | payer OTHER, SELFPAY ==
[2024-06-06] VITALS (8 sets, daily range): BP systolic 126–159; BP diastolic 70–89; BMI 19.9
[2024-06-06 16:22] LABS: % Basophils 0.5 % (0-2); % Eosinophils 1.6 % (0-6); % Immature Granulocytes 0.4 % (0-0.5); % Lymphocytes 11.1 % (20.5-51.1); % Monocytes 9.4 % (1.7-9.3); Absolute Basophils 0.1 10^3/uL (0-0.2); Absolute Eosinophils 0.2 10^3/uL (0-0.7); Absolute Immature Granulocytes 0.1 10^3/uL (0-0.05); Absolute Lymphocytes 1.5 10^3/uL (1.2-3.4); Absolute Monocytes 1.3 10^3/uL (0.1-0.6); Absolute Neutrophils 10.6 10^3/uL (1.4-6.5); Hematocrit 33.8 % (37.0-47.0); Hemoglobin 11.6 g/dL (12.0-16.0); Mean Corp Hgb Conc. 34.3 g/dL (33.0-37.0); Mean Corpuscular Hgb 29.8 pg (27.0-31.0); Mean Corpuscular Volume 86.9 fL (81.0-99.0); Mean Platelet Volume 8.7 fL (7.4-10.4); Nucleated Red Blood Cells % 0 %; Platelet Count 347 10^3/uL (130-400); Red Blood Cell Count 3.89 10^6/uL (4.20-5.40); Red Cell Dist. Width 13.1 % (11.5-14.5); White Blood Cell Count 13.7 10^3/uL (4.8-10.8)
[2024-06-06 16:37] LABS: ALT (SGPT) 11 U/L (0-35); AST (SGOT) 16 U/L (14-36); Albumin 4.1 g/dl (3.5-5.0); Alkaline Phosphatase 105 U/L (38-126); Blood Urea Nitrogen 25 mg/dl (7-17); Calcium 10.1 mg/dl (8.4-10.2); Carbon Dioxide 15 mmol/L (22-30); Chloride 105 mmol/L (98-107); Glucose 122 mg/dl (70-99); Potassium 3.9 mmol/L (3.5-5.1); Sodium 140 mmol/L (135-145); Total Bilirubin 0.4 mg/dl (0.2-1.3); Total Protein 7.5 g/dl (6.3-8.2); eGFR 26.48
[2024-06-06 17:17] LABS: COVID-19 Antigen Negative (Negative)
[2024-06-06 17:37] LABS: Urine Albumin 1+ (Neg - Trace); Urine Bilirubin Negative (Negative); Urine Character Very Cloudy (Clear); Urine Color Yellow; Urine Glucose Negative (Negative); Urine Ketone Negative (Negative); Urine Leukocyte 2+ (Negative); Urine Nitrite Negative (Negative); Urine Occult Blood 3+ (Negative); Urine Specific Gravity 1.015 (<1.030); Urine Urobilinogen Negative (Neg - 1+)
[2024-06-06 17:48] LABS: Urine Bacteria Many (Negative); Urine White Cell 30-40 /HPF (0-5)
[2024-06-06 17:49] LABS: Urine Yeast Many (Negative)
--- NOTE | 2024-06-06 18:23 | ED.GENMED ---
History of Present Illness
General
Chief Complaint: Abdominal Symptoms
Source: patient
Exam Limitations: none
Time Seen by Provider: 06/06/24 17:11
Nursing documentation reviewed up to this point in time: agreed with
History of Present Illness
History of Present Illness:
59 yr old female presents to the ER for evaluation. Patient has a history of diverticulitis with abscess and perforation with colectomy vesico-colic fistula with repair presents to the ER for evaluation. Patient reports over the past 5 days to 1
week she has not felt well. She has had fevers as high as 10 to 1.8, nausea back pain dizziness flank pain lower abdominal discomfort mild dysuria decreased appetite.
Past History
Past History
ED Past Medical History: Asthma, GERD, Hypercholesterolemia and Other ('Angina', migraines, Endometriosis, Deviated septum, )
ED Past Surgical History: Cholecystectomy, (X 2), Tonsilectomy and Other (Tracheostomy with removal)
Social History
Tobacco: Non-smoker
Alcohol: None
Drug: None
Personal: Other (Seperated)
Living: with family
Employment: Employed
Review of Systems
Review of Systems
Allergies reviewed?: Yes
Other source history: family
All Other Systems: ROS reviewed and negative except as documented in HPI and ROS
Constitutional: Reports fever and chills
EENT: Reports no symptoms
Respiratory: Reports no symptoms
Cardiac: Reports no symptoms
ABD/GI: Reports nausea and vomiting
: Reports flank pain
Musculoskeletal: Reports no symptoms
Skin: Reports no symptoms
Neurological: Reports no symptoms
Psychiatric: Reports no symptoms
Phy Exam
General Physical Exam
General Presentation: no apparent distress
General age: appears stated age
General Skin: warm and dry
General Habitus: normal
General Mental: alert
General Hydration: appears well hydrated
Cardiovascular Exam
Cardiovascular Exam: regular rate/rhythm, no murmur and normal peripheral pulses
Pulmonary Exam
Pulmonary Exam: lungs clear and no respiratory distress
Gastrointestinal Exam
Gastrointestinal Exam: non tender, soft and other (Old healing incisions to abdomen with no evidence of infection)
Neurological Exam
Neurological Exam: alert
Musculoskeletal Exam
Musculoskeletal Exam: full ROM
Skin Exam
Skin Exam: normal color and warm/dry
Psychiatric Exam
Psychiatric Exam: normal mood/affect
Sepsis
Sepsis Screening
Sepsis Assessment: Sepsis Ruled Out
Sepsis Screen
Sepsis Screen: Sepsis Ruled Out
Date: 06/06/24
Time: 21:42
Course
Orders/Labs/Results
Orders:
Orders
06/06/24 16:09
COVID-19 Antigen Urgent
Source: Nasal Swab
Complete Blood Count/With Diff Urgent
Comprehensive Metabolic Panel Urgent
Lactate Level [Lactic Acid] Q4H
Influenza A+B Rapid Molecular Urgent
CRISPIN Source: Nasal Swab
Specimen Description:
06/06/24 17:24
Urinalysis Reflex To Culture Urgent
Date Specimen was Collected: 06/06/24
Time Specimen was Collected: 17:18
Urine Microscopic Reflex Cult Urgent
Urine Culture Urgent
CRISPIN Source: U
Specimen Description:
Date Specimen was Collected: 06/06/24
Time Specimen was Collected: 17:18
06/06/24 18:33
0.9% Sodium Chloride 1000 ml [Nss] 1,000 ml IV BOLUS
06/06/24 18:34
Ondansetron Injectable [Zofran] 4 mg IV NOW STA
06/06/24 18:42
CT Abd/pel Without Iv Or Oral Urgent
Comment:
Reason For Exam: back pain /abd pain fever hx of fistula
06/06/24 20:00
0.9% Sodium Chloride 1000 ml [Nss] 1,000 ml IV BOLUS
09/25/24 20:40
CefTRIAXone [Rocephin] 1,000 mg IV NOW STA
Abnormal Lab Results
06/06/24 06/06/24
16:09 17:24
WBC 13.7 H 10^3/uL
(4.8-10.8)
RBC 3.89 L 10^6/uL
(4.20-5.40)
Hgb 11.6 L g/dL
(12.0-16.0)
Hct 33.8 L %
(37.0-47.0)
Abs Immat Gran (auto) 0.1 H 10^3/uL
(0-0.05)
Absolute Neuts (auto) 10.6 H 10^3/uL
(1.4-6.5)
Absolute Monos (auto) 1.3 H 10^3/uL
(0.1-0.6)
Neutrophils % 77.0 H %
(42.2-75.2)
Lymphocytes % 11.1 L %
(20.5-51.1)
Monocytes % 9.4 H %
(1.7-9.3)
Carbon Dioxide 15 L mmol/L
(22-30)
BUN 25 H mg/dl
(7-17)
Creatinine 2.1 H mg/dL
(0.6-1.0)
Glucose 122 H mg/dl
(70-99)
Ur Occult Blood Reflex 3+ A
(Negative)
Leukocyte Esterase Rfl 2+ A
(Negative)
Urine RBC 3-6 A /HPF
(0-2)
Urine WBC (Reflex) 30-40 A /HPF
(0-5)
Urine Bacteria (Reflex) Many A
(Negative)
Urine Yeast Many A
(Negative)
Urine Albumin (Reflex) 1+ A
(Neg - Trace)
09/25/24 16:09
06/06/24 16:09
Vital Signs
Initial and Last Documented VS:
Initial Vital Signs
Temp Pulse Resp BP Pulse Ox
99.0 F 108 16 131/89 97
06/06/24 15:58 06/06/24 15:58 06/06/24 15:58 06/06/24 15:58 06/06/24 15:58
Last Documented Vital Signs
Temp Pulse Resp BP Pulse Ox
98.5 F 101 17 135/70 97
06/06/24 17:25 06/06/24 19:45 06/06/24 19:45 06/06/24 19:00 06/06/24 19:45
Nuclear Equipment Test Engineer consulted with Physician
Nuclear Equipment Test Engineer consulted with physician?: Yes
Name of Physician Consulted: DR Loredo
MDM/Problems Addressed
Differential Diagnosis Includes:
Not limited to UTI pyelonephritis renal colic diverticulitis
MDM/Problems Addressed:
Patient is document is a 59-year-old female with significant history including perforated diverticulitis and colon bladder fistula presented to the ER with 1 week of fever chills back pain nausea vomiting. Patient presents with an elevated white
count of 13,000 increased creatinine of 2.1. Normal lactic acid. Urine appears infected. CAT scan shows moderate acute bilateral hydroureteronephrosis secondary to a 3.4 mm obstructing stone at the right UVJ and a 5.7 millimeter stone in the left
mid to distal ureter.
Patient was given2 L fluids and IV antibiotics. Repeat temp 99
Case reviewed with urology Dr. Rodriguez does recommend admitting to the hospitalist service keeping overnight n.p.o. will need stents in the morning. He does recommend the patient strain all urine overnight.
Chronic conditions affecting care:
History of complicated diverticulitis with perforation; bladder colon fistula
*Radiology
Radiology exam reviewed: radiology read reviewed
*Pulse Oximetry
Patient hypoxic: no
*Critical Care Note
Total Time (30-74mins, 75-104mins- exclusive of procedures): Not Applicable
Patient Management
Discussion with other providers: Professor Of Musicology (urology DR Rodriguez )
ED Attending Note
-
Portions of this chart may have been created with voice recognition software.� Occasional wrong word or��sound alike� substitutions may have occurred due to the inherent limitations of voice recognition software.
Discharge Plan
Departure
Patient Disposition: Admit
Date of Disposition: 06/06/24
Time of Disposition: 21:18
Admit to: Med/Surg
Admit to doctor: hospitaist
Presentation/result/management discussed w/ accepting MD/DO: Hospitalist
Patient with high blood pressure during this ER visit?: Yes
Condition: Fair
Covid-19: Not Applicable
Discharge Problem:
infected renal stone
Prescriptions:
No Action
pantoprazole 40 mg tablet,delayed release (DR/EC)
40 mg PO DAILY 30 Days Qty: 30 0RF
ibuprofen 400 mg Tablet
400 mg PO Q6HPRN PRN (Reason: mild pain)
montelukast [Singulair] 10 mg Tablet
10 mg PO DAILY
ondansetron HCl 4 mg Tablet
4 mg PO Q6H PRN (Reason: nausea)
phenazopyridine [Pyridium] 200 mg tablet
200 mg PO TID PRN (Reason: Pain) Qty: 6 0RF
nystatin 100,000 unit/gram cream
1 applic topical BID Qty: 15 0RF
Rx Instructions:
lower abdomen
melatonin 1 mg Tablet
1 mg PO HS PRN (Reason: insomnia)
cannabidiol 100 mg/mL Solution
1 mg PO PRN PRN (Reason: anxiety)
lorazepam [Ativan] 1 mg Tablet
1 mg PO TID PRN (Reason: anxiety)
acetaminophen-codeine 300-30 mg tablet
1 tab PO PRN 14 Days Qty: 20 0RF
Rx Instructions:
Last filled 04/21/24 #25 x7 days supply
Referrals:
Nish Sparks MD [Family Provider] -
Interventions
Interventions:
*Risk Screen - Suicide Last Done: 06/06/24 15:58
ED- Fall Risk Assessment Last Done: 06/06/24 17:34
BG-Oknarp-Ewtwmreylm Assessment Last Done: 06/06/24 17:34
Discharge Date and Time
Print Language: THAI
[2024-06-06] MEDS: NSS 1000 IV ×2 (18:43→20:51)
[2024-06-06] MEDS: ZOFRAN 4 MG IV (18:43)
[2024-06-06] MEDS: ROCEPHIN 1000 MG IV (21:29)
--- NOTE | 2024-06-06 21:39 | HPS.HSE ---
Addendum entered and electronically signed by Patel Howard DO 06/06/24 22:59:
Patient seen and examined independently. Agree with findings and plan as set forth by COSMO Ritchie.
Patient is a 59y F with PMH significant for complicated diverticular disease s/p recent robotic sigmoid resection who presents to ED complaining of flank pain with radiation into the abdomen, fevers / chills, malaise and anorexia. Symptoms have
been present / progressive for about 1 week or so. She has been taking Motrin around the clock at home with minimal improvement in her symptoms. She presented to the ED for further evaluation and treatment.
Evaluation in the ED reveals bilateral ureteral stones with perinephric stranding / hydronephrosis.
Ass:
Bilateral Pyelonephritis
Bilateral Ureteral Stones with Obstructive Uropathy
KELLIE secondary to the above
Sepsis secondary to the above
Complicated Diverticulitis s/p Sigmoid Resection (04/2024)
Bladder Perforation (misplaced drain) s/p Repair
Asthma without Acute Exacerbation
Anxiety / Depression
GERD
Plan:
Admit for further evaluation and treatment.
NPO, IVFs, IV abx.
Tamsulosin / strain urine.
Urology evaluation - probable ureteroscopy +/- stents in the AM.
Follow up culture data when available.
Follow for clinical improvement.
Follow for improvement in renal function with IVFs and removal of stones / obstruction.
Original Note:
Family Physician
-
Family Physician: Nish Sparks
Chief Complaint
-
fever chills
History of Present Illness
59 yr old female with PMH for diverticulitis, asthma, GERD, dyslipidemia presented to us with bilateral back pain which started five days ago. it radiated to the abdomen. she noticed fever, chills. temp of 101.8 at home. she was taking Motrin every
6 hours with no much relief in her symptoms. she complained of BROWN and dizzy. has chronic sob.denied chest pain.stated nauseous, poor appetite and vomited couple times.patient stated painful urination at times. denied hematuria.
patient has a history of diverticulitis with abscess and perforation with colectomy vesico-colic fistula with repair. patient underwent robotic sigmoidectomy. patient was also noted to minor bladder injury due to misplaced percutaneous pelvic drain.
patient underwent Robotic cystorrhaphy with removal of misplaced percutaneous pelvic drain.
CT with MODERATE ACUTE BILATERAL HYDROURETERONEPHROSIS secondary to (1) a 3.4 mm obstructing calculus at the right ureterovesical junction and (2) a 5.7 mm obstructing calculus in the left mid to distal ureter.
patient received iv ceftriaxone in ER.admitting for further management.
Medical History
Past Medical History
Past Medical History: Reports Other
Additional Past Medical History:
Asthma
Hiatal hernia
GERD
Iron deficiency anemia
Dyslipidemia
Past Surgical History: Reports Other
Additional Past Surgical History:
Intra-abdominal abscess IR drain
Cholecystectomy
Sigmoidectomy
Social History
Tobacco: Non-smoker
Alcohol: None
Drug: None
Living: With Family
Family History
Family History: Not pertinent
Allergies / Home Medications
Allergies reflects when Allergies were last updated in [employer].
Home Medications with original date entered in [employer]
Allergy/Medication List:
Allergies
Allergy/AdvReac Type Severity Reaction Status Date / Time
Penicillins Allergy convulsions(baby); Verified 05/04/24 06:13
tolerated
amoxicillin
Home Medications
pantoprazole 40 mg tablet,delayed release 40 mg PO DAILY 30 days #30 tabs 08/17/23
montelukast 10 mg tablet (Singulair) 10 mg PO HS Lung/Breathing Issues 01/13/24
ondansetron HCl 4 mg tablet 4 mg PO Q6HPRN PRN nausea 02/01/24
albuterol sulfate 2.5 mg/3 mL (0.083 %) solution for nebulization 2.5 mg inhalation R Q6HPRN PRN sob 06/06/24
albuterol sulfate 90 mcg/actuation aerosol inhaler 2 puff inhalation R Q6HPRN PRN sob 06/06/24
ibuprofen 200 mg tablet 600 mg PO Q6HPRN PRN mild pain 06/06/24
lorazepam 0.5 mg tablet 0.5 mg PO DAILYPRN PRN anxiety 06/06/24
melatonin 2.5 mg chewable tablet 2.5 mg PO HS 06/06/24
oxymetazoline 0.025 % nasal drops 1 drp intranasal HSPRN PRN allergies 06/06/24
Review of Systems
-
Constitutional: Reports Fever and Fatigue
EENT: Reports No Symptoms
Respiratory: Reports No Symptoms
Cardiac: Reports No Symptoms
Abdomen/GI: Reports Abdominal Pain
: Reports Flank Pain
Musculoskeletal: Reports No Symptoms
Skin: Reports No Symptoms
Neurological: Reports Dizzy, Headache and Weakness
Endocrine: Reports No Symptoms
Hematologic/Lymphatic: Reports No Symptoms
Psych: Reports No Symptoms
Physical Exam
Vital Signs
Vital Signs
Temp Pulse Resp BP Pulse Ox
98.5 F 101 17 135/70 97
06/06/24 17:25 06/06/24 19:45 06/06/24 19:45 06/06/24 19:00 06/06/24 19:45
Physical Exam
General: Well Developed, Well Nourished and No Apparent Distress
HEENT: NormoCephalic, Moist mucous membranes and Atraumatic
Respiratory: Clear
Cardiac: S1/S2 and Regular Rhythm; No Murmur or Rub
GI: Soft, Non Tender, Non Distended and Normal Bowel Sounds; No Organomegaly
Rectal: Deferred by Provider
Musculoskeletal: No Clubbing, No Cyanosis and No Edema
Skin: No Rash
Neuro: AO x 3 and Nonfocal/grossly intact
Psych: Calm
Laboratory Results
-
06/06/24 16:09
06/06/24 16:09
Laboratory Results
Lactic Acid Cancelled 06/06/24 20:15
Total Bilirubin 0.4 mg/dl (0.2-1.3) 06/06/24 16:09
AST 16 U/L (14-36) 06/06/24 16:09
ALT 11 U/L (0-35) 06/06/24 16:09
Alkaline Phosphatase 105 U/L (38-126) 06/06/24 16:09
Data Reviewed
-
CT Scan: Report Reviewed by me
Lab Data: Labs Reviewed by me
Impression/Plan
-
#fever/chills likely due to UTI/bilateral hydro and obstructing calculus
#sepsis as evident by wbc 13.7,tachy
-C abdomen pelvis with MODERATE ACUTE BILATERAL HYDROURETERONEPHROSIS secondary to (1) a 3.4 mm obstructing calculus at the right ureterovesical junction and (2) a 5.7 mm obstructing calculus in the left mid to distal ureter. Severe circumferential
wall thickening in the rectum suspicious for an acute proctitis. Previous sigmoidectomy. Severe diverticulosis in the distal descending colon. Moderate diffuse hepatic steatosis. Previous cholecystectomy.Moderate-sized hiatal hernia.
-IV ceftriaxone continued
-Keep patient n.p.o.
-Fluids continued for hydration
-Strain urine
-Urology consult
#acute kidney injury/anion gap metabolic acidosis likely dehydration
-cr 2.1, Bn 25. co2 15
-Fluids continued BMP
-BMP in a.m.
# Recurrent diverticulitis with abscess
-Status post robotic sigmoidectomy with cystorrhaphy and removal of misplaced perc pelvic drain
#HXT of asthma
-patient not in acute exacerbation
-nebs from home continued
-Singular continued
# Anxiety
-Lorazepam continued
# GERD
-Pantoprazole continued
# DVT prophylaxis
-SCD
#CODE status
-full code
[2024-06-06] MEDS: FLOMAX 0.4 MG PO (22:13)
[2024-06-06] MEDS: TYLENOL 650 MG PO (23:57)
[2024-06-07] VITALS (28 sets, daily range): BP systolic 101–160; BP diastolic 57–89; BMI 19.8
[2024-06-07] MEDS: NSS 1000 IV ×3 (01:52→21:31)
[2024-06-07] MEDS: ZOFRAN 4 MG IV ×2 (01:52→08:01)
--- NOTE | 2024-06-07 02:00 | PTCARENOTE ---
Pt arrived to floor via stretcher from the ED. Pt able to ambulate from stretcher to room with assistance, generalized weakness noted. Pt AAOx3. HR in the low 100's ST on the monitor. POX 93% on RA. Lungs clear. + bowel. Pt reports feeling nauseous,
PRN nausea medication administered as ordered. Old scabbed over midline abd wound noted, as well as 5 lap sites scabbed and open to air. Palpable peripheral pulses present. Pale skin. Knee high seq in place. Right AC int infusing NSS@125ml/hr as
ordered. Oral temp 100.2 at this time, Pt received Tylenol just prior to arrival, will monitor. Daughter at bedside spending the night. Pt instructed to use call carranza when needing to use BR and instructed on need to strain all urine, Pt and daughter
reports understanding. Pt now resting comfortably. Will continue to monitor.
[2024-06-07 05:16] LABS: Hematocrit 29.3 % (37.0-47.0); Mean Corp Hgb Conc. 34.1 g/dL (33.0-37.0); Mean Corpuscular Hgb 29.9 pg (27.0-31.0); Mean Corpuscular Volume 87.7 fL (81.0-99.0); Mean Platelet Volume 8.8 fL (7.4-10.4); Platelet Count 313 10^3/uL (130-400); Red Blood Cell Count 3.34 10^6/uL (4.20-5.40); Red Cell Dist. Width 13.2 % (11.5-14.5); White Blood Cell Count 11.8 10^3/uL (4.8-10.8)
--- NOTE | 2024-06-07 05:17 | PTCARENOTE ---
Pt ambulatory to bathroom, voided 350 yellow urine. Pt denies any complaints of burning or discomfort. Urine strained per MD order, no stones noted at this time. Pt assisted back to bed. Pt complaining of being very cold, warm blankets provided. Pt
very pale. Vitals stable. IVF infusing as ordered. No other changes in assessment noted at this time. Will continue to monitor.
[2024-06-07 05:38] LABS: Blood Urea Nitrogen 19 mg/dl (7-17); Calcium 9.2 mg/dl (8.4-10.2); Carbon Dioxide 17 mmol/L (22-30); Chloride 111 mmol/L (98-107); Estimated Creatinine Clearance 31 ml/min; Glucose 118 mg/dl (70-99); Potassium 4.1 mmol/L (3.5-5.1); Sodium 141 mmol/L (135-145); eGFR 34.12
--- NOTE | 2024-06-07 08:00 | PTCARENOTE ---
Assumed care of patient at 0645. Assessment completed and documented appropriately in worklist.
Patient is AAOX3, tearful and presently nauseous. Treated with PRN Zofran. Assisted to bathroom for toileting, and strained urine (no evidence of any particles). Assisted back to bed.
[2024-06-07] MEDS: PROTONIX 40 MG PO (08:01)
[2024-06-07] MEDS: FLOMAX 0.4 MG PO (08:01)
--- NOTE | 2024-06-07 08:53 | W.PN.URO.CBU ---
Today's Communication / Plan
-
Discussed CT scan and blood urine test results with patient
Have advised that she undergo urgent cystoscopy with bilateral JJ stent placement given possible complicated UTI, with delayed definitive stone surgery
Risk of worsening sepsis, bladder injury given recent surgery and ureteral injury reviewed
Written and verbal consent provided
Assessment / Plan
-
Bilateral obstructing ureteral stones
Possible complicated UTI
KELLIE
Diagnosis
-
Date of Service: June 07, 2024
-
Patient Diagnosis:
Bilateral partially obstructing bilateral ureteral stones
Abdominal pain
KELLIE
Possible complicated UTI
---
s/p robotic partial sigmoidectomy with cystorrhaphy/removal of errant percutaneous drain 05/04/24
Subjective
-
Weak
Nauseated
c/o generalized abdominal pain
Objective
-
Vital Signs
Temp Pulse Resp BP Pulse Ox
100.1 F 92 27 136/70 94
06/07/24 07:47 06/07/24 07:15 06/07/24 07:15 06/07/24 07:00 06/07/24 07:15
Intake and Output
06/06/24 06/07/24 06/08/24
06:59 06:59 06:59
Intake Total 625 / 625
Output Total 350 / 350 300 / 300
Balance 275 / 275 -300 / -300
Intake:
IV fluids (Total) 625 / 625
Nss 1,000 ml @ 125 mls/hr IV . 625 / 625
Q8H TERESA Rx#:[id number]
Output:
Urine, Voided 350 / 350 300 / 300
Laboratory Results
06/07/24 05:01
06/07/24 05:01
06/06/24 CT scan images personally reviewed
Review of Systems
-
Constitutional: Fatigue
Respiratory: No Symptoms
Cardiac: No Symptoms
Abdomen/GI: Abdominal Pain and Nausea
Neurological: No Symptoms
Physical Exam
-
General - well developed, well nourished, uncomfortable
Chest - clear bilaterally
Abdomen - guarded, tender
Skin - warm & dry with no rash
Neuro - AOx3, no motor deficits
Counseling
-
NPO
Continue Rocephin
OR today
[2024-06-07] MEDS: TYLENOL 650 MG PO (11:40)
--- NOTE | 2024-06-07 11:40 | PTCARENOTE ---
Report given to preop RN. Patient febrile to 100.8, Tylenol given before transported to pre-op hold area.
--- NOTE | 2024-06-07 13:32 | W.IMMPOSTOP ---
Surgical Immed Post Op Note
-
Primary Surgeon: Michael
Assisting Surgeon: None
Pre-op Diagnosis: Bilateral ureteral calculi with hydronephrosis, KELLIE, possible urosepsis
Post-op Diagnosis: Same
Procedure Performed: Right ureteroscopic laser lithotripsy with stone manipulation, placement bilateral ureteral stents
Anesthesia Type: GET
Specimen / Cultures: Urine culture after stent placement
Estimated Blood Loss: None
Complications: None
[2024-06-07] MEDS: DILAUDID 0.25 MG IV ×2 (14:00→14:17)
--- NOTE | 2024-06-07 14:17 | CM ---
Cm reviewed medical records. Patient lives with daughter independently. Patient has had a history for [facility], but not currently on service. Patient is active with her PCP. Patient has pharmacy services.
PLAN: Home no needs.
--- NOTE | 2024-06-07 14:50 | PTCARENOTE ---
Patient brought back from PACU s/p right ureteroscopic laser lithotripsy with stone manipulation, placement bilateral ureteral stents.
Hemodynamically stable, 16fr menjivar draining clear yellow urine.
[2024-06-07] MEDS: VENTOLIN NEBULES 2.5 MG INH ×2 (15:12→18:56)
--- NOTE | 2024-06-07 15:29 | W.PN.HOSP.TC ---
Today's Communication/Plan
-
Continue antibiotics
Stents placed today
Appreciate colorectal surgery and ID evaluation and recommendations
Assessment / Plan
Assessment / Plan
Physical Exam
General: Not in acute distress
HEENT: Normocephalic
Respiratory: CTAB
Cardiac: S1/S2 and Regular Rhythm
GI: Soft, Non Tender, Non Distended and Normal Bowel Sounds
Musculoskeletal: No Cyanosis and No Edema
Skin: Warm. Dry.
Neuro: AAO x 3 and Nonfocal/grossly intact
Psych: Calm
Assessment/Plan
59 y/o female with past medical history significant for complicated diverticular disease status post recent robotic sigmoid resection who presented to the [facility] Emergency Department complaining of flank pain with radiation into the
abdomen, fevers/chills, malaise and anorexia. Symptoms have been present / progressive for about 1 week or so prior to arrival. She had been taking Motrin around the clock at home with minimal improvement in her symptoms. She presented to the ED
for further evaluation and treatment. Evaluation in the ED revealed bilateral ureteral stones with perinephric stranding / hydronephrosis.
#Bilateral Pyelonephritis/Complicated UTI
#Bilateral Ureteral Stones with Obstructive Uropathy and B/L Hydronephrosis status post right ureteroscopic laser lithotripsy with stone manipulation, placement bilateral ureteral stents on 06/07/24
#Fever/chills likely due to UTI/bilateral hydro and obstructing calculus
#Sepsis Secondary to Complicated UTI
-CT abdomen pelvis as per radiologist's report with MODERATE ACUTE BILATERAL HYDROURETERONEPHROSIS secondary to (1) a 3.4 mm obstructing calculus at the right ureterovesical junction and (2) a 5.7 mm obstructing calculus in the left mid to distal
ureter. Severe circumferential wall thickening in the rectum suspicious for an acute proctitis. Previous sigmoidectomy. Severe diverticulosis in the distal descending colon. Moderate diffuse hepatic steatosis. Previous
cholecystectomy.Moderate-sized hiatal hernia.
-Continue IV ceftriaxone
-Keep patient n.p.o.
-IV Fluids continued for hydration
-Urine culture growing Angie, also follow intraoperative urine culture
-Strain urine
-Urology consulted, appreciate their evaluation and recommendations
-ID consulted, appreciate their evaluation and recommendations
#Severe Circumferential Wall Thickening in Rectum Suspicious for an Acute Proctitis, as per radiologist's report
#Severe Diverticulosis
#History of Sigmoidectomy
-Continue antibiotics with Rocephin and Flagyl
-Consulted colorectal surgery, appreciate their evaluation and recommendations
#acute kidney injury/anion gap metabolic acidosis likely secondary to urinary tract obstruction
-Monitor BMP
# Recurrent diverticulitis with abscess
-Status post robotic sigmoidectomy with cystorrhaphy and removal of misplaced perc pelvic drain
#HXT of asthma
-patient not in acute exacerbation
-nebs from home continued
-Singular continued
# Anxiety / Depression
-Lorazepam continued
# GERD
-Pantoprazole continued
#Moderate Diffuse Hepatic Steatosis on CT Imaging
# Complicated Diverticulitis s/p Sigmoid Resection (04/2024)
# Bladder Perforation (misplaced drain) s/p Repair
# Asthma without Acute Exacerbation
# DVT prophylaxis
-Heparin Subq
#CODE status
-full code
Sepsis with complicated UTI with proctitis on imaging getting antibiotics and IV fluids and being monitored in the ICU is a high risk encounter.
Anticipated Discharge: > 48 hours
Subjective/Interval History
-
Date of Service: June 07, 2024
Patient was seen and examined. She reported not feeling well, feeling about the same as when she came in.
Objective Data
-
Labs:
Laboratory Results
06/07/24
05:01
WBC 11.8 H
Hgb 10.0 L
Hct 29.3 L
Plt Count 313
Sodium 141
Potassium 4.1
Chloride 111 H
Carbon Dioxide 17 L
BUN 19 H
Creatinine 1.7 H
Glucose 118 H
Calcium 9.2
Vital Signs:
Vital Signs
Temp Pulse Resp BP Pulse Ox
98.1 F 80 12 101/64 96
06/07/24 14:30 06/07/24 15:15 06/07/24 15:15 06/07/24 14:30 06/07/24 15:15
I&O
06/06/24 06/07/24 06/08/24
06:59 06:59 06:59
Intake Total 625 / 625
Output Total 350 / 350 700 / 700
Balance 275 / 275 -700 / -700
[2024-06-07 18:35] LABS: Hepatitis C Antibody Negative (Negative)
[2024-06-07] MEDS: HEPARIN 5000 UNITS SC (21:36)
[2024-06-07] MEDS: ROCEPHIN 1000 MG IV (21:37)
[2024-06-07] MEDS: MELATONIN 2.5 MG PO (21:37)
[2024-06-07] MEDS: SINGULAIR 10 MG PO (21:38)
[2024-06-07] MEDS: STERILE WATER FOR INJECTION 10 ML IV (21:38)
[2024-06-08] VITALS (14 sets, daily range): BP systolic 123–148; BP diastolic 62–77
[2024-06-08] MEDS: NSS 1000 IV (06:04)
[2024-06-08 06:40] LABS: Hematocrit 28.2 % (37.0-47.0); Hemoglobin 9.7 g/dL (12.0-16.0); Mean Corp Hgb Conc. 34.4 g/dL (33.0-37.0); Mean Corpuscular Hgb 29.9 pg (27.0-31.0); Platelet Count 315 10^3/uL (130-400); Red Blood Cell Count 3.24 10^6/uL (4.20-5.40); White Blood Cell Count 11.8 10^3/uL (4.8-10.8)
[2024-06-08 07:02] LABS: Blood Urea Nitrogen 17 mg/dl (7-17); Calcium 9.3 mg/dl (8.4-10.2); Carbon Dioxide 19 mmol/L (22-30); Chloride 109 mmol/L (98-107); Estimated Creatinine Clearance 59 ml/min; Glucose 127 mg/dl (70-99); Potassium 4.5 mmol/L (3.5-5.1); Sodium 142 mmol/L (135-145); eGFR > 60.00
[2024-06-08] MEDS: TYLENOL 650 MG PO ×4 (07:20→19:47)
[2024-06-08] MEDS: PROTONIX 40 MG PO (08:48)
[2024-06-08] MEDS: FLOMAX 0.4 MG PO (08:48)
[2024-06-08] MEDS: HEPARIN 5000 UNITS SC ×2 (08:48→19:47)
--- NOTE | 2024-06-08 09:00 | W.PN.URO.CBU ---
Today's Communication / Plan
-
Remove Dawn
Assessment / Plan
-
Bilateral obstructing ureteral stones s/p bilateral JJ stent placement 06/07/24
Possible complicated UTI: Angie in urine
KELLIE: resolved
Diagnosis
-
Date of Service: June 08, 2024
-
Patient Diagnosis:
Bilateral partially obstructing bilateral ureteral stones: s/p bilateral JJ stent placement 06/07/24
Abdominal pain
KELLIE
Possible complicated UTI
---
s/p robotic partial sigmoidectomy with cystorrhaphy/removal of errant percutaneous drain 05/04/24
Subjective
-
Nausea has resolved
Diminished abdominal pain
Objective
-
Vital Signs
Temp Pulse Resp BP Pulse Ox
98.8 F 73 31 138/69 96
06/08/24 08:15 06/08/24 08:00 06/08/24 08:00 06/08/24 08:00 06/08/24 08:00
Intake and Output
06/07/24 06/08/24 06/09/24
06:59 06:59 06:59
Intake Total 625 / 625 1685 / 1685
Output Total 350 / 350 3050 / 3050
Balance 275 / 275 -1365 / -1365
Intake:
IV fluids (Total) 625 / 625 1675 / 1675
Nss 1,000 ml @ 100 mls/hr IV . 625 / 625 1675 / 1675
Q10H TERESA Rx#:[id number]
IV piggybacks
Output:
Urine, Dawn 2350 / 2350
Urine, Voided 350 / 350 700 / 700
Laboratory Results
06/08/24 06:18
06/08/24 06:18
Review of Systems
-
Constitutional: Fatigue
Respiratory: No Symptoms
Cardiac: No Symptoms
Abdomen/GI: Abdominal Pain
Neurological: No Symptoms
Physical Exam
-
General - well developed, well nourished, no acute distress
Abdomen - soft
Genitalia - normal with Dawn draining clear urine
Skin - warm & dry with no rash
Counseling
-
Definitive bilateral ureteral stone surgery as outpatient in 3-4 weeks
--- NOTE | 2024-06-08 10:40 | CON.ID ---
Consultation
-
Date/Time Consultation Requested: 06/07/2024 15:59
Date/Time Consultation Performed: 06/08/2024 0957
Requesting Provider: Dr. Landry
Performing Provider: Dr. Walton
Reason for Consultation: Complicated UTI, stones, stents, Angie in urine
Chief Complaint / Past History
History of Present Illness
Clau Shankar is a 59-year-old female with a significant past medical history diverticulitis with diverticular abscess being evaluated at the request of Dr. Cadena regarding candiduria. History is obtained from chart review, along with patient
interview and history obtained from the patient's daughter who was at the bedside.
According to the patient, she developed severe diverticulitis with abscess formation in August 2023. Ultimately a drain needed to be placed, which for multiple reasons renamed in place through December 2023. The patient reports he was removed, but
1 week later it needed to be reinserted. During that reinsertion, her bladder was pierced and she ultimately developed a fistula. She was to have corrective surgery in March, but required cardiac clearance which delayed that surgery. Ultimately
she underwent elective robotic sigmoidectomy with repair of a vesicular cutaneous fistula on 05/04/2024. She was discharged to home on 05/08.
She presented back to the emergency room on 06/06/2024, reporting that she had not felt well for the past 5 to 7 days. She reported fevers to 101.8, along with nausea, vomiting x 1, bilateral flank pain and lower abdominal discomfort. Workup in the
emergency room included CT scanning which showed bilateral partially obstructing ureteral calculi. She was evaluated by Urology and taken to the OR on 06/07 for bilateral stent placement. Urinary cultures revealed growth of Angie species and
Infectious Diseases is asked to comment upon further antimicrobial therapy.
At this time, she reports she is feeling somewhat improved. She still has some lower abdominal discomfort with palpation. Fevers have improved.
She denies any current dysuria or hematuria. Her Dawn catheter has been removed as of this morning.
Past History
Additional Past Medical History:
Asthma
GERD
Dyslipidemia
Migraines
Endometriosis
Diverticulitis
Additional Past Surgical History:
Cholecystectomy
x 2
Tonsillectomy
Hx tracheostomy
Robotic sigmoidectomy with repair of vesicular cutaneous fistula
Allergy History:
Penicillins Allergy (Verified 05/04/24 06:13)
convulsions(baby); tolerated amoxicillin
Medications Reviewed: Yes
Current Antibiotics:
Ceftriaxone 1 g IV every 24 hours
Social History
Tobacco: Non-Smoker
Alcohol: None
Drug: None
Personal: Other (seperated)
Living: With Family
Employment: Not Employed
Family History
Family History: Not Pertinent
Review of Systems
Vital Signs
Temp Pulse Resp BP Pulse Ox
98.8 F 73 31 138/69 96
06/08/24 08:15 06/08/24 08:00 06/08/24 08:00 06/08/24 08:00 06/08/24 08:00
Physical Exam
Physical Exam
Constitutional: No Acute Distress, Comfortable and Non-toxic
Eyes: Pupils Equal, Pupils Round, No Conjunctival Hemorrhage and Sclera Anicteric
Oral: No Thrush and No Ulcers
Cardiovascular: Regular Rate and S1/S2; Negative S3/S4 or Murmur
Pulmonary: Clear; Negative Wheezes, Rales or Rhonchi
Gastrointestinal: Soft, Non Tender, Non Distended, Normal Bowel Sounds, No Rebound and No Guarding
Genito-Urinary: Negative CVA Tenderness
Extremities: Negative Edema, Cyanosis or Erythema
Skin: Warm and Dry; Negative Rash or Jaundice
Neurological: Awake and Alert
Psychological: Calm
.
Lab / Diagnostic Study Results
06/08/24 06:18
06/08/24 06:18
Abs Immat Gran (auto) 0.1 10^3/uL (0-0.05) H 06/06/24 16:09
Absolute Neuts (auto) 10.6 10^3/uL (1.4-6.5) H 06/06/24 16:09
Absolute Lymphs (auto) 1.5 10^3/uL (1.2-3.4) 06/06/24 16:09
Absolute Monos (auto) 1.3 10^3/uL (0.1-0.6) H 06/06/24 16:09
Absolute Basos (auto) 0.1 10^3/uL (0-0.2) 06/06/24 16:09
Immature Gran % 0.4 % (0-0.5) 06/06/24 16:09
Neutrophils % 77.0 % (42.2-75.2) H 06/06/24 16:09
Lymphocytes % 11.1 % (20.5-51.1) L 06/06/24 16:09
Monocytes % 9.4 % (1.7-9.3) H 06/06/24 16:09
Eosinophils % 1.6 % (0-6) 06/06/24 16:09
Basophils % 0.5 % (0-2) 06/06/24 16:09
Lactic Acid Cancelled 06/06/24 20:15
Microbiology Results
Micro:
06/07/24 13:18 Urine Culture - Preliminary
Urine Yeast
06/06/24 17:24 Urine Culture - Final
Urine Angie albicans
06/06/24 16:09 Influenza Types A & B (YUDITH) - Final
Nasal Swab Negative for Influenza A & B, NAAT
Negative results must be combined with clinical observations
and patient history.
Nucleic Acid Amplification test (NAAT)performed on the
[employer] platform.
Imaging:
06/06/2024 CT abdomen/pelvis without contrast: There is moderate acute bilateral hydroureteronephrosis secondary to bilateral obstructing calculi at the ureterovesical junctions. There is severe circumferential wall thickening in the rectum
suspicious for acute proctitis. Patient is status post sigmoidectomy. There is severe diverticulosis in the distal descending colon. Moderate diffuse hepatic steatosis is noted.
Assessment / Plan
Obstructive uropathy
Suspected bilateral pyelonephritis
Candiduria
Leukocytosis
Fever
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
Asthma
GERD
Dyslipidemia
Migraines
Endometriosis
Diverticulitis
Recommendations:
Continue with empiric ceftriaxone for today.
Add Diflucan 100 mg p.o. daily
Monitor white count and temperature curve.
Further recommendations as additional data has returned.
At present, no way to know whether stents are colonized. Following a tentative 10 to 14-day course of Diflucan, patient has been counseled to maintain good fluid intake to decrease overall urinary bioburden.
[2024-06-08] MEDS: SENOKOT-S 1 TABLET PO (11:27)
--- NOTE | 2024-06-08 13:02 | CON.CRS ---
Consultation
-
Date/Time Consultation Requested: 06/07/2024, 15:56
Date/Time Consultation Performed: 06/08/2024, 09:00
Requesting Provider: John Cadena MD
Performing Provider: Karl Hartmann MD
Reason for Consultation: history of surgery
Medical History
-
Chief Complaint: back pain
History of Present Illness:
59-year-old female, with a past medical history of recent robotic sigmoidectomy and repair of a vesicocutaneous fistula on 05/04/2024, presents to [facility] with back pain on 06/06/2024. The patient had been doing well postoperatively at home
until she recently developed nausea, fevers, and back pain. She had called our office and she was advised to go to the ER. In the ER she was found to have moderate acute bilateral hydro utero nephrosis secondary to an obstructing calculus in the
right ureterovesical junction an obstructing calculus in the left mid to ureter. Yesterday she underwent a right ureteroscopic laser lithotripsy with stone manipulation and had bilateral ureteral stents placed. She has remained on IV antibiotics
and ID has been consulted. We have been consulted for further surgical opinion given her recent surgery.
Past Medical History
Past Medical History: Other (Asthma, hiatal hernia, GERD, iron deficiency anemia, dyslipidemia)
Past Surgical History: Other (Intra-abdominal abscess status post IR drain, cholecystectomy, robotic sigmoidectomy by Dr. Mock on 05/04/2024)
Social History
Tobacco: Non-Smoker
Alcohol: None
Drug: None
Living: With Family
Family History
Family History: Reviewed & Not Pertinent
Allergies / Home Medications
Allergy/AdvReac Type Severity Reaction Status Date / Time
Penicillins Allergy convulsions(baby); Verified 05/04/24 06:13
tolerated
amoxicillin
�Medication �Instructions �Recorded �Confirmed �Type
pantoprazole 40 mg tablet,delayed 40 mg PO DAILY 30 days #30 tabs 08/17/23 06/06/24 Rx
release
montelukast 10 mg tablet 10 mg PO HS Allergies 01/13/24 06/06/24 History
(Singulair)
ondansetron HCl 4 mg tablet 4 mg PO Q6HPRN PRN nausea 02/01/24 06/06/24 History
albuterol sulfate 2.5 mg/3 mL 2.5 mg inhalation R Q6HPRN PRN sob 06/06/24 06/06/24 History
(0.083 %) solution for nebulization
albuterol sulfate 90 mcg/actuation 2 puff inhalation R Q6HPRN PRN sob 06/06/24 06/06/24 History
aerosol inhaler
ibuprofen 200 mg tablet 600 mg PO Q6HPRN PRN mild pain 06/06/24 06/06/24 History
lorazepam 0.5 mg tablet 0.5 mg PO DAILYPRN PRN anxiety 06/06/24 06/06/24 History
melatonin 2.5 mg chewable tablet 2.5 mg PO HS Sleep 06/06/24 06/06/24 History
oxymetazoline 0.025 % nasal drops 1 drp intranasal HSPRN PRN 06/06/24 06/06/24 History
allergies
Review of Systems
-
History Source: Patient
All other systems: Negative unless noted
Constitutional: Fatigue
Abdomen/GI: Nausea
Musculoskeletal: Muscle Pain (Back pain)
A 10 point review of systems was completed, and was negative except as per HPI.
Physical Exam
Vital Signs
Temp 98.0 F 06/08/24 11:12
Pulse 73 06/08/24 08:00
Resp Rate 31 06/08/24 08:00
Blood pressure 138/69 06/08/24 08:00
SaO2 95 06/08/24 12:01
06/07/24 06/08/24 06/09/24
06:59 06:59 06:59
Actual Weight 55.7 kg 56.2 kg
Body Mass Index (BMI) 20.0
Lab Results / Allergies
06/08/24 06:18
06/08/24 06:18
WBC 11.8 10^3/uL (4.8-10.8) H 06/08/24 06:18
Hgb 9.7 g/dL (12.0-16.0) L 06/08/24 06:18
Hct 28.2 % (37.0-47.0) L 06/08/24 06:18
Plt Count 315 10^3/uL (130-400) 06/08/24 06:18
Abs Immat Gran (auto) 0.1 10^3/uL (0-0.05) H 06/06/24 16:09
Neutrophils % 77.0 % (42.2-75.2) H 06/06/24 16:09
Allergy/AdvReac Type Severity Reaction Status Date / Time
Penicillins Allergy convulsions(baby); Verified 05/04/24 06:13
tolerated
amoxicillin
Physical Exam
General: Well Developed, Well Nourished and No Apparent Distress
GI: Soft, Non Tender and Non Distended
Skin: Warm and Dry
Neuro: AO x 3
Psych: Calm
Data Reviewed
-
CT Scan: Image Personally Visualized and interpreted and Report Reviewed by me
Labs: Labs Reviewed by me, Discussed with Physician and Discussed with Patient
Old Records: Reviewed
Assessment / Plan
-
Assessment: 59-year-old female with recent robotic sigmoidectomy secondary to diverticulitis presents to the ER with nausea and back pain found to have acute bilateral hydroureteronephrosis and underwent a right ureteroscopic laser lithotripsy and
bilateral of ureteral stents
Plan:
-Doing well from a colorectal surgery postop standpoint
-Antibiotics per ID
-No further imaging required from our standpoint
-Will sign off please contact us if further surgical issues arise
[2024-06-08] MEDS: NSS IV (13:15)
[2024-06-08] MEDS: DIFLUCAN 100 MG PO (13:16)
--- NOTE | 2024-06-08 17:24 | W.PN.HOSP.TC ---
Today's Communication/Plan
-
Patient is improving
Continue IV Ceftriaxone
Continue Diflucan
Appreciate ID and urology
Assessment / Plan
Assessment / Plan
Physical Exam
General: Not in acute distress
HEENT: Normocephalic
Respiratory: CTAB
Cardiac: S1/S2 and Regular Rhythm
GI: Soft, Non Tender, Non Distended and Normal Bowel Sounds
Musculoskeletal: No Cyanosis and No Edema
Skin: Warm. Dry.
Neuro: AAO x 3 and Nonfocal/grossly intact
Psych: Calm
Assessment/Plan
59 y/o female with past medical history significant for complicated diverticular disease status post recent robotic sigmoid resection who presented to the [facility] Emergency Department complaining of flank pain with radiation into the
abdomen, fevers/chills, malaise and anorexia. Symptoms have been present / progressive for about 1 week or so prior to arrival. She had been taking Motrin around the clock at home with minimal improvement in her symptoms. She presented to the ED
for further evaluation and treatment. Evaluation in the ED revealed bilateral ureteral stones with perinephric stranding / hydronephrosis.
#Bilateral Pyelonephritis/Complicated UTI
#Bilateral Ureteral Stones with Obstructive Uropathy and B/L Hydronephrosis status post right ureteroscopic laser lithotripsy with stone manipulation, placement bilateral ureteral stents on 06/07/24
#Fever/chills likely due to UTI/bilateral hydro and obstructing calculus
#Sepsis Secondary to Complicated UTI
-CT abdomen pelvis as per radiologist's report with MODERATE ACUTE BILATERAL HYDROURETERONEPHROSIS secondary to (1) a 3.4 mm obstructing calculus at the right ureterovesical junction and (2) a 5.7 mm obstructing calculus in the left mid to distal
ureter. Severe circumferential wall thickening in the rectum suspicious for an acute proctitis. Previous sigmoidectomy. Severe diverticulosis in the distal descending colon. Moderate diffuse hepatic steatosis. Previous
cholecystectomy.Moderate-sized hiatal hernia.
-Continue IV ceftriaxone
-Diflucan 100 mg p.o. daily started; continue
-Urine culture growing Angie, also follow intraoperative urine culture
-Strain urine
-Urology consulted, appreciate their evaluation and recommendations
-Remove Dawn Catheter today, as per urology
-ID consulted, appreciate their evaluation and recommendations
#Severe Circumferential Wall Thickening in Rectum Suspicious for an Acute Proctitis, as per radiologist's report
#Severe Diverticulosis
#History of Sigmoidectomy
-Consulted colorectal surgery, appreciate their evaluation and recommendations: as per colorectal surgery, the proctitis on imaging is of questionable significance and is in their opinion is likely just postoperative edema
#acute kidney injury/anion gap metabolic acidosis likely secondary to urinary tract obstruction
-Monitor BMP
# Recurrent diverticulitis with abscess
-Status post robotic sigmoidectomy with cystorrhaphy and removal of misplaced perc pelvic drain
#HXT of asthma
-patient not in acute exacerbation
-nebs from home continued
-Singular continued
# Anxiety / Depression
-Lorazepam continued
# GERD
-Pantoprazole continued
#Moderate Diffuse Hepatic Steatosis on CT Imaging
# Complicated Diverticulitis s/p Sigmoid Resection (04/2024)
# Bladder Perforation (misplaced drain) s/p Repair
# Asthma without Acute Exacerbation
# DVT prophylaxis
-Heparin Subq
#CODE status
-full code
Anticipated Discharge: 24 - 48 hours
Subjective/Interval History
-
Date of Service: June 08, 2024
Patient was seen and examined. She reported she was doing much better today, no fever, pain or any other complaints.
Objective Data
-
Labs:
Laboratory Results
06/08/24
06:18
WBC 11.8 H
Hgb 9.7 L
Hct 28.2 L
Plt Count 315
Sodium 142
Potassium 4.5
Chloride 109 H
Carbon Dioxide 19 L
BUN 17
Creatinine 0.9
Glucose 127 H
Calcium 9.3
Vital Signs:
Vital Signs
Temp Pulse Resp BP Pulse Ox
98.1 F 64 17 144/74 95
06/08/24 15:28 06/08/24 15:27 06/08/24 15:27 06/08/24 15:27 06/08/24 12:01
I&O
06/07/24 06/08/24 06/09/24
06:59 06:59 06:59
Intake Total 625 / 625 1685 / 1685 1400 / 1400
Output Total 350 / 350 3050 / 3050 725 / 725
Balance 275 / 275 -1365 / -1365 675 / 675
[2024-06-08] MEDS: MELATONIN PO (23:29)
[2024-06-08] MEDS: STERILE WATER FOR INJECTION 10 ML IV (23:30)
[2024-06-08] MEDS: ROCEPHIN 1000 MG IV (23:30)
[2024-06-08] MEDS: SINGULAIR 10 MG PO (23:30)
[2024-06-09] MEDS: TYLENOL #3 1 TABLET PO (00:13)
[2024-06-09] MEDS: ZOFRAN 4 MG IV ×3 (05:24→18:41)
[2024-06-09 05:31] VITALS: BP 139/70
[2024-06-09 05:50] LABS: Hematocrit 30.5 % (37.0-47.0); Hemoglobin 10.5 g/dL (12.0-16.0); Mean Corp Hgb Conc. 34.4 g/dL (33.0-37.0); Mean Corpuscular Volume 87.1 fL (81.0-99.0); Mean Platelet Volume 8.7 fL (7.4-10.4); Platelet Count 416 10^3/uL (130-400); Red Cell Dist. Width 13.2 % (11.5-14.5); White Blood Cell Count 13.1 10^3/uL (4.8-10.8)
[2024-06-09 05:57] LABS: Blood Urea Nitrogen 17 mg/dl (7-17); Calcium 9.1 mg/dl (8.4-10.2); Carbon Dioxide 21 mmol/L (22-30); Chloride 107 mmol/L (98-107); Estimated Creatinine Clearance 59 ml/min; Glucose 129 mg/dl (70-99); Sodium 143 mmol/L (135-145); eGFR > 60.00
--- NOTE | 2024-06-09 06:59 | W.PN.URO.CBU ---
Today's Communication / Plan
-
continue diflucan and medical support
outpt urology f/u
Assessment / Plan
-
Bilateral obstructing ureteral stones s/p bilateral JJ stent placement 06/07/24
Possible complicated UTI: Angie in urine
KELLIE: resolved
menjivar out
continue diflucan
outpt f/u with dr schneider to discuss definitive stone procedure
Diagnosis
-
Date of Service: June 09, 2024
-
Patient Diagnosis:
Bilateral partially obstructing bilateral ureteral stones: s/p bilateral JJ stent placement 06/07/24
Abdominal pain
KELLIE
Possible complicated UTI
---
s/p robotic partial sigmoidectomy with cystorrhaphy/removal of errant percutaneous drain 05/04/24
Subjective
-
menjivar out- pt with some frequency and back pain
mild nausea
no fevers
wbc at 13
ucx + for yeast- on diflucan
Objective
-
Vital Signs
Temp Pulse Resp BP Pulse Ox
99.4 F 79 17 148/67 95
06/09/24 03:42 06/09/24 04:00 06/08/24 15:27 06/08/24 23:39 06/08/24 20:00
Intake and Output
06/07/24 06/08/24 06/09/24
06:59 06:59 06:59
Intake Total 625 / 625 1685 / 1685 1400 / 1400
Output Total 350 / 350 3050 / 3050 725 / 725
Balance 275 / 275 -1365 / -1365 675 / 675
Intake:
Oral fluids 600 / 600
IV fluids (Total) 625 / 625 1675 / 1675 800 / 800
Nss 1,000 ml @ 100 mls/hr IV . 625 / 625 1675 / 1675 800 / 800
Q10H TERESA Rx#:[id number]
IV piggybacks
Output:
Urine, Menjivar 2350 / 2350 125 / 125
Urine, Voided 350 / 350 700 / 700 600 / 600
Other:
Number of approximated MODERATE 1
amounts of urine
Laboratory Results
06/09/24 05:18
06/09/24 05:18
Physical Exam
-
General - no acute distress
--- NOTE | 2024-06-09 08:07 | PTCARENOTE ---
Addendum entered by Dionne Mario RN 06/09/24 14:42:
wrong pt
Original Note:
07:00 patient seen in bed, does not appear to be in distress or SOB. On 2L oxygen via nasal cannula. Left upper abdominal pain dull like 7 out 10 on pain level scale. AAO x3. Neuro check WNL. Vascular check WNL (see assessment ). BP via Left upper
arm 150/74 MAP 90 SR 82 . POX 94%/2L. RA 87% with in minutes of been on RA while in bed. will encourage Is. Lungs diminished no cough no SOB. Abdomen rounds, Hyperactive Bowel sounds. No BM since admission . Miralex adm. Voiding in urinal without
difficulties and discomfort. will encourage Fluid intake. All peripheral lines capped flushed dressing intake. Tolerating diet well. Dilaudid 2mg PO adm for pain control. Pt's at bedside . Call carranza with reach
--- NOTE | 2024-06-09 09:41 | W.PN.ID1 ---
Date of Service
Date of Service: June 09, 2024
Today's Communication
increased dose of fluconazole
add metro
continue fluconazole for now
encouraged patient to stay at least another day, I would like to see fevers resolve
Assessment / Plan
Obstructive uropathy
Suspected bilateral pyelonephritis
Possible Proctitis
Candiduria
Leukocytosis
Fever
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
Asthma
GERD
Dyslipidemia
Migraines
Endometriosis
Diverticulitis
Recommendations:
note relapse of fever
no gram negatives with second urine culture
yeast in presumptively c albicanns
QTc 412, recheck in AM
can continue ceftriaxone, add metronidazole for now given concern for proctitis
increased diflucan to 400 mg p.o. once, then 200 mg po qday
Monitor white count and temperature curve.
Further recommendations as additional data has returned.
At present, no way to know whether stents are colonized. Following a tentative 10 to 14-day course of Diflucan, Dr Walton counseled patient to maintain good fluid intake to decrease overall urinary bioburden.
Chief Complaint
-: Fever and UTI (pyelonephritis)
Subjective / Review of Systems
tmax 100.6 overnight
bp stable
upset about: being given tylenol with codeine, nausea, and concerned about maybe moving to semi-private room
acknowledges fever and nausea with vomiting overnight
frustrated, shares shes had multiple admissions since Sep
Vital Signs / Physical Exam
Vital Signs
Vital Signs
Temp Pulse Resp BP Pulse Ox
100.6 F H 116 17 139/70 95
06/09/24 07:00 06/09/24 07:00 06/08/24 15:27 06/09/24 05:31 06/08/24 20:00
Physical Exam
Constitutional: No Acute Distress
Cardiovascular: Regular Rate and S1/S2; Negative Murmur or Rub
Pulmonary: Clear and Symmetric; Negative Wheezes or Rales
Gastrointestinal: Soft, Non Tender, Non Distended and Normal Bowel Sounds
Genito-Urinary: Negative Suprapubic Tenderness or CVA Tenderness
Skin: Warm and Dry; Negative Rash or Jaundice
Objective Data
Lab Data
Lab Results
06/09/24 05:18
06/09/24 05:18
Estimated Creat Clear 59 ml/min 06/09/24 05:18
Lactic Acid Cancelled 06/06/24 20:15
Total Bilirubin 0.4 mg/dl (0.2-1.3) 06/06/24 16:09
AST 16 U/L (14-36) 06/06/24 16:09
ALT 11 U/L (0-35) 06/06/24 16:09
Alkaline Phosphatase 105 U/L (38-126) 06/06/24 16:09
Most recent labs reviewed not increased wbc count, new thrombocytosis
Micro Results:
06/07/24 13:18 Urine Culture - Preliminary
Urine Yeast
06/06/24 17:24 Urine Culture - Final
Urine Angie albicans
06/06/24 16:09 Influenza Types A & B (YUDITH) - Final
Nasal Swab Negative for Influenza A & B, NAAT
Negative results must be combined with clinical observations
and patient history.
Nucleic Acid Amplification test (NAAT)performed on the
[employer] platform.
Imaging:
06/06/2024 CT abdomen/pelvis without contrast: There is moderate acute bilateral hydroureteronephrosis secondary to bilateral obstructing calculi at the ureterovesical junctions. There is severe circumferential wall thickening in the rectum
suspicious for acute proctitis. Patient is status post sigmoidectomy. There is severe diverticulosis in the distal descending colon. Moderate diffuse hepatic steatosis is noted.
[2024-06-09] MEDS: PROTONIX 40 MG PO (09:43)
[2024-06-09] MEDS: DIFLUCAN 100 MG PO (09:43)
[2024-06-09] MEDS: HEPARIN 5000 UNITS SC ×2 (09:43→20:09)
[2024-06-09] MEDS: FLOMAX 0.4 MG PO (09:43)
--- NOTE | 2024-06-09 12:42 | PTCARENOTE ---
Attempted to give rectal Tylenol. Was not able to administer due to high level of anxiety . New order for [facility] ordered
[2024-06-09] MEDS: OFIRMEV 100 IV ×2 (12:56→20:09)
[2024-06-09 13:14] VITALS: BP 112/70
--- NOTE | 2024-06-09 13:24 | W.PN.HOSP.TC ---
Today's Communication/Plan
-
Patient appearing to be doing worse today with fevers, nausea, unable to take PO
Appreciate ID -- dosage of Diflucan increased and Metronidazole added
Nurse mentioned patient cannot do PO Tylenol or rectal Tylenol either, requested IV Tylenol which was ordered
Discussed case with urology and will order repeat CT Abdomen Pelvis
Assessment / Plan
Assessment / Plan
Physical Exam
General: Mild distress due to nausea
HEENT: Normocephalic
Respiratory: CTAB
Cardiac: S1/S2 and Regular Rhythm. Tachycardia
GI: Soft, Non Tender, Non Distended and Normal Bowel Sounds
Musculoskeletal: No Cyanosis and No Edema
Skin: Warm. Dry.
Neuro: AAO x 3 and Nonfocal/grossly intact
Psych: Calm
Assessment/Plan
59 y/o female with past medical history significant for complicated diverticular disease status post recent robotic sigmoid resection who presented to the [facility] Emergency Department complaining of flank pain with radiation into the
abdomen, fevers/chills, malaise and anorexia. Symptoms have been present / progressive for about 1 week or so prior to arrival. She had been taking Motrin around the clock at home with minimal improvement in her symptoms. She presented to the ED
for further evaluation and treatment. Evaluation in the ED revealed bilateral ureteral stones with perinephric stranding / hydronephrosis.
#Concern for Bilateral Pyelonephritis/Complicated UTI
#Bilateral Ureteral Stones with Obstructive Uropathy and B/L Hydronephrosis status post right ureteroscopic laser lithotripsy with stone manipulation, placement bilateral ureteral stents on 06/07/24
#Fever/chills likely due to UTI/bilateral hydro and obstructing calculus
#Sepsis Secondary to Complicated UTI
-CT abdomen pelvis as per radiologist's report with MODERATE ACUTE BILATERAL HYDROURETERONEPHROSIS secondary to (1) a 3.4 mm obstructing calculus at the right ureterovesical junction and (2) a 5.7 mm obstructing calculus in the left mid to distal
ureter. Severe circumferential wall thickening in the rectum suspicious for an acute proctitis. Previous sigmoidectomy. Severe diverticulosis in the distal descending colon. Moderate diffuse hepatic steatosis. Previous
cholecystectomy.Moderate-sized hiatal hernia.
-Continue IV ceftriaxone
-Diflucan 100 mg p.o. daily initially started --> now being increased due to fevers and nausea
-Metronidazole was added on 06/09/24 due to patient's fevers and nausea
-Urine culture growing Angie
-Strain urine
-Urology consulted, appreciate their evaluation and recommendations: they are recommending medical support, after patient felt better on 06/08/24, now she is feeling worse --> have asked urology whether her stents
need to be re-imaged: recommendation for non contrast abd/ pelvis ct to make sure hydro gone- stents ok
-ID consulted, appreciate their evaluation and recommendations
#Severe Circumferential Wall Thickening in Rectum Suspicious for an Acute Proctitis, as per radiologist's report
#Severe Diverticulosis
#History of Sigmoidectomy
-Consulted colorectal surgery, appreciate their evaluation and recommendations: as per colorectal surgery, the proctitis on imaging is of questionable significance and is in their opinion is likely just postoperative edema
#acute kidney injury (RESOLVED)/anion gap metabolic acidosis likely secondary to urinary tract obstruction
-Monitor BMP
# Recurrent diverticulitis with abscess
-Status post robotic sigmoidectomy with cystorrhaphy and removal of misplaced perc pelvic drain
#HXT of asthma
-patient not in acute exacerbation
-nebs from home continued
-Singular continued
# Anxiety / Depression
-Lorazepam continued
# GERD
-Pantoprazole continued
#Moderate Diffuse Hepatic Steatosis on CT Imaging
# Complicated Diverticulitis s/p Sigmoid Resection (04/2024)
# Bladder Perforation (misplaced drain) s/p Repair
# Asthma without Acute Exacerbation
# DVT prophylaxis
-Heparin Subq
#CODE status
-full code
Anticipated Discharge: > 48 hours
Subjective/Interval History
-
Date of Service: June 09, 2024
Patient was seen and examined. She reported feeling worse today, with nausea, unable to take at least some of her medications.
Objective Data
-
Labs:
Laboratory Results
06/09/24
05:18
WBC 13.1 H
Hgb 10.5 L
Hct 30.5 L
Plt Count 416 H D
Sodium 143
Potassium 4.0
Chloride 107
Carbon Dioxide 21 L
BUN 17
Creatinine 0.9
Glucose 129 H
Calcium 9.1
Vital Signs:
Vital Signs
Temp Pulse Resp BP Pulse Ox
101.0 F H 108 17 112/70 95
06/09/24 11:00 06/09/24 13:14 06/08/24 15:27 06/09/24 13:14 06/08/24 20:00
I&O
06/08/24 06/09/24 06/10/24
06:59 06:59 06:59
Intake Total 1685 / 1685 1400 / 1400 480 / 480
Output Total 3050 / 3050 725 / 725 550 / 550
Balance -1365 / -1365 675 / 675 -70 / -70
--- NOTE | 2024-06-09 13:25 | PTCARENOTE ---
Unable to verify VS until 1300 when I took over for this patient.
--- NOTE | 2024-06-09 13:30 | PTCARENOTE ---
Pt would not take any PO meds states she is too nauseous to take them. TT sent to Dr Portillo and Dr Jamil. IV compazine ordered PRN between PRN zofran doses. IV flagyl and IV diflucan ordered since she is not taking PO.
--- NOTE | 2024-06-09 13:46 | W.PN.UPDATE ---
Update Note
Progress Note Update
patient refused oral fluconazole
the additional doses are important
I have discussed with RN and switched to IV
metronidazole also switched to IV
[2024-06-09] MEDS: NSS 1000 IV (14:00)
[2024-06-09] MEDS: COMPAZINE 5 MG IV (14:00)
[2024-06-09] MEDS: FLAGYL 500 MG 100 IV (14:03)
--- NOTE | 2024-06-09 14:19 | PTCARENOTE ---
Addendum entered by Vandana Green RN 06/09/24 14:24:
Patient temp 99.8 after IV ofirmev given. Pt still hot to touch, ice pack given.
Original Note:
Assumed care of patient at aprox 1300 today. Pt vitals stable. Pt with temp and ST on monitor.
[2024-06-09 15:06] VITALS: BP 111/69
[2024-06-09] MEDS: DIFLUCAN 200 MG 100 IV (15:09)
--- NOTE | 2024-06-09 16:12 | PTCARENOTE ---
Pt taken down to CT by me. Pt still with nausea. Vitals remain stable. Daughter in room.
[2024-06-09] MEDS: DIFLUCAN 200 MG 50 MG IV (17:04)
--- NOTE | 2024-06-09 19:05 | PTCARENOTE ---
[facility] 1715: Telephone order received from Dr Rivera due to Ct results of hydronephrosis. #16 menjivar cath placed without difficulty.
[2024-06-09 20:48] VITALS: BP 134/62
[2024-06-09] MEDS: ROCEPHIN 1000 MG IV (21:10)
[2024-06-09] MEDS: STERILE WATER FOR INJECTION 10 ML IV (21:10)
[2024-06-09] MEDS: SINGULAIR PO (21:34)
[2024-06-09] MEDS: MELATONIN PO (21:34)
[2024-06-09 22:15] LABS: Blood Urea Nitrogen 12 mg/dl (7-17); Calcium 8.8 mg/dl (8.4-10.2); Carbon Dioxide 22 mmol/L (22-30); Chloride 103 mmol/L (98-107); Estimated Creatinine Clearance 53 ml/min; Glucose 122 mg/dl (70-99); Sodium 137 mmol/L (135-145); eGFR > 60.00
[2024-06-10] VITALS (10 sets, daily range): BP systolic 109–152; BP diastolic 57–87
[2024-06-10] MEDS: NSS 1000 IV ×2 (02:28→21:40)
[2024-06-10] MEDS: FLAGYL 500 MG 100 IV ×2 (02:28→13:40)
[2024-06-10] MEDS: ZOFRAN 4 MG IV ×4 (02:28→22:39)
--- NOTE | 2024-06-10 02:40 | PTCARENOTE ---
Intermittent nausea overnight. Compazine frequency adjusted as per pharmacy recommendation. Pt resting comfortably. Will monitor.
[2024-06-10 02:43] LABS: Hemoglobin 9.9 g/dL (12.0-16.0); Mean Corp Hgb Conc. 35.4 g/dL (33.0-37.0); Mean Corpuscular Hgb 30.7 pg (27.0-31.0); Mean Corpuscular Volume 86.7 fL (81.0-99.0); Mean Platelet Volume 8.5 fL (7.4-10.4); Platelet Count 341 10^3/uL (130-400); Red Blood Cell Count 3.23 10^6/uL (4.20-5.40); White Blood Cell Count 12.2 10^3/uL (4.8-10.8)
[2024-06-10 02:58] LABS: Blood Urea Nitrogen 12 mg/dl (7-17); Calcium 8.7 mg/dl (8.4-10.2); Carbon Dioxide 22 mmol/L (22-30); Chloride 105 mmol/L (98-107); Estimated Creatinine Clearance 59 ml/min; Glucose 111 mg/dl (70-99); Potassium 2.9 mmol/L (3.5-5.1); Sodium 139 mmol/L (135-145); eGFR > 60.00
[2024-06-10] MEDS: OFIRMEV 100 IV (03:00)
[2024-06-10] MEDS: KCL 270 MEQ IV ×2 (04:51→22:35)
--- NOTE | 2024-06-10 08:35 | W.PN.HOSP.TC ---
Today's Communication/Plan
-
Continue antibiotics and Fluconazole
Continue to monitor for fevers
Still very nauseous -- if symptoms do not improve in the next 24 to 48 hours, patient will need re-imaging with Dawn catheter in place to see if hydro has resolved
Assessment / Plan
Assessment / Plan
Physical Exam
General: Mild distress due to nausea
HEENT: Normocephalic
Respiratory: CTAB
Cardiac: S1/S2 and Regular Rhythm. Regular Rate.
GI: Soft, Non Tender, Non Distended and Normal Bowel Sounds
Musculoskeletal: No Cyanosis and No Edema
Skin: Warm. Dry.
Neuro: AAO x 3 and Nonfocal/grossly intact
Psych: Calm
Assessment/Plan
59 y/o female with past medical history significant for complicated diverticular disease status post recent robotic sigmoid resection who presented to the [facility] Emergency Department complaining of flank pain with radiation into the
abdomen, fevers/chills, malaise and anorexia. Symptoms have been present / progressive for about 1 week or so prior to arrival. She had been taking Motrin around the clock at home with minimal improvement in her symptoms. She presented to the ED
for further evaluation and treatment. Evaluation in the ED revealed bilateral ureteral stones with perinephric stranding / hydronephrosis.
#Concern for Bilateral Pyelonephritis/Complicated UTI
#Bilateral Ureteral Stones with Obstructive Uropathy and B/L Hydronephrosis status post right ureteroscopic laser lithotripsy with stone manipulation, placement bilateral ureteral stents on 06/07/24
#Fever/chills likely due to UTI/bilateral hydro and obstructing calculus
#Sepsis Secondary to Complicated UTI
-CT abdomen pelvis as per radiologist's report with MODERATE ACUTE BILATERAL HYDROURETERONEPHROSIS secondary to (1) a 3.4 mm obstructing calculus at the right ureterovesical junction and (2) a 5.7 mm obstructing calculus in the left mid to distal
ureter. Severe circumferential wall thickening in the rectum suspicious for an acute proctitis. Previous sigmoidectomy. Severe diverticulosis in the distal descending colon. Moderate diffuse hepatic steatosis. Previous
cholecystectomy.Moderate-sized hiatal hernia.
-Urine culture growing Angie albicans
-Continue IV ceftriaxone
-Diflucan 100 mg p.o. daily initially started --> dose was increased on 06/10/24 due to fevers and nausea --> continue Diflucan 200 mg PO daily
-Metronidazole was added on 06/09/24 due to patient's fevers and nausea; continue
-Strain urine
-Urology consulted, appreciate their evaluation and recommendations: they are recommending medical support, after patient felt better on 06/08/24, now she is feeling worse --> repeat CT imaging as per urology showed
still some hydronephrosis probably due to bladder distention and urine reflux as per urology
-ID consulted, appreciate their evaluation and recommendations
#Severe Circumferential Wall Thickening in Rectum Suspicious for an Acute Proctitis, as per radiologist's report
#Severe Diverticulosis
#History of Sigmoidectomy
-Consulted colorectal surgery, appreciate their evaluation and recommendations: as per colorectal surgery, the proctitis on imaging is of questionable significance and is in their opinion is likely just postoperative edema
#acute kidney injury (RESOLVED)/anion gap metabolic acidosis likely secondary to urinary tract obstruction
-Monitor BMP
# Recurrent diverticulitis with abscess
-Status post robotic sigmoidectomy with cystorrhaphy and removal of misplaced perc pelvic drain
#History of asthma
-patient not in acute exacerbation
-nebs from home continued
-Singular continued
# Anxiety / Depression
-Lorazepam continued
# GERD
-Pantoprazole continued
#Moderate Diffuse Hepatic Steatosis on CT Imaging
# Complicated Diverticulitis s/p Sigmoid Resection (04/2024)
# Bladder Perforation (misplaced drain) s/p Repair
# Asthma without Acute Exacerbation
# DVT prophylaxis
-Heparin Subq
#CODE status
-full code
Anticipated Discharge: > 48 hours
Subjective/Interval History
-
Date of Service: June 10, 2024
Patient was seen and examined. She reported no vomiting today, but she is still nauseous.
Objective Data
-
Labs:
Laboratory Results
06/09/24 06/09/24 06/10/24
20:51 21:43 02:30
WBC 12.2 H
Hgb 9.9 L
Hct 28.0 L
Plt Count 341
Sodium Cancelled 137 139
Potassium Cancelled 3.0 L 2.9 L
Chloride Cancelled 103 105
Carbon Dioxide Cancelled 22 22
BUN Cancelled 12 12
Creatinine Cancelled 1.0 0.9
Glucose Cancelled 122 H 111 H
Calcium Cancelled 8.8 8.7
06/10/24
10:00
WBC
Hgb
Hct
Plt Count
Sodium Pending
Potassium Pending
Chloride Pending
Carbon Dioxide Pending
BUN Pending
Creatinine Pending
Glucose Pending
Calcium Pending
Vital Signs:
Vital Signs
Temp Pulse Resp BP Pulse Ox
99.8 F 87 19 125/67 94
06/10/24 02:35 06/10/24 08:00 06/10/24 08:00 06/10/24 08:00 06/09/24 23:13
I&O
06/09/24 06/10/24 06/11/24
06:59 06:59 06:59
Intake Total 1400 / 1400 2930 / 2930
Output Total 725 / 725 1710 / 1710
Balance 675 / 675 1220 / 1220
[2024-06-10] MEDS: HEPARIN 5000 UNITS SC ×2 (08:49→19:32)
--- NOTE | 2024-06-10 09:26 | W.PN.URO.CBU ---
Today's Communication / Plan
-
continue menjivar/stents and iv anti-fungals
Assessment / Plan
-
Bilateral obstructing ureteral stones s/p bilateral JJ stent placement 06/07/24
Angie in urine
KELLIE: resolved
infectious parameters somewhat improved today
yesterday had f/u ct- stents both well positioned with stones along side them- some persistent left hydro- but this was felt to be due to bladder distention and reflux rather than occluded stent- so menjivar was placed
doesnt feel better today- but so far afebrile
will continue medical therapy- if no improvement in next 24-48hrs will re-image with menjivar in place to see if hydro has resolved
Diagnosis
-
Date of Service: June 10, 2024
-
Patient Diagnosis:
Bilateral partially obstructing bilateral ureteral stones: s/p bilateral JJ stent placement 06/07/24
Abdominal pain
KELLIE
Fungal UTI
---
s/p robotic partial sigmoidectomy with cystorrhaphy/removal of errant percutaneous drain 05/04/24
Subjective
-
pt still c/o of nausea
as of this am- afebrile for almost 24hrs
wbc trending down
Objective
-
Vital Signs
Temp Pulse Resp BP Pulse Ox
98.1 F 87 19 125/67 94
06/10/24 07:35 06/10/24 08:00 06/10/24 08:00 06/10/24 08:00 06/09/24 23:13
Intake and Output
06/09/24 06/10/24 06/11/24
06:59 06:59 06:59
Intake Total 1400 / 1400 2930 / 2930 250 / 250
Output Total 725 / 725 1710 / 1710 600 / 600
Balance 675 / 675 1220 / 1220 -350 / -350
Intake:
Oral fluids 600 / 600 480 / 480
IV fluids (Total) 800 / 800 1800 / 1800 150 / 150
Nss 1,000 ml @ 100 mls/hr IV . 800 / 800 1800 / 1800 150 / 150
Q10H TERESA Rx#:[id number]
IV piggybacks 650 / 650 100 / 100
Output:
Emesis 100 / 100
Urine, Menjivar 125 / 125 960 / 960 600 / 600
Urine, Voided 600 / 600 650 / 650
Other:
Number of approximated MODERATE 1
amounts of urine
Laboratory Results
06/10/24 02:30
Review of Systems
-
Constitutional: Fatigue
Respiratory: No Symptoms
Cardiac: No Symptoms
Abdomen/GI: Nausea
: Other (menjivar)
Physical Exam
-
General - ill appearing, but NAD
Abdomen - soft, non-tender
Genitalia - cath in place
--- NOTE | 2024-06-10 09:47 | W.PN.ID1 ---
Date of Service
Date of Service: June 10, 2024
Today's Communication
continue fluconazole
continue ctx/metro for now
Assessment / Plan
Obstructive uropathy
Suspected bilateral pyelonephritis
Possible Proctitis
Candiduria
Leukocytosis
Fever
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
Asthma
GERD
Dyslipidemia
Migraines
Endometriosis
Diverticulitis
Recommendations:
urine culture: c albicans x2
QTc [address]: persistent hydro felt to be related to bladder outlet obstruction and menjivar placed
can continue ceftriaxone, metronidazole for now given concern for proctitis 06/06 ct, note resolution on noncontrast ct 06/09
had loading dose of diflucan 400 mg 06/09, now 200 mg po qday
Monitor white count and temperature curve.
Further recommendations as additional data has returned.
At present, no way to know whether stents are colonized. Following a tentative 10 to 14-day course of Diflucan, Dr Walton counseled patient to maintain good fluid intake to decrease overall urinary bioburden.
Chief Complaint
-: Fever and UTI (pyelonephritis)
Subjective / Review of Systems
no further fevers
bp stable
nausea noted overnight
Vital Signs / Physical Exam
Vital Signs
Vital Signs
Temp Pulse Resp BP Pulse Ox
98.1 F 87 19 125/67 94
06/10/24 07:35 06/10/24 08:00 06/10/24 08:00 06/10/24 08:00 06/09/24 23:13
Physical Exam
Constitutional: No Acute Distress
Cardiovascular: Regular Rate and S1/S2; Negative Murmur or Rub
Pulmonary: Clear and Symmetric; Negative Wheezes or Rales
Gastrointestinal: Soft, Non Tender, Non Distended and Normal Bowel Sounds
Skin: Warm and Dry; Negative Rash or Jaundice
Objective Data
Lab Data
Lab Results
06/10/24 02:30
Estimated Creat Clear 59 ml/min 06/10/24 02:30
Lactic Acid Cancelled 06/06/24 20:15
Total Bilirubin 0.4 mg/dl (0.2-1.3) 06/06/24 16:09
AST 16 U/L (14-36) 06/06/24 16:09
ALT 11 U/L (0-35) 06/06/24 16:09
Alkaline Phosphatase 105 U/L (38-126) 06/06/24 16:09
Most recent labs reviewed.
Micro Results:
06/07/24 13:18 Urine Culture - Final
Urine Angie albicans
06/06/24 17:24 Urine Culture - Final
Urine Angie albicans
06/06/24 16:09 Influenza Types A & B (YUDITH) - Final
Nasal Swab Negative for Influenza A & B, NAAT
Negative results must be combined with clinical observations
and patient history.
Nucleic Acid Amplification test (NAAT)performed on the
[employer] platform.
Imaging:
06/09 CT a/p: mod/severe pelvicaliceal and ureteral dilation without change on the L; on the R with improvement
also fatty liver
06/06/2024 CT abdomen/pelvis without contrast: There is moderate acute bilateral hydroureteronephrosis secondary to bilateral obstructing calculi at the ureterovesical junctions. There is severe circumferential wall thickening in the rectum
suspicious for acute proctitis. Patient is status post sigmoidectomy. There is severe diverticulosis in the distal descending colon. Moderate diffuse hepatic steatosis is noted.
[2024-06-10] MEDS: FLOMAX 0.4 MG PO (11:04)
[2024-06-10] MEDS: PROTONIX 40 MG PO (11:04)
[2024-06-10] MEDS: COMPAZINE 5 MG IV ×2 (11:04→19:33)
[2024-06-10] MEDS: DIFLUCAN 200 MG PO (11:04)
[2024-06-10 11:15] LABS: Blood Urea Nitrogen 12 mg/dl (7-17); Calcium 8.7 mg/dl (8.4-10.2); Carbon Dioxide 21 mmol/L (22-30); Chloride 106 mmol/L (98-107); Estimated Creatinine Clearance 53 ml/min; Glucose 115 mg/dl (70-99); Magnesium 1.7 mg/dl (1.6-2.3); Potassium 3.3 mmol/L (3.5-5.1); Sodium 139 mmol/L (135-145); eGFR > 60.00
--- NOTE | 2024-06-10 13:47 | PTCARENOTE ---
Pt w/ persistent nausea. Able to hold down PO meds and small amount of fluids w/ compazine on board.
[2024-06-10] MEDS: MAGNESIUM SULFATE 102 GRAMS IV (16:24)
[2024-06-10] MEDS: KCL 40 MEQ PO (16:24)
--- NOTE | 2024-06-10 17:56 | PTCARENOTE ---
Nausea still present but improved. Tolerated clears for lunch. Tolerated taking PO potassium.
--- NOTE | 2024-06-10 20:00 | PTCARENOTE ---
resumed care of pt laying in bed with daughter at bedside. Pt AAOx3, flat affect, tearful, complaining of nausea. PRN Nausea medication administered as ordered. HR in the 80's in NSR on the monitor. POX 97% on RA. Lungs clear, occ. cough. + bowel.
Pt had loose bm in bathroom. Dawn in place and strained per MD order. No particles see at this time. 3 lap sites scabbed, open to air. Palpable peripheral pulses present. Knee high seq in place. Right wrist int infusing NSS@75ml/hr. Right AC int
capped. Call carranza in reach. Will continue to monitor.
[2024-06-10 21:21] LABS: Blood Urea Nitrogen 10 mg/dl (7-17); Calcium 8.3 mg/dl (8.4-10.2); Carbon Dioxide 23 mmol/L (22-30); Chloride 105 mmol/L (98-107); Estimated Creatinine Clearance 66 ml/min; Glucose 98 mg/dl (70-99); Potassium 3.2 mmol/L (3.5-5.1); Sodium 139 mmol/L (135-145); eGFR > 60.00
[2024-06-10] MEDS: ROCEPHIN 1000 MG IV (21:46)
[2024-06-10] MEDS: STERILE WATER FOR INJECTION 10 ML IV (21:46)
[2024-06-10] MEDS: SINGULAIR 10 MG PO (21:47)
[2024-06-10] MEDS: MELATONIN PO (21:48)
--- NOTE | 2024-06-10 22:00 | PTCARENOTE ---
Reviewed lab results with Huma WILBURN, orders obtained. K Markus now infusing as ordered. Pt given Zofran for nausea. IVF infusing as ordered. Daughter sleeping at bedside. Will continue to monitor.
[2024-06-10] MEDS: ATIVAN 0.5 MG PO (22:33)
[2024-06-10] MEDS: NSS with KCL 20 MEQ 1000 IV (22:36)
[2024-06-11] VITALS (13 sets, daily range): BP systolic 119–164; BP diastolic 62–112; BMI 19.7
[2024-06-11] MEDS: FLAGYL 500 MG 100 IV (02:03)
[2024-06-11 05:28] LABS: % Basophils 0.4 % (0-2); % Eosinophils 0.8 % (0-6); % Lymphocytes 12.2 % (20.5-51.1); % Monocytes 5.2 % (1.7-9.3); % Neutrophils 80.4 % (42.2-75.2); Absolute Basophils 0.1 10^3/uL (0-0.2); Absolute Eosinophils 0.1 10^3/uL (0-0.7); Absolute Immature Granulocytes 0.1 10^3/uL (0-0.05); Absolute Lymphocytes 1.4 10^3/uL (1.2-3.4); Absolute Monocytes 0.6 10^3/uL (0.1-0.6); Absolute Neutrophils 9.2 10^3/uL (1.4-6.5); Hematocrit 27.6 % (37.0-47.0); Hemoglobin 9.8 g/dL (12.0-16.0); Mean Corp Hgb Conc. 35.5 g/dL (33.0-37.0); Mean Corpuscular Hgb 30.8 pg (27.0-31.0); Mean Corpuscular Volume 86.8 fL (81.0-99.0); Mean Platelet Volume 8.5 fL (7.4-10.4); Nucleated Red Blood Cells % 0 %; Platelet Count 388 10^3/uL (130-400); Red Blood Cell Count 3.18 10^6/uL (4.20-5.40); Red Cell Dist. Width 13.2 % (11.5-14.5); White Blood Cell Count 11.4 10^3/uL (4.8-10.8)
[2024-06-11] MEDS: ZOFRAN 4 MG IV ×3 (05:33→19:46)
[2024-06-11 06:02] LABS: Blood Urea Nitrogen 8 mg/dl (7-17); Calcium 8.5 mg/dl (8.4-10.2); Carbon Dioxide 20 mmol/L (22-30); Chloride 107 mmol/L (98-107); Estimated Creatinine Clearance 65 ml/min; Glucose 117 mg/dl (70-99); Potassium 3.7 mmol/L (3.5-5.1); Sodium 138 mmol/L (135-145); eGFR > 60.00
--- NOTE | 2024-06-11 07:00 | PTCARENOTE ---
received patient at change of shift. AAOX3. denies pain. intermittent nausea noted. NSR on telemetry heart rate 80-90s. pulses palpable, no edema. pt on room air. sat 95%. lung sounds clear. hypoactive bowel sounds. ambulated to bathroom with
standby assist. pt had loose bowel movement. menjivar draining cloudy urine with some sediment. 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 see worklist for full nursing assessment and interventions. pt updated on plan of care.
--- NOTE | 2024-06-11 07:05 | W.PN.URO.CBU ---
Today's Communication / Plan
-
continue menjivar and stents
track fever curve and wbc
Assessment / Plan
-
Bilateral obstructing ureteral stones s/p bilateral JJ stent placement 06/07/24
Angie in urine
KELLIE: resolved
infectious parameters somewhat improved today
yesterday had f/u ct- stents both well positioned with stones along side them- some persistent left hydro- but this was felt to be due to bladder distention and reflux rather than occluded stent- so menjivar was placed
will continue medical therapy- and observe
Diagnosis
-
Date of Service: June 11, 2024
-
Patient Diagnosis:
Bilateral partially obstructing bilateral ureteral stones: s/p bilateral JJ stent placement 06/07/24
Abdominal pain
KELLIE
Fungal UTI
---
s/p robotic partial sigmoidectomy with cystorrhaphy/removal of errant percutaneous drain 05/04/24
Subjective
-
pt asleep
wbc and fever trending down
Objective
-
Vital Signs
Temp Pulse Resp BP Pulse Ox
99.8 F 90 27 139/71 92
06/11/24 04:00 06/11/24 06:00 06/11/24 06:00 06/11/24 06:00 06/11/24 06:00
Intake and Output
06/10/24 06/11/24 06/12/24
06:59 06:59 06:59
Intake Total 2930 / 2930 2485.0 / 2485.0
Output Total 1710 / 1710 2425 / 2425
Balance 1220 / 1220 60.0 / 60.0
Intake:
Oral fluids 480 / 480 480 / 480
IV fluids (Total) 1800 / 1800 1500 / 1500
NSS with KCL 20 MEQ 20 meq In 1 900 / 900
,000 ml @ 75 mls/hr IV .[id number]
TERESA Rx#:[id number]
Nss 1,000 ml @ 100 mls/hr IV . 1800 / 1800 600 / 600
Q10H TERESA Rx#:[id number]
IV piggybacks 650 / 650 505.0 / 505.0
Output:
Emesis 100 / 100
Urine, Menjivar 960 / 960 2425 / 2425
Urine, Voided 650 / 650
Laboratory Results
06/11/24 05:15
06/11/24 05:15
Physical Exam
-
General - no acute distress
[2024-06-11] MEDS: DIFLUCAN 200 MG PO (08:17)
[2024-06-11] MEDS: HEPARIN 5000 UNITS SC ×2 (08:17→19:46)
[2024-06-11] MEDS: FLOMAX 0.4 MG PO (08:17)
[2024-06-11] MEDS: PROTONIX 40 MG PO (08:17)
--- NOTE | 2024-06-11 10:10 | W.PN.HOSP.TC ---
Today's Communication/Plan
-
Continue with nausea medication. Consider holding ceftriaxone and Flagyl and follow GI symptoms.
Transfer to [facility]
Assessment / Plan
Assessment / Plan
Assessment/Plan
59 y/o female with past medical history significant for complicated diverticular disease status post recent robotic sigmoid resection who presented to the [facility] Emergency Department complaining of flank pain with radiation into the
abdomen, fevers/chills, malaise and anorexia. Symptoms have been present / progressive for about 1 week or so prior to arrival. She had been taking Motrin around the clock at home with minimal improvement in her symptoms. She presented to the ED
for further evaluation and treatment. Evaluation in the ED revealed bilateral ureteral stones with perinephric stranding / hydronephrosis.
# Fever chills with obstructing stones-CT scan showed bilateral hydronephrosis for which she had successful placement of the stents. She denies any flank pain. She has candiduria. Unclear if there is pyelonephritis but cannot exclude. Treat is 1.
#Bilateral Ureteral Stones with Obstructive Uropathy and B/L Hydronephrosis status post right ureteroscopic laser lithotripsy with stone manipulation, placement bilateral ureteral stents on 06/07/24
#Fever/chills likely due to UTI/bilateral hydro and obstructing calculus
#Sepsis Secondary to Complicated UTI
-CT abdomen pelvis as per radiologist's report with MODERATE ACUTE BILATERAL HYDROURETERONEPHROSIS secondary to (1) a 3.4 mm obstructing calculus at the right ureterovesical junction and (2) a 5.7 mm obstructing calculus in the left mid to distal
ureter. Severe circumferential wall thickening in the rectum suspicious for an acute proctitis. Previous sigmoidectomy. Severe diverticulosis in the distal descending colon. Moderate diffuse hepatic steatosis. Previous
cholecystectomy.Moderate-sized hiatal hernia.
-Urine culture growing Angie albicans
-On IV ceftriaxone and Flagyl for possible proctitis but patient is without any symptoms of proctitis.
-Continue Diflucan
-Urology consulted, appreciate their evaluation and recommendations: they are recommending medical support, after patient felt better on 06/08/24, now she is feeling worse --> repeat CT imaging as per urology showed
still some hydronephrosis probably due to bladder distention and urine reflux as per urology-Dawn catheter in place
-ID consulted, appreciate their evaluation and recommendations
#Severe Circumferential Wall Thickening in Rectum Suspicious for an Acute Proctitis, as per radiologist's report
#Severe Diverticulosis
#History of Sigmoidectomy
-Consulted colorectal surgery, appreciate their evaluation and recommendations: as per colorectal surgery, the proctitis on imaging is of questionable significance and is in their opinion is likely just postoperative edema. Plus patient does not
have any symptoms of proctitis including rectal pain, tenesmus, no diarrhea.
With the persistent nausea which I cannot exclude secondary to antibiotics or antifungal may be consider stopping antibiotics and see. Nausea symptom. Discussed with ID.
#acute kidney injury (RESOLVED)/anion gap metabolic acidosis likely secondary to urinary tract obstruction
-Monitor BMP
# Recurrent diverticulitis with abscess
-Status post robotic sigmoidectomy with cystorrhaphy and removal of misplaced perc pelvic drain
#History of asthma
-patient not in acute exacerbation
-nebs from home continued
-Singular continued
# Anxiety / Depression
-Lorazepam continued
# GERD
-Pantoprazole continued
#Moderate Diffuse Hepatic Steatosis on CT Imaging
# Complicated Diverticulitis s/p Sigmoid Resection (04/2024)
# Bladder Perforation (misplaced drain) s/p Repair
# Asthma without Acute Exacerbation
# DVT prophylaxis
-Heparin Subq
#CODE status
-full code
Anticipated Discharge: > 48 hours
Subjective/Interval History
-
Date of Service: June 11, 2024
Patient complains of constant nausea. Noted only since hospitalization. Not at home. Denies any GERD symptoms or abdominal pain.
Needing constant Zofran and as needed Compazine.
No emesis.
Objective Data
-
Labs:
Laboratory Results
06/11/24
05:15
WBC 11.4 H
Hgb 9.8 L
Hct 27.6 L
Plt Count 388
Sodium 138
Potassium 3.7
Chloride 107
Carbon Dioxide 20 L
BUN 8
Creatinine 0.8
Glucose 117 H
Calcium 8.5
Vital Signs:
Vital Signs
Temp Pulse Resp BP Pulse Ox
100.1 F 95 25 142/66 93
06/11/24 07:32 06/11/24 08:00 06/11/24 08:00 06/11/24 08:00 06/11/24 08:00
I&O
06/10/24 06/11/24 06/12/24
06:59 06:59 06:59
Intake Total 2930 / 2930 2485.0 / 2560.0 630 / 630
Output Total 1710 / 1710 2425 / 2425 700 / 700
Balance 1220 / 1220 60.0 / 135.0 -70 / -70
Review of Systems
-
Constitutional: Denies Fever or Chills
EENT: Denies Sore Throat
Respiratory: Denies Trouble Breathing
Cardiac: Denies Chest Pain
Abdomen/GI: Denies Abdominal Pain or Diarrhea
Genitourinary: Reports Other (Dawn in place); Denies Flank Pain
Neuro: Denies Dizzy
Physical Exam
-
General: Comfortable
Respiratory: Non Labored Respirations; Negative Accessory Resp Muscle Use
Cardiac: Regular Rhythm and S1/S2
GI: Soft and Nontender
Genito-urinary: No Costovertebral Tender
Neuro: AO x 3
Psych: Calm
Data Reviewed
-
Labs: Labs Reviewed by me
[2024-06-11] MEDS: COMPAZINE 5 MG IV ×2 (10:14→22:35)
--- NOTE | 2024-06-11 11:35 | W.PN.ID1 ---
Date of Service
Date of Service: June 11, 2024
Today's Communication
Continue antibiotics. See below�
Assessment / Plan
Obstructive uropathy
Suspected bilateral pyelonephritis
? Proctitis
- Pt without symptomatology
Candiduria
Leukocytosis
Fever
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
Asthma
GERD
Dyslipidemia
Migraines
Endometriosis
Diverticulitis
Recommendations:
urine culture: C. albicans
QTc [address]: persistent hydro felt to be related to bladder outlet obstruction and menjivar placed
Continue ceftriaxone and fluconazole
Given profound nausea at present, will discontinue further metronidazole. Patient is without symptoms of proctitis.
Monitor white count and temperature curve.
����������������������������������������������������������
Chief Complaint
-: Fever and UTI (pyelonephritis)
Subjective / Review of Systems
Patient seen and examined. Reports significant nausea today. Menjivar catheter remains in place. Patient reports no irritation from it. She denies any rectal pain or discomfort.
Vital Signs / Physical Exam
Vital Signs
Vital Signs
Temp Pulse Resp BP Pulse Ox
100.1 F 97 20 148/81 95
06/11/24 07:32 06/11/24 10:00 06/11/24 10:00 06/11/24 10:00 06/11/24 10:00
Physical Exam
Constitutional: No Acute Distress, Comfortable and Non-toxic
Eyes: Sclera Anicteric
Cardiovascular: S1/S2; Negative S3/S4
Pulmonary: Non Labored
Gastrointestinal: Soft, Non Tender and Non Distended
Genito-Urinary: Menjivar; Negative CVA Tenderness
Extremities: Negative Edema, Cyanosis or Erythema
Neurological: Awake and Alert
Psychological: Calm
Objective Data
Lab Data
Lab Results
06/11/24 05:15
06/11/24 05:15
Estimated Creat Clear 65 ml/min 06/11/24 05:15
Lactic Acid Cancelled 06/06/24 20:15
Total Bilirubin 0.4 mg/dl (0.2-1.3) 06/06/24 16:09
AST 16 U/L (14-36) 06/06/24 16:09
ALT 11 U/L (0-35) 06/06/24 16:09
Alkaline Phosphatase 105 U/L (38-126) 06/06/24 16:09
Most recent labs reviewed.
Micro Results:
06/07/24 13:18 Urine Culture - Final
Urine Angie albicans
06/06/24 17:24 Urine Culture - Final
Urine Angie albicans
06/06/24 16:09 Influenza Types A & B (YUDITH) - Final
Nasal Swab Negative for Influenza A & B, NAAT
Negative results must be combined with clinical observations
and patient history.
Nucleic Acid Amplification test (NAAT)performed on the
[employer] platform.
Imaging:
06/09 CT a/p: mod/severe pelvicaliceal and ureteral dilation without change on the L; on the R with improvement
also fatty liver
06/06/2024 CT abdomen/pelvis without contrast: There is moderate acute bilateral hydroureteronephrosis secondary to bilateral obstructing calculi at the ureterovesical junctions. There is severe circumferential wall thickening in the rectum
suspicious for acute proctitis. Patient is status post sigmoidectomy. There is severe diverticulosis in the distal descending colon. Moderate diffuse hepatic steatosis is noted.
[2024-06-11] MEDS: NSS with KCL 20 MEQ 1000 IV (12:24)
--- NOTE | 2024-06-11 13:00 | PTCARENOTE ---
Dr marley notified of temp of 101.6- tylenol administered per orders
[2024-06-11] MEDS: TYLENOL 650 MG PO (14:05)
[2024-06-11] MEDS: ROCEPHIN 1000 MG IV (21:07)
[2024-06-11] MEDS: STERILE WATER FOR INJECTION 10 ML IV (21:07)
[2024-06-11] MEDS: MELATONIN PO (21:11)
[2024-06-11] MEDS: SINGULAIR PO (21:11)
--- NOTE | 2024-06-11 22:27 | PTCARENOTE ---
pt transferred to 409-2 with all belongings in stable condition- report given to Cameron cuenca RN
[2024-06-11] MEDS: ATIVAN 0.5 MG PO (22:35)
--- NOTE | 2024-06-12 02:18 | PTCARENOTE ---
Pt received from ICU pt oriented to room & call carranza in reach. Pt daughter at bedside.Plan of care continued.
[2024-06-12] MEDS: NSS with KCL 20 MEQ 1000 IV (03:35)
[2024-06-12 06:53] VITALS: BP 141/78
[2024-06-12 08:17] LABS: % Basophils 0.6 % (0-2); % Eosinophils 1.4 % (0-6); % Lymphocytes 19.9 % (20.5-51.1); % Monocytes 9.2 % (1.7-9.3); % Neutrophils 67.9 % (42.2-75.2); Absolute Basophils 0.1 10^3/uL (0-0.2); Absolute Eosinophils 0.1 10^3/uL (0-0.7); Absolute Immature Granulocytes 0.1 10^3/uL (0-0.05); Absolute Lymphocytes 1.7 10^3/uL (1.2-3.4); Absolute Monocytes 0.8 10^3/uL (0.1-0.6); Absolute Neutrophils 5.8 10^3/uL (1.4-6.5); Hematocrit 29.1 % (37.0-47.0); Hemoglobin 10.2 g/dL (12.0-16.0); Mean Corp Hgb Conc. 35.1 g/dL (33.0-37.0); Mean Corpuscular Hgb 30.5 pg (27.0-31.0); Mean Corpuscular Volume 87.1 fL (81.0-99.0); Mean Platelet Volume 8.7 fL (7.4-10.4); Nucleated Red Blood Cells % 0 %; Platelet Count 405 10^3/uL (130-400); Red Blood Cell Count 3.34 10^6/uL (4.20-5.40); Red Cell Dist. Width 13.1 % (11.5-14.5); White Blood Cell Count 8.6 10^3/uL (4.8-10.8)
[2024-06-12 08:54] LABS: Blood Urea Nitrogen 6 mg/dl (7-17); Calcium 8.9 mg/dl (8.4-10.2); Carbon Dioxide 23 mmol/L (22-30); Chloride 103 mmol/L (98-107); Estimated Creatinine Clearance 74 ml/min; Glucose 110 mg/dl (70-99); Potassium 3.3 mmol/L (3.5-5.1); Sodium 141 mmol/L (135-145); eGFR > 60.00
[2024-06-12] MEDS: PROTONIX 40 MG PO (09:34)
[2024-06-12] MEDS: FLOMAX 0.4 MG PO (09:34)
[2024-06-12] MEDS: DIFLUCAN 200 MG PO (09:34)
[2024-06-12] MEDS: HEPARIN 5000 UNITS SC (09:34)
--- NOTE | 2024-06-12 10:51 | W.PN.URO.CBU ---
Today's Communication / Plan
-
Cleared for discharge with Dawn from standpoint
Discussed with Hospitalist and Infectious disease
Assessment / Plan
-
Bilateral obstructing ureteral stones s/p bilateral JJ stent placement 06/07/24
Angie in urine
KELLIE: resolved
infectious parameters again improved today
Diagnosis
-
Date of Service: June 12, 2024
-
Patient Diagnosis:
Bilateral partially obstructing bilateral ureteral stones: s/p bilateral JJ stent placement 06/07/24
Abdominal pain
KELLIE
Fungal UTI
---
s/p robotic partial sigmoidectomy with cystorrhaphy/removal of errant percutaneous drain 05/04/24
Subjective
-
Feels well
No significant catheter bother
No flank pain
Objective
-
Vital Signs
Temp Pulse Resp BP Pulse Ox
98.4 F 84 22 141/78 96
06/12/24 06:53 06/12/24 06:53 06/12/24 06:53 06/12/24 06:53 06/12/24 06:53
Intake and Output
06/11/24 06/12/24 06/13/24
06:59 06:59 06:59
Intake Total 2485.0 / 2560.0 1855 / 1855
Output Total 2425 / 2425 3700 / 3700
Balance 60.0 / 135.0 -1845 / -1845
Intake:
Oral fluids 480 / 480 480 / 480
IV fluids (Total) 1500 / 1575 1375 / 1375
NSS with KCL 20 MEQ 20 meq In 1 900 / 975 975 / 975
,000 ml @ 75 mls/hr IV .[id number]
TERESA Rx#:[id number]
Nss 1,000 ml @ 100 mls/hr IV . 600 / 600
Q10H TERESA Rx#:[id number]
IV piggybacks 505.0 / 505.0
Output:
Urine, Dawn 2425 / 2425 3700 / 3700
Laboratory Results
06/12/24 07:55
06/12/24 07:55
Review of Systems
-
Constitutional: No Symptoms
Respiratory: No Symptoms
Cardiac: No Symptoms
Neurological: No Symptoms
Physical Exam
-
General - well developed, well nourished, no acute distress
Abdomen - soft, non-tender
Genitalia - normal with Dawn draining clear urine
Counseling
-
Will follow up in office to plan definitive stone surgery
--- NOTE | 2024-06-12 13:16 | W.PN.ID1 ---
Date of Service
Date of Service: June 12, 2024
Today's Communication
Continue antibiotics
Assessment / Plan
Obstructive uropathy
Suspected bilateral pyelonephritis
Candiduria
Leukocytosis
Fever
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
Asthma
GERD
Dyslipidemia
Migraines
Endometriosis
Diverticulitis
Recommendations:
urine culture: C. albicans
Continue ceftriaxone and fluconazole. At discharge, transition ceftriaxone to cefdinir.
Nausea improved with discontinuation of metronidazole.
Recheck EKG for QTc monitoring today.
Monitor white count and temperature curve.
����������������������������������������������������������
Chief Complaint
-: Fever and UTI (pyelonephritis)
Subjective / Review of Systems
Review of Systems: No Fever, No Chills and No Dysuria
Vital Signs / Physical Exam
Vital Signs
Vital Signs
Temp Pulse Resp BP Pulse Ox
98.4 F 84 22 141/78 96
06/12/24 06:53 06/12/24 06:53 06/12/24 06:53 06/12/24 06:53 06/12/24 06:53
Physical Exam
Constitutional: No Acute Distress, Comfortable and Non-toxic
Eyes: Sclera Anicteric
Cardiovascular: S1/S2; Negative S3/S4
Pulmonary: Non Labored
Gastrointestinal: Soft, Non Tender and Non Distended
Genito-Urinary: Dawn; Negative CVA Tenderness
Extremities: Negative Edema, Cyanosis or Erythema
Neurological: Awake and Alert
Psychological: Calm
Objective Data
Lab Data
Lab Results
06/12/24 07:55
06/12/24 07:55
Estimated Creat Clear 74 ml/min 06/12/24 07:55
Lactic Acid Cancelled 06/06/24 20:15
Total Bilirubin 0.4 mg/dl (0.2-1.3) 06/06/24 16:09
AST 16 U/L (14-36) 06/06/24 16:09
ALT 11 U/L (0-35) 06/06/24 16:09
Alkaline Phosphatase 105 U/L (38-126) 06/06/24 16:09
Most recent labs reviewed.
Micro Results:
06/07/24 13:18 Urine Culture - Final
Urine Angie albicans
06/06/24 17:24 Urine Culture - Final
Urine Angie albicans
06/06/24 16:09 Influenza Types A & B (YUDITH) - Final
Nasal Swab Negative for Influenza A & B, NAAT
Negative results must be combined with clinical observations
and patient history.
Nucleic Acid Amplification test (NAAT)performed on the
[employer] platform.
Imaging:
06/09 CT a/p: mod/severe pelvicaliceal and ureteral dilation without change on the L; on the R with improvement
also fatty liver
06/06/2024 CT abdomen/pelvis without contrast: There is moderate acute bilateral hydroureteronephrosis secondary to bilateral obstructing calculi at the ureterovesical junctions. There is severe circumferential wall thickening in the rectum
suspicious for acute proctitis. Patient is status post sigmoidectomy. There is severe diverticulosis in the distal descending colon. Moderate diffuse hepatic steatosis is noted.
--- NOTE | 2024-06-12 14:47 | W.PN.HOSP.TC ---
Addendum entered and electronically signed by Mor Hernandez MD 06/12/24 16:18:
DW Dr Walton - recommends 2 weeks of fluconazole and 2 weeks of cefdinir 300 mg twice daily.
Original Note:
Today's Communication/Plan
-
DC
Assessment / Plan
Assessment / Plan
Assessment/Plan
59 y/o female with past medical history significant for complicated diverticular disease status post recent robotic sigmoid resection who presented to the [facility] Emergency Department complaining of flank pain with radiation into the
abdomen, fevers/chills, malaise and anorexia. Symptoms have been present / progressive for about 1 week or so prior to arrival. She had been taking Motrin around the clock at home with minimal improvement in her symptoms. She presented to the ED
for further evaluation and treatment. Evaluation in the ED revealed bilateral ureteral stones with perinephric stranding / hydronephrosis.
# Fever chills with obstructing stones-CT scan showed bilateral hydronephrosis for which she had successful placement of the stents. She denies any flank pain. She has candiduria. Unclear if there is pyelonephritis but cannot exclude. Treat is 1.
#Bilateral Ureteral Stones with Obstructive Uropathy and B/L Hydronephrosis status post right ureteroscopic laser lithotripsy with stone manipulation, placement bilateral ureteral stents on 06/07/24
#Fever/chills likely due to UTI/bilateral hydro and obstructing calculus
#Sepsis Secondary to Complicated UTI
-CT abdomen pelvis as per radiologist's report with MODERATE ACUTE BILATERAL HYDROURETERONEPHROSIS secondary to (1) a 3.4 mm obstructing calculus at the right ureterovesical junction and (2) a 5.7 mm obstructing calculus in the left mid to distal
ureter. Severe circumferential wall thickening in the rectum suspicious for an acute proctitis. Previous sigmoidectomy. Severe diverticulosis in the distal descending colon. Moderate diffuse hepatic steatosis. Previous
cholecystectomy.Moderate-sized hiatal hernia.
-Urine culture growing Angie albicans
-On IV ceftriaxone l for possible proctitis but patient is without any symptoms of proctitis.
-Continue Diflucan
-Urology consulted, appreciate their evaluation and recommendations: they are recommending medical support, after patient felt better on 06/08/24, now she is feeling worse --> repeat CT imaging as per urology showed
still some hydronephrosis probably due to bladder distention and urine reflux as per urology-Menjivar catheter in place
- Urology cleared for dc with menjivar
#Severe Circumferential Wall Thickening in Rectum Suspicious for an Acute Proctitis, as per radiologist's report
#Severe Diverticulosis
#History of Sigmoidectomy
-Consulted colorectal surgery, appreciate their evaluation and recommendations: as per colorectal surgery, the proctitis on imaging is of questionable significance and is in their opinion is likely just postoperative edema. Plus patient does not
have any symptoms of proctitis including rectal pain, tenesmus, no diarrhea.
With the persistent nausea Flagyl was discontinued and nausea symptoms resolved. Continue with cephalosporins per ID.
#acute kidney injury (RESOLVED)/anion gap metabolic acidosis likely secondary to urinary tract obstruction
#Hypokalemia -replete
# Recurrent diverticulitis with abscess
-Status post robotic sigmoidectomy with cystorrhaphy and removal of misplaced perc pelvic drain
#History of asthma
-patient not in acute exacerbation
-nebs from home continued
-Singular continued
# Anxiety / Depression
-Lorazepam continued
# GERD
-Pantoprazole continued
#Moderate Diffuse Hepatic Steatosis on CT Imaging
# Complicated Diverticulitis s/p Sigmoid Resection (04/2024)
# Bladder Perforation (misplaced drain) s/p Repair
# Asthma without Acute Exacerbation
# DVT prophylaxis
-Heparin Subq
#CODE status
-full code
DW Uro and ID -ok for dc from their end.
Medically stable for DC.
Total time of dc 32 min
Anticipated Discharge: Today
Subjective/Interval History
-
Date of Service: June 12, 2024
Resolved nausea. had all her meals without difficulty.
Feels much better. Keen to go home. Voices no new specific complaints.
Objective Data
-
Labs:
Laboratory Results
06/12/24
07:55
WBC 8.6
Hgb 10.2 L
Hct 29.1 L
Plt Count 405 H
Sodium 141
Potassium 3.3 L
Chloride 103
Carbon Dioxide 23
BUN 6 L
Creatinine 0.7
Glucose 110 H
Calcium 8.9
Vital Signs:
Vital Signs
Temp Pulse Resp BP Pulse Ox
98.4 F 84 22 141/78 96
06/12/24 06:53 06/12/24 06:53 06/12/24 06:53 06/12/24 06:53 06/12/24 06:53
I&O
06/11/24 06/12/24 06/13/24
06:59 06:59 06:59
Intake Total 2485.0 / 2560.0 1855 / 185
Output Total 2425 / 2425 3700 / 3700
Balance 60.0 / 135.0 -5 / -1845
Review of Systems
-
Constitutional: Denies Fever (didnt feel yesterday fever) or Chills
Respiratory: Denies Trouble Breathing
Cardiac: Denies Chest Pain
Abdomen/GI: Denies Abdominal Pain, Nausea or Vomiting
Neuro: Denies Dizzy
Physical Exam
-
General: Comfortable
Respiratory: Non Labored Respirations; Negative Accessory Resp Muscle Use
Cardiac: Regular Rhythm and S1/S2; Negative Tachycardic
GI: Soft and Nontender
Genito-urinary: Clear Urine and Menjivar
Neuro: AO x 3
Data Reviewed
-
Labs: Labs Reviewed by me
[2024-06-12 15:05] VITALS: BP 158/86
== END 2024-06-12 17:30 | disposition home or self-care (01) | DRG 854 ==
LOC: 4 EAST ACU 22:54
PROVIDERS: Hospitalist; Nurse Practitioner; Nurse Practitioner Family; Registered Nurse; Student in an Organized Health Care Education/Training Program; ADMITTING PHYSICIAN Hospitalist; ATTENDING PHYSICIAN Internal Medicine; CONSULT PHYSICIAN Internal Medicine Infectious Disease; CONSULT PHYSICIAN Specialist; EMERGENCY PHYSICIAN Emergency Medicine; FAMILY PHYSICIAN Family Medicine; OTHER PHYSICIAN Surgery
PROC: 0TF68ZZ Fragmentation in Right Ureter, Via Natural or Artificial Opening Endoscopic (ICD-10-PCS; 2024-06-07)
PROC: 0T788DZ Dilation of Bilateral Ureters with Intraluminal Device, Via Natural or Artificial Opening Endoscopic (ICD-10-PCS; 2024-06-07)
DX: B37.7 Candidal sepsis (principal); E87.20 Acidosis, unspecified; N13.6 Pyonephrosis; N17.9 Acute kidney failure, unspecified; J45.909 Unspecified asthma, uncomplicated; F32.A Depression, unspecified; F41.9 Anxiety disorder, unspecified; K21.9 Gastro-esophageal reflux disease without esophagitis; E78.00 Pure hypercholesterolemia, unspecified; D50.9 Iron deficiency anemia, unspecified; E86.0 Dehydration; G43.909 Migraine, unspecified, not intractable, without status migrainosus; K76.0 Fatty (change of) liver, not elsewhere classified; K57.30 Diverticulosis of large intestine without perforation or abscess without bleeding; K62.89 Other specified diseases of anus and rectum; Z88.0 Allergy status to penicillin; Z79.899 Other long term (current) drug therapy; Z90.49 Acquired absence of other specified parts of digestive tract; K44.9 Diaphragmatic hernia without obstruction or gangrene
CPT/HCPCS: 74018; 74176; 76000; 80048; 80053; 81003; 81015; 83605; 83735; 85025; 85027; 86803; 87086; 87502; 87811; 93005; 94640; 96361; 96374; 96375; 99285; C1894; C2617

== ENCOUNTER 2024-07-12 06:26 | Day surgery (SDC) | payer OTHER, SELFPAY ==
--- NOTE | 2024-07-06 09:18 | PTCARENOTE ---
EKG from 06/12/24 states nonspecific T wave abnormality now evident compared to 06/10/24 EKG. See EKG in [facility] dated 01/12/19 showing prior history.
--- NOTE | 2024-07-06 09:21 | PTCARENOTE ---
Jacinda in Dr Rodriguez office made aware of K 3.3.
--- NOTE | 2024-07-10 13:39 | PTCARENOTE ---
Patients 06/12 potassium 3.3- reviewed by Dr Albrecht- no additional interventions required
[2024-07-12] VITALS (9 sets, daily range): BP systolic 119–160; BP diastolic 68–95; BMI 19.6
[2024-07-12] MEDS: Pyridium 200 MG PO (08:07)
[2024-07-12 08:11] LABS: Urine Albumin Negative (Neg - Trace); Urine Bilirubin Negative (Negative); Urine Character Clear (Clear); Urine Color Yellow; Urine Glucose Negative (Negative); Urine Ketone Negative (Negative); Urine Leukocyte 2+ (Negative); Urine Nitrite Negative (Negative); Urine Occult Blood 2+ (Negative); Urine Urobilinogen Negative (Neg - 1+)
[2024-07-12 09:32] LABS: Urine Amorphous Seen; Urine Hyaline Cast 0-2 /LPF (0-2)
[2024-07-12 09:41] LABS: Urine Red Blood Cell 16-20 /HPF (0-2)
[2024-07-12 09:46] LABS: Urine White Cell 26-30 /HPF (0-5)
--- NOTE | 2024-07-12 10:37 | SUR.PHASEI ---
much calmer, coughing subsided. vss. no pain, chest clear. ready for sds
[2024-07-15 12:39] LABS: Stone Analysis Mass 24 mg
== END 2024-07-12 11:45 | disposition home or self-care (01) ==
LOC: SDS 06:26
PROVIDERS: ATTENDING PHYSICIAN Specialist; FAMILY PHYSICIAN Family Medicine
DX: N20.1 Calculus of ureter (principal)
CPT/HCPCS: 52356; 74018; 76000; 81003; 81015; 82365; 87086; C1894; C2617